=== PATIENT | male | born 1945 | race Caucasian/White ===

== ENCOUNTER 2023-07-14 10:31 | Outpatient (AMB) | payer MEDICARE, SELFPAY ==
--- NOTE | 2023-07-14 10:30 | A.OFFPC_ITS ---
Vital Signs 07/14/23 10:54 Height 5 ft 4.76 in Weight 183 lb 5 oz BMI 30.7 BP 100/58 L Blood Pressure Location Lt radial Position Sitting Respiration 16 Pulse 74 Pulse Source Pulse Oximeter Temp 97.8 F Temp Source Oral Pulse Oximetry (%) 96 Oxygen Delivery Method Room Air Intake Visit Reasons: Establish Care Allergies clindamycin Allergy (Unknown, Verified 07/14/23 10:38) Rash levofloxacin [From Levaquin] Allergy (Unknown, Verified 07/14/23 10:38) Unknown Medication List - Last Reconciled 07/14/23 by Radha Bansal MD albuterol sulfate 90 mcg/actuation inhalation alprazolam mg PO DAILY budesonide 180 mcg/actuation (Pulmicort Flexhaler) inhalation BID cholecalciferol (vitamin D3) 50 mcg PO DAILY cyanocobalamin (vitamin B-12) 1,000 mcg PO DAILY docusate sodium (Colace) 100 mg PO DAILY escitalopram oxalate 20 mg PO DAILY esomeprazole magnesium (Nexium) 20 mg PO BID finasteride 5 mg PO DAILY 90 days fluticasone propionate 50 mcg/actuation 1 spray intranasal BID folic acid 0.4 mg PO DAILY gabapentin 200 mg PO BID hydroxyzine HCl 25 mg PO TID ibuprofen 800 mg PO Q8H latanoprost 0.005% 1 drp ophthalmic (eye) QPM levothyroxine 100 mcg PO DAILY lidocaine 5% patches topical melatonin 3 mg PO BEDTIME PRN tamsulosin 0.8 mg (2 x 0.4 mg) PO DAILY 90 days tizanidine 4 mg PO Q8H PRN Tobacco use date assessed: 07/14/23 Fall risk assessment: No Falls in past year Last assessed Fall Risk: 07/14/23 Dental Screening Dental Screen Date: 07/14/23 Did you have a dental visit in the last 12 months?: Yes Did you have a dental problem in the last 6 months where you did not have access to dental care?: No Was dental information given to patient?: Patient has dentist HPI HPI Comments History of Present Illness Details The patient is a 77 year old male with a past medical history of asthma, hypothyroid, depression, chronic back pain, colon adenocarcinoma, hypogonadism, anxiety, asthma and DAVIN presenting for follow up Asthma: Frequent bronchitis. Follows with Dr Truong. COVID Feb 2023 requiring hospitalization. Required oxygen for ~1 month. Chronic pain-thoracic and flank. Doing ok. He is following with physiatry, Dr Lema and has received injections Had MRI 2020. No new pathology. Kidney imaging (-). Continues to c/o chronic right flank, back and at times rib pain. History of wedge compression fracture T9/T10 07/2011, lumbar laminectomy L4-L5 2013, history of lumbar laminectomy for spinal cord decompression ? 08/06/2017, SI joint dysfunction, vertebral compression fracture 01/22/2018, neurogenic claudications 12/2017. In 2021 was removing snow from the roof-imaging with mildly displaced right posterior 11th rib fracutre and nondisplaced fractures in the right transverse processes of T12 and L1 Endocrine: Is following with Dr Nassar for hypogonadism, hypothyroid, vitamin D deficiency and osteopenia. Anxiety/depression-Follows with Dr Gracia. Stable on lexparo and xanax [facility] Medical History (Updated 07/14/23 @ 11:59 by Radha Bansal MD) Cataracts, bilateral TMJ syndrome Sore throat Rib fracture Occipital headache Neuropathy Internal hernia Hypothyroidism Hemothorax GERD (gastroesophageal reflux disease) Depression COVID-19 Cough Chronic back pain Carcinoma of sigmoid colon Basal cell carcinoma Asthma Androgen deficiency Allergic rhinitis Abdominal pain Surgical History (Updated 07/14/23 @ 10:37 by Jaycee Aguero CMA) Hx of colonoscopy Family History (Updated 07/14/23 @ 11:02 by Jaycee Aguero CMA) Mother Anxiety Dementia Father Chronic obstructive pulmonary disease Brother Chronic obstructive pulmonary disease Brother HTN (hypertension) Maternal Grandmother Heart attack Other FH: mental illness Social History Housing: House Patient Tobacco Use Status: Never used Tobacco e-Cigarette/Vaping Use: Never Used Second Hand Smoke Exposure: Yes service: Yes Current occupational status: retired Cognitive needs: No Hearing needs: No Vision needs: No Questionnaire PHQ-9 Over the last 2 weeks, how often have you been bothered by any of the following problems? 1. Little interest or pleasure in doing things: not at all 2. Feeling down, depressed, or hopeless: not at all 3. Trouble falling or staying asleep, or sleeping too much: several days 4. Feeling tired or having little energy: not at all 5. Poor appetite or overeating: not at all 6. Feeling bad about yourself - or that you are a failure or have let yourself or your family down: not at all 7. Trouble concentrating on things, such as reading the newspaper or watching television: not at all 8. Moving or speaking so slowly that other people could have noticed. Or the opposite - being so fidgety or restless that you have been moving around a lot more than usual: not at all 9. Thoughts that you would be better off or of hurting yourself in some way: not at all Total score: 1 Depression Screening Interpretation: Negative (neg) Depression Screening Done: Yes 81076 - PHQ-9 Billing: Yes Source: Developed by Drs. Dhruv Spencer, Olivia Rodríguez, Rusty Francisco and colleagues, with an educational from [employer]. Thrive Questionnaire Date Thrive assessed: 07/14/23 I am a: Patient What is your living situation today?: I have a steady place to live Within the past 12 months, did the food you bought not last and you didn't have the money to get more?: Never true Within the past 12 months, did you worry whether your food would run out before you got money to buy more?: Never true Do you have trouble paying for medicines?: No Do you have trouble getting transportation to medical appointments?: No Do you have trouble paying your heating and electricity bill?: No Do you have trouble taking care of your child, family member or friend?: No Do you have trouble with day-to-day activities such as bathing, preparing meals, shopping, managing finances, etc.?: No Are you currently unemployed and looking for a job?: No Are you interested in more education?: No Please select the resources that you would like help with: None Currently or been in a relationship where the following occur: no concerns reported THRIVE Score: 0 AUDIT C Alcohol Use Questionnaire (AUDIT-C) 1. How often do you have a drink containing alcohol?: 2-3 times a week 2. How many drinks containing alcohol do you have on a typical day when you are drinking?: 1 or 2 3. How often do you have six or more drinks on one occasion?: Never Total Score: 3 KIERSTEN-7 AMB Questionnaire KIERSTEN-7 Date KIERSTEN - 7 assessed: 07/14/23 Feeling nervous, anxious, or on edge: 1 = Several days Not being able to stop or control worryin = Not at all Worrying too much about different things: 0 = Not at all Trouble relaxin = Several days Being so restless that it is hard to sit still: 0 = Not at all Becoming easily annoyed or irritable: 1 = Several days Feeling afraid as if something awful might happen: 0 = Not at all Total KIERSTEN-7 score (0-4 normal; 5-9 mild; 10-14 moderate; 15-21 severe): 3 Source: Developed by Drs. Dhruv Spencer, Olivia Rodríguez, Rusty Francisco and colleagues, with an educational from [employer]. KIERSTEN-7 Assessment Billing KIERSTEN-7 Assessment Tool: KIERSTEN-7 Assessment 60316 ACT Questionnaire In the past 4 weeks, how much of the time did your asthma keep you from getting as much done at work, school or at home?: None of the time During the past 4 weeks, how often have you had shortness of breath?: Not at all During the past 4 weeks, how often did your asthma symptoms wake you up at night or earlier than usual in the morning?: Not at all During the past 4 weeks, how often have you had to use your rescue inhaler or nebulizer medication?: 2-3 times a week How would you rate your asthma control during the past 4 weeks?: Well controlled ACT Interpretation: Positive Score: 22 Review of Systems Const Details: ROS CONSTITUTIONAL: Denies weight loss, fever and chills. HEENT: Denies changes in vision and hearing. RESPIRATORY: Denies SOB and cough. CV: Denies palpitations and CP GI: Denies abdominal pain, nausea, vomiting and diarrhea. : Denies dysuria and urinary frequency. MSK: Denies new myalgia and joint pain. SKIN: Denies rash and pruritus. NEUROLOGICAL: Denies headache PSYCHIATRIC: Denies recent changes in mood. Physical exam (Primary Care) Vital Signs: PHYSICAL EXAM: GENERAL: Alert and oriented x 3. NAD EYES: EOMI. Anicteric. HENT: Moist mucous membranes. LUNGS: Clear to auscultation bilaterally. CARDIOVASCULAR: Regular rate and rhythm. ABDOMEN: Soft, non-tender +bs EXTREMITIES: No edema. Non-tender. SKIN: No rashes or lesions. Warm. NEUROLOGIC: No focal neurological deficits. CN II-XII grossly intact PSYCHIATRIC: Cooperative. Appropriate mood and affect Depression Screening Interpretation: Negative (neg) Currently or been in a relationship where the following occur: no concerns reported Assessment and Plan Assessment & Plan (1) History of colon cancer: Code(s): Z85.038 - Personal history of other malignant neoplasm of large intestine (2) Asthma: Code(s): J45.909 - Unspecified asthma, uncomplicated Qualifiers: Asthma severity: moderate Asthma persistence: persistent Asthma complication type: uncomplicated Qualified Code(s): J45.40 - Moderate persistent asthma, uncomplicated (3) Androgen deficiency: Comment: continue endocrine f/up Code(s): E29.1 - Testicular hypofunction (4) Chronic back pain: Code(s): M54.9 - Dorsalgia, unspecified; G89.29 - Other chronic pain Qualifiers: Back pain location: back pain in unspecified location Back pain laterality: bilateral Qualified Code(s): M54.9 - Dorsalgia, unspecified; G89.29 - Other chronic pain (5) Hypothyroidism: Code(s): E03.9 - Hypothyroidism, unspecified Qualifiers: Hypothyroidism type: due to Rajesh's thyroiditis Qualified Code(s): E03.8 - Other specified hypothyroidism; E06.3 - Autoimmune thyroiditis (6) GERD (gastroesophageal reflux disease): Code(s): K21.9 - Gastro-esophageal reflux disease without esophagitis Qualifiers: Esophagitis presence: without esophagitis Qualified Code(s): K21.9 - Gastro-esophageal reflux disease without esophagitis Plan: Discussed vaccination schedule Due for covid booster, pneumonia booster Medications: New tamsulosin 0.8 mg (2 x 0.4 mg) PO DAILY 90 days 180 caps 3RF finasteride 5 mg PO DAILY 90 days 90 tabs 3RF Coding Level of Care Code Est Pt Level 4 (52925) Complex EM visit Add On G2211 Diagnoses History of colon cancer Z85.038 Moderate persistent asthma without complication J45.40 Asthma severity: moderate Asthma persistence: persistent Asthma complication type: uncomplicated Androgen deficiency E29.1 Chronic bilateral back pain, unspecified back location M54.9; G89.29 Back pain location: back pain in unspecified location Back pain laterality: bilateral 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
[2023-07-14 10:54] VITALS: BP 100/58; PULSE 74; RESP 16; TEMP 36.6; O2SAT 96; BMI 30.7
== END 2023-07-14 11:34 | disposition home or self-care (01) ==
PROVIDERS: Visit Provider Internal Medicine
DX: Z85.038 Personal history of other malignant neoplasm of large intestine (principal); J45.40 Moderate persistent asthma, uncomplicated; E29.1 Testicular hypofunction; M54.9 Dorsalgia, unspecified; G89.29 Other chronic pain; E03.8 Other specified hypothyroidism; E06.3 Autoimmune thyroiditis; K21.9 Gastro-esophageal reflux disease without esophagitis
CPT/HCPCS: 99214; G2211

== ENCOUNTER 2023-10-13 13:41 | Outpatient (AMB) | payer MEDICARE, SELFPAY ==
--- NOTE | 2023-10-13 13:53 | MHC.PC.OV ---
Vital Signs 10/13/23 13:56 Height 5 ft 8 in Weight 186 lb 2 oz BMI 28.3 BP 110/78 Blood Pressure Location Lt brachial Position Sitting Respiration 12 Pulse 56 Pulse Source Pulse Oximeter Temp 98 F Temp Source Tympanic Pulse Oximetry (%) 95 Oxygen Delivery Method Room Air Intake Visit Reasons: Possible Bronchitis Intake Note: pt was seen at [facility] in [place] x-ray done at [place] negative for pneumonia. patient also states hes be spitting up green sputum Allergies clindamycin Allergy (Unknown, Verified 10/13/23 14:03) Rash levofloxacin [From Levaquin] Allergy (Unknown, Verified 10/13/23 14:03) Unknown Medication List - Last Reconciled 10/13/23 by Melany Owens CNP albuterol sulfate 90 mcg/actuation inhalation albuterol sulfate 90 mcg/actuation 2 puffs inhalation Q4H PRN alprazolam mg PO DAILY budesonide 180 mcg/actuation (Pulmicort Flexhaler) inhalation BID cholecalciferol (vitamin D3) 50 mcg PO DAILY cyanocobalamin (vitamin B-12) 1,000 mcg PO DAILY docusate sodium (Colace) 100 mg PO DAILY escitalopram oxalate 20 mg PO DAILY esomeprazole magnesium (Nexium) 20 mg PO BID finasteride 5 mg PO DAILY 90 days fluticasone furoate 200 mcg/actuation (Arnuity Ellipta) 1 inh inhalation Q24H fluticasone propionate 50 mcg/actuation 1 spray intranasal BID folic acid 0.4 mg PO DAILY gabapentin 200 mg PO BID hydroxyzine HCl 25 mg PO TID ibuprofen 800 mg PO Q8H latanoprost 0.005% 1 drp ophthalmic (eye) QPM levothyroxine 100 mcg PO DAILY lidocaine 5% patches topical melatonin 3 mg PO BEDTIME PRN tamsulosin 0.8 mg (2 x 0.4 mg) PO DAILY 90 days tizanidine 4 mg PO Q8H PRN Tobacco use date assessed: 07/14/23 Dental Screening Dental Screen Date: 07/14/23 HPI HPI Comments History of Present Illness Details 78-year-old male presents with complaints of productive cough with occasional green sputum, especially at night while lying. He also reports associated head congestion and tiredness. His symptoms start two and half weeks days ago without improvement. His symptoms has not worsend. He has been taking mucinex with some relief. He has also been using his asthma inhalers. No difficulty breathing or chest pain. No fever, chills, body aches. He has had a few covid home tests that resulted negative. He notes that his initially had a cough. He notes that 3 days ago, he was evaluated and treated at [facility] urgent care clinic and was prescribed predisone 20mg daily which he has been taking as prescribed. X-ray was negative. Rapid strep was also negative. Review [facility] health record on 10/11/2023 revealed normal chest x-ray and negative rapid strep. [facility] Medical History (Updated 10/13/23 @ 14:31 by Melany Owens CNP) Cataracts, bilateral TMJ syndrome Sore throat Rib fracture Occipital headache Neuropathy Internal hernia Hypothyroidism Hemothorax GERD (gastroesophageal reflux disease) Depression COVID-19 Cough Chronic back pain Carcinoma of sigmoid colon Basal cell carcinoma Asthma Androgen deficiency Allergic rhinitis Abdominal pain Surgical History (Updated 07/14/23 @ 10:37 by Jaycee Aguero CMA) Hx of colonoscopy Family History (Updated 07/14/23 @ 11:02 by Jaycee Aguero CMA) Mother Anxiety Dementia Father Chronic obstructive pulmonary disease Brother Chronic obstructive pulmonary disease Brother HTN (hypertension) Maternal Grandmother Heart attack Other FH: mental illness Social History Housing: House Patient Tobacco Use Status: Never used Tobacco e-Cigarette/Vaping Use: Never Used Second Hand Smoke Exposure: Yes service: Yes Current occupational status: retired Cognitive needs: No Hearing needs: No Vision needs: No Questionnaire Thrive Questionnaire Date Thrive assessed: 07/14/23 KIERSTEN-7 AMB Questionnaire KIERSTEN-7 Date KIERSTEN - 7 assessed: 07/14/23 Source: Developed by Drs. Dhruv Spencer, Olivia Rodríguez, Rusty Francisco and colleagues, with an educational from [email or web address]. Review of Systems Const Details: Const Denies chills, Reports fatigue, Denies fever(s), Denies headache(s) and Denies weakness ENT Reports as per HPI Card Denies chest pain, Denies lightheadedness, Denies dyspnea and Denies other (Palpitations) Resp Reports cough, Denies dyspnea, Denies wheezing and Denies other ( shortness of breath) GI Denies abdominal pain, Denies melena, Denies hematochezia, Denies change in bowel habits, Denies dyspepsia and Denies nausea Denies hematuria and Denies dysuria Musc Denies abnormal gait, Denies myalgias, Denies arthralgias, Denies numbness and Denies tingling Skin/Breast Denies rash, Denies unusual bruising and Denies wounds Neuro Denies abnormal gait, Denies dizziness, Denies headache(s), Denies memory loss, Denies numbness, Denies Sensory deficit (Neuro), Denies tingling and Denies weakness Endo Denies cold intolerance, Reports fatigue, Denies heat intolerance, Denies polydipsia and Denies polyuria Aller/Immun Denies wheezing Physical exam (Primary Care) Vital Signs: Last Vital Signs Temp 98 F 10/13/23 13:56 Pulse 56 10/13/23 13:56 Resp 12 10/13/23 13:56 Pulse Ox 95 10/13/23 13:56 Oxygen Delivery Method Room Air 10/13/23 13:56 Tobacco/Smoking Status: Tobacco use Status Tobacco use date assessed 07/14/23 10/13/23 13:59 Patient Tobacco Use Status Never used Tobacco 10/13/23 13:59 e-Cigarette/Vaping Use Never Used 10/13/23 13:59 Thrive Assessment: Date of Thrive Assessment Date Thrive assessed 07/14/23 10/13/23 13:59 Const Other: General: no acute distress and well developed Nutritional Appearance: well nourished Orientation/consciousness: patient oriented x3 HENMT Head is normocephalic Bilateral ear canal and TM are normal Nasal turbinates and oropharynx are pink and moist Sinuses are nontender with palpation No auricular or cervical lymphadenopathy Eyes General: appearance normal, both eyes and all related structures Pupils: Equal, round and reactive pupils present EOM: EOMs intact bilaterally Resp Effort & Inspection: normal respiratory effort Auscultation: clear to auscultation bilaterally Cardio Rate: regular rate Rhythm: regular rhythm Heart sounds: S1 normal heart sound present, S2 normal heart sound present, no gallops, no murmurs and no rubs GI Palpation (GI): No Abdominal aortic bruit present, Soft to palpation, nontender, No hepatosplenomegaly present and No Rebound tenderness present Auscultation: normal bowel sounds General: Yes no CVA tenderness Back/Spine/Pelvis Back: no CVA tenderness Cervical Spine: cervical ROM normal and No Cervical spine tenderness Thoracic/Lumbar Spine: thoraco-lumbar ROM normal, No pain with thoraco-lumbar ROM, No thoracic spinal tenderness and No lumbar spinal tenderness Extrem General: Yes normal to inspection, No edema and No calf tenderness Skin General: warm and dry. Normal skin color. Normal skin turgor Neuro General: patient oriented x3, gait normal and no focal neuro deficit Cranial nerves: Yes Equal, round and reactive pupils present Cognition (Neuro): normal cognition Gait exam (Neuro): Normal gait present Sensory Exam: No Sensory deficit (Neuro) Psych Appearance: grossly normal Affect: normal affect Attitude: cooperative Thought process: Normal thought process present Assessment and Plan Assessment & Plan (1) Cough: Code(s): R05.9 - Cough, unspecified Plan: Productive cough x two and a half weeks that is worse while lying down at night Was evaluated and treated at [facility] urgent care 3 days ago. Chest x-ray and rapid strep were negative. He has been taking prednisone 20 mg daily as prescribed. He also takes Mucinex some relief. Lung sounds clear and equal bilaterally Likely upper respiratory virus Continue current treatment regimen Benzonatate ordered. Take as prescribed for cough Follow-up with worsening or new symptoms Verbalized understanding and agreed with the treatment plan Medications: New benzonatate 200 mg PO BID PRN 10 caps 1RF cough Coding Level of Care Code Est Pt Level 4 (67508) Diagnoses Cough R05.9
[2023-10-13 13:56] VITALS: BP 110/78; PULSE 56; RESP 12; TEMP 36.6; O2SAT 95; BMI 28.3
== END 2023-10-13 14:49 | disposition home or self-care (01) ==
PROVIDERS: Visit Provider Nurse Practitioner Family
DX: R05.9 Cough, unspecified (principal)
CPT/HCPCS: 99214

== ENCOUNTER 2023-11-16 11:26 | Outpatient (AMB) | payer MEDICARE, SELFPAY ==
--- NOTE | 2023-11-16 11:27 | A.OFFPC_ITS ---
Vital Signs 11/16/23 11:32 Height 5 ft 8 in BMI Reason not done Patient refused/unable BP 120/62 Blood Pressure Location Lt brachial Position Sitting Respiration 14 Pulse 67 Pulse Source Pulse Oximeter Pulse Oximetry (%) 98 Oxygen Delivery Method Room Air Intake Visit Reasons: Hdfu broken toes/ flank pain Intake Note: follow up on right leg and broken toes Allergies clindamycin Allergy (Unknown, Verified 11/16/23 11:35) Rash levofloxacin [From Levaquin] Allergy (Unknown, Verified 11/16/23 11:35) Unknown Medication List - Last Reconciled 11/16/23 by Nicole Monge, DIGESTER CAPPER- albuterol sulfate 90 mcg/actuation 2 puffs inhalation Q4H PRN alprazolam mg PO DAILY benzonatate 200 mg PO BID PRN budesonide 180 mcg/actuation (Pulmicort Flexhaler) inhalation BID cholecalciferol (vitamin D3) 50 mcg PO DAILY cyanocobalamin (vitamin B-12) 1,000 mcg PO DAILY docusate sodium (Colace) 100 mg PO DAILY escitalopram oxalate 20 mg PO DAILY esomeprazole magnesium (Nexium) 20 mg PO BID finasteride 5 mg PO DAILY 90 days fluticasone furoate 200 mcg/actuation (Arnuity Ellipta) 1 inh inhalation Q24H fluticasone propionate 50 mcg/actuation 1 spray intranasal BID folic acid 0.4 mg PO DAILY gabapentin 200 mg PO BID hydroxyzine HCl 25 mg PO TID ibuprofen 800 mg PO Q8H latanoprost 0.005% 1 drp ophthalmic (eye) QPM levothyroxine 100 mcg PO DAILY lidocaine 5% patches topical melatonin 3 mg PO BEDTIME PRN tamsulosin 0.8 mg (2 x 0.4 mg) PO DAILY 90 days tizanidine 4 mg PO Q8H PRN Tobacco use date assessed: 07/14/23 Dental Screening Dental Screen Date: 07/14/23 HPI HPI Comments History of Present Illness Details 78 y/o M here today for HDF. Paperwork christine orozco. Medications reconciled. No changes. 11/04/2023 [facility] ED visit for me chanical fall down 4 stairs Xray Right foot fracture of the 5th and possibly 3rd and 4th proximal phalanges Lumbar spine no acute findings CT of abd shows constipation ? SBO/ileus abrasion lower thoracic/lumbar spine DC Plan: Shailesh tape the 5th adn 5th toe 2nd/3rd toe & ortho consult Self referred to [facility] 11/09/23, consult note n/a. Repeat Xray done at that time. Next appt 11/25/2023 with Foot PA. Using a walking boot; this is causing ankle pain. Feels more unsteady and fears another fall w/ this use of the boot. Does take it off and walk w/ his Sketchers. Reports this feels better than the walking boot. Takes miralax daily and dulcolax. Chronic issues of which he manages. Denies any acute or new GI issues. In other regards, having some drainage from bilat eyes; left than right; itchy; worse since onset; started a few days ago. known allergies, was outside. otc drops helped a little. denies any pain, photophobia. Exam: Awake alert oriented, no acute distress, accompanied by Conjunctival injection bilat, worse on the left, purulent drainage bilat, PERRLA, EOMI, no photophobia, no edema Right foot neurovascularly intact, pain over the 4th and 5th phalanges with pal pation Healing skin tear to posterior back without signs of secondary infection Plan: He was giving an offloading shoe. He was able to walk. Reports that his foot felt fine and he felt more comfortable in regards to his steadiness. Recommend using this instead of the walking boot to reduce risk for falls. Recommend follow up with Orthopedics as scheduled Start polymyxin for the conjunctivitis Continue bowel regimen for the chronic constipation and finding on the CT scan Use a good moisturizer to the well healing area on your back, no need to use any antibiotic creams or to cover This note is constructed using voice recognition software. While every effort has been made to ensure accuracy in computer science intern, still errors may have been included Sometimes, these errors may affect the content or meaning of the given sentence . Total time spent caring for the patient today was 30 minutes. This includes time spent before the visit reviewing the chart, time spent during the visit, and time spent after the visit on documentation [facility] Medical History (Updated 11/16/23 @ 12:00 by Nicole Monge, DEVONTE-) Cataracts, bilateral TMJ syndrome Sore throat Rib fracture Occipital headache Neuropathy Internal hernia Hypothyroidism Hemothorax GERD (gastroesophageal reflux disease) Depression COVID-19 Cough Chronic back pain Carcinoma of sigmoid colon Basal cell carcinoma Asthma Androgen deficiency Allergic rhinitis Abdominal pain Surgical History (Updated 07/14/23 @ 10:37 by Jaycee Aguero CMA) Hx of colonoscopy Family History (Updated 07/14/23 @ 11:02 by Jaycee Aguero CMA) Mother Anxiety Dementia Father Chronic obstructive pulmonary disease Brother Chronic obstructive pulmonary disease Brother HTN (hypertension) Maternal Grandmother Heart attack Other FH: mental illness Social History Housing: House Patient Tobacco Use Status: Never used Tobacco e-Cigarette/Vaping Use: Never Used Second Hand Smoke Exposure: Yes service: Yes Current occupational status: retired Cognitive needs: No Hearing needs: No Vision needs: No Questionnaire Thrive Questionnaire Date Thrive assessed: 07/14/23 KIERSTEN-7 AMB Questionnaire KIERSTEN-7 Date KIERSTEN - 7 assessed: 07/14/23 Source: Developed by Drs. Dhruv Spencer, Olivia Rodríguez, Rusty Francisco and colleagues, with an educational from [employer]. Physical exam (Primary Care) Vital Signs: Last Vital Signs Pulse 67 11/16/23 11:32 Resp 14 11/16/23 11:32 BP 120/62 11/16/23 11:32 Pulse Ox 98 11/16/23 11:32 Oxygen Delivery Method Room Air 11/16/23 11:32 Tobacco/Smoking Status: Tobacco use Status Tobacco use date assessed 07/14/23 11/16/23 11:30 Patient Tobacco Use Status Never used Tobacco 11/16/23 11:30 e-Cigarette/Vaping Use Never Used 11/16/23 11:30 Thrive Assessment: Date of Thrive Assessment Date Thrive assessed 07/14/23 11/16/23 11:30 Assessment and Plan Assessment & Plan (1) Hospital discharge follow-up: Code(s): Z09 - Encounter for follow-up examination after completed treatment for conditions other than malignant neoplasm (2) Fall down stairs: Code(s): W10.8XXA - Fall (on) (from) other stairs and steps, initial encounter Qualifiers: Encounter type: sequela Qualified Code(s): W10.8XXS - Fall (on) (from) other stairs and steps, sequela (3) Closed fracture of phalanx of right fifth toe: Code(s): S92.501A - Displaced unspecified fracture of right lesser toe(s), initial encounter for closed fracture Qualifiers: Encounter type: sequela Qualified Code(s): S92.501S - Displaced unspecified fracture of right lesser toe(s), sequela (4) Constipation: Code(s): K59.00 - Constipation, unspecified Qualifiers: Constipation type: chronic idiopathic constipation Qualified Code(s): K59.04 - Chronic idiopathic constipation Medications: New polymyxin B sulf-trimethoprim 10,000 unit- 1 mg/mL APPLY TO BOTH EYES while awake; do not exceed 6 doses in 24 hours 1 drp ophthalmic (eye) QID 10 mL 0RF 5 days Patient Instructions: Put cold or warm wet cloths on your eye a few times a day if the eye hurts. Do not wear contact lenses or eye makeup until the pink eye is gone. Throw away any eye makeup you were using when you got pink eye. Clean your contacts and storage case. Wash bed linen after 24 hours of antibiotic eye drop use. Do not share eye drops. Use a clean towel to wash your face each day until symptoms are gone. This will help prevent recurrence. What is pink eye? Hanska eye is a term people use to describe an infection or irritation of the eye. The medical term for pink eye is conjunctivitis. If you have pink eye, your eye (or eyes) might: ?Turn pink or red ?Weep or ooze a gooey liquid ?Become itchy or burn ?Get stuck shut, especially when you first wake up Hanska eye can be caused by an infection, allergies, or an unknown irritation. Can you catch pink eye from someone else? Yes. When pink eye is caused by an infection, it can spread easily. Usually, people catch it from touching something that has been in contact with an inf ected person's eye. It can also be spread when an infected person touches someone else, and then that person touches their eye. If someone you know has pink eye, avoid touching their pillowcases, towels, or other personal items. When should I see a doctor or nurse? See your doctor or nurse if your eye hurts, or if you still have trouble seeing clearly after blinking. If you do not have these problems, but think you might have pink eye, your doctor or nurse might be able to give you advice over the phone. Can pink eye be treated? Most cases of pink eye go away on their own without treatment. But some types of pink eye can be treated. When pink eye is caused by infection, it is usually caused by a virus, so antibiotics will not help. Still, pink eye caused by a virus can last several days. ?Hanska eye caused by an infection with bacteria can be treated with antibiotic eye drops, gel, or ointment. ?Hanska eye caused by other problems can be treated with eye drops normally used to treat allergies. These drops will not cure the pink eye, but they can help with itchiness and irritation. When using eye drops for infection, do not touch your healthy eye after touching your infected eye. Also, do not touch the bottle or dropper directly onto 1 eye and then use it in the other. These things can cause the infection to spread from 1 eye to the other. If your eyelids feel swollen, it might also help to hold a cool wet cloth on the area. What if I wear contact lenses? If you wear contact lenses and you have symptoms of pink eye, it is really important to have a doctor look at your eyes. In people who wear contacts, the symptoms of pink eye can be caused by corneal abrasion. Corneal abrasion is a scratch on the eye and can be a serious problem. During treatment for eye infections, you might need to stop wearing your contacts for a short time. If your contacts are disposable, throw them away and use new ones. If your contacts are not disposable, you need to carefully clean t hem. You should also throw away your contact lens case and get a new one. When can I go back to work or school? If you have pink eye caused by an infection, remember that it can spread very easily. The best way to avoid spreading it is to stay away from other people until you no longer have symptoms. If this is not possible, wash your hands often (figure 1). It's also important to avoid touching your eyes and sharing items that could spread the infection. Schools and day cares usually have rules about when a child with pink eye can return. If a child has a bacterial infection, they will probably need to stay home until they have gotten antibiotic eye drops or ointment for 24 hours. Can pink eye be prevented? To keep from getting or spreading pink eye caused by an infection: ?Wash your hands often with soap and water. ?Try not to touch your eyes. ?Avoid sharing towels, bedding, or other personal items with a person who has pink eye. If your pink eye is caused by allergies, it might help to stay inside with the windows shut as much as possible during peak allergy seasons. What problems should I watch for? Call your doctor or nurse if: ?You have trouble seeing clearly after blinking. ?Your eye is still red or has drainage after 3 days. ?You have eye pain that is getting worse. Coding Level of Care Code Est Pt Level 4 (53088) Complex EM visit Add On G2211 Diagnoses Hospital discharge follow-up Z09 Fall down stairs, sequela W10.8XXS Encounter type: sequela Closed fracture of phalanx of right fifth toe, sequela S92.501S Encounter type: sequela Chronic idiopathic constipation K59.04 Constipation type: chronic idiopathic constipation
[2023-11-16 11:32] VITALS: BP 120/62; PULSE 67; RESP 14; O2SAT 98
== END 2023-11-16 13:49 | disposition home or self-care (01) ==
PROVIDERS: Visit Provider Nurse Practitioner Family
DX: Z09 Encounter for follow-up examination after completed treatment for conditions other than malignant neoplasm (principal); W10.8XXS Fall (on) (from) other stairs and steps, sequela; S92.50 Unspecified fracture of lesser toe(s); K59.04 Chronic idiopathic constipation

== ENCOUNTER → 2023-11-16 11:26 | Outpatient (BNVA) | payer MEDICARE, SELFPAY | PROVIDERS: Visit Provider Nurse Practitioner Family | DX: S92.50 Unspecified fracture of lesser toe(s) (principal); W10.8XXS Fall (on) (from) other stairs and steps, sequela; K59.04 Chronic idiopathic constipation | CPT/HCPCS: 99212 ==

== ENCOUNTER 2024-01-18 14:02 | Outpatient (AMB) | payer MEDICARE, SELFPAY ==
--- NOTE | 2024-01-18 14:16 | MHC.PC.OV ---
Vital Signs 01/18/24 14:23 Height 5 ft 8 in Weight 186 lb BMI 28.3 BP 112/52 L Blood Pressure Location Rt brachial Position Sitting Pulse 68 Pulse Source Pulse Oximeter Pulse Oximetry (%) 98 Oxygen Delivery Method Room Air Intake Visit Reasons: Pain on feet and side of the body Intake Note: bilateral hip and foot pain. Needs refill on Tizanadine. Allergies clindamycin Allergy (Unknown, Verified 11/16/23 11:35) Rash levofloxacin [From Levaquin] Allergy (Unknown, Verified 11/16/23 11:35) Unknown Tobacco use date assessed: 07/14/23 Dental Screening Dental Screen Date: 07/14/23 HPI HPI Comments History of Present Illness Details The patient is a 77 year old male with a past medical history of asthma, hypothyroid, depression, chronic back pain, colon adenocarcinoma, hypogonadism, anxiety, asthma and DAVIN presenting for follow up 11/04/2023 [facility] ED visit for mechanical fall down 4 stairs Xray Right foot fracture of the 5th and possibly 3rd and 4th proximal phalanges Lumbar spine no acute findings CT of abd shows constipation ? SBO/ileus Abrasion lower thoracic/lumbar spine Continues follow up with [facility]. Request refills muscle relaxant Has had recent increased right flank pain, right mid to lower back. He does have a history of kidney stone in the past Asthma: Frequent bronchitis. Follows with Dr Truong. FUAD Feb 2023 requiring hospitalization. Required oxygen for ~1 month. Chronic pain-thoracic and flank. Doing ok. He is following with physiatry, Dr Lema and has received injections Had MRI 2020. No new pathology. Kidney imaging (-). Continues to c/o chronic right flank, back and at times rib pain. History of wedge compression fracture T9/T10 07/2011, lumbar laminectomy L4-L5 2013, history of lumbar laminectomy for spinal cord decompression ? 08/06/2017, SI joint dysfunction, vertebral compression fracture 01/22/2018, neurogenic claudications 12/2017. In 2021 was removing snow from the roof-imaging with mildly displaced right posterior 11th rib fracutre and nondisplaced fractures in the right transverse processes of T12 and L1 Endocrine: Is following with Dr Nassar for hypogonadism, hypothyroid, vitamin D deficiency and osteopenia. Says last two labs there with high K Anxiety/depression-Follows with Dr Gracia. Stable on lexparo and xanax ROS see HPI PHYSICAL EXAM: GENERAL: Alert and oriented x 3. NAD EYES: EOMI. Anicteric. HENT: Moist mucous membranes. No scleral icterus. No cervical lymphadenopathy. LUNGS: Clear to auscultation bilaterally. CARDIOVASCULAR: Regular rate and rhythm. No murmur. No JVD. ABDOMEN: Soft, non-tender +bs EXTREMITIES: No edema. Non-tender. SKIN: No rashes or lesions. Warm. NEUROLOGIC: No focal neurological deficits. CN II-XII grossly intact PSYCHIATRIC: Cooperative. Appropriate mood and affect [facility] Medical History Cataracts, bilateral TMJ syndrome Sore throat Rib fracture Occipital headache Neuropathy Internal hernia Hypothyroidism Hemothorax GERD (gastroesophageal reflux disease) Depression COVID-19 Cough Chronic back pain Carcinoma of sigmoid colon Basal cell carcinoma Asthma Androgen deficiency Allergic rhinitis Abdominal pain Surgical History Hx of colonoscopy Family History Mother Anxiety Dementia Father Chronic obstructive pulmonary disease Brother Chronic obstructive pulmonary disease Brother HTN (hypertension) Maternal Grandmother Heart attack Other FH: mental illness Social History Housing: House Alcohol intake: former Patient Tobacco Use Status: Never used Tobacco e-Cigarette/Vaping Use: Never Used Second Hand Smoke Exposure: Yes service: Yes Current occupational status: retired Cognitive needs: No Hearing needs: No Vision needs: No Questionnaire PHQ-9 Over the last 2 weeks, how often have you been bothered by any of the following problems? 1. Little interest or pleasure in doing things: not at all 2. Feeling down, depressed, or hopeless: not at all 3. Trouble falling or staying asleep, or sleeping too much: several days 4. Feeling tired or having little energy: not at all 5. Poor appetite or overeating: not at all 6. Feeling bad about yourself - or that you are a failure or have let yourself or your family down: not at all 7. Trouble concentrating on things, such as reading the newspaper or watching television: not at all 8. Moving or speaking so slowly that other people could have noticed. Or the opposite - being so fidgety or restless that you have been moving around a lot more than usual: not at all 9. Thoughts that you would be better off or of hurting yourself in some way: not at all Total score: 1 Depression Screening Interpretation: Negative Depression Screening Done: Yes 99898 - PHQ-9 Billing: Yes Source: Developed by Drs. Dhruv Spencer, Olivia Rodríguez, Rusty Francisco and colleagues, with an educational from [employer]. Thrive Questionnaire Date Thrive assessed: 01/17/24 I am a: Patient What is your living situation today?: I have a steady place to live Within the past 12 months, did the food you bought not last and you didn't have the money to get more?: Never true Within the past 12 months, did you worry whether your food would run out before you got money to buy more?: Never true Do you have trouble paying for medicines?: No Do you have trouble getting transportation to medical appointments?: No Do you have trouble paying your heating and electricity bill?: No Do you have trouble taking care of your child, family member or friend?: No Do you have trouble with day-to-day activities such as bathing, preparing meals, shopping, managing finances, etc.?: No Are you currently unemployed and looking for a job?: No Are you interested in more education?: Yes Please select the resources that you would like help with: None Currently or been in a relationship where the following occur: No concerns reported THRIVE Score: 0 AUDIT C Alcohol Use Questionnaire (AUDIT-C) 2. How many drinks containing alcohol do you have on a typical day when you are drinking?: 1 or 2 Total Score: 0 KIERSTEN-7 AMB Questionnaire KIERSTEN-7 Date KIERSTEN - 7 assessed: 07/14/23 Feeling nervous, anxious, or on edge: 0 = Not at all Not being able to stop or control worryin = Several days Worrying too much about different things: 1 = Several days Trouble relaxin = Several days Being so restless that it is hard to sit still: 0 = Not at all Becoming easily annoyed or irritable: 1 = Several days Feeling afraid as if something awful might happen: 0 = Not at all Total KIERSTEN-7 score (0-4 normal; 5-9 mild; 10-14 moderate; 15-21 severe): 4 Source: Developed by Drs. Dhruv Spencer, Olivia Rodríguez, Rusty Francisco and colleagues, with an educational from [employer]. Physical exam (Primary Care) Vital Signs: Last Vital Signs Pulse 68 01/18/24 14:23 BP 112/52 L 01/18/24 14:23 Pulse Ox 98 01/18/24 14:23 Oxygen Delivery Method Room Air 01/18/24 14:23 BMI result Body Mass Index 28.3 Tobacco/Smoking Status: Tobacco use Status Tobacco use date assessed 07/14/23 01/18/24 14:22 Patient Tobacco Use Status Never used Tobacco 01/18/24 14:25 e-Cigarette/Vaping Use Never Used 01/18/24 14:25 PHQ-9: PHQ-9 Score PHQ-9: Total score 1 02/01/24 01:47 Depression Screening Interpretation: Negative Thrive Assessment: Date of Thrive Assessment Date Thrive assessed 01/17/24 01/18/24 14:22 Currently or been in a relationship where the following occur: No concerns reported Coding Level of Care Code Est Pt Level 4 (82691) Diagnoses Right flank pain R10.9 Additional Codes PHQ-9 - 04175 - PHQ-9 Billing: Yes ([id number]) Assessment & Plan Assessment & Plan (1) Right flank pain: Code(s): R10.9 - Unspecified abdominal pain Category: Medical Plan: Check urine, US Will send prn kayexelate Orders: Orders US retroperitoneal comp 01/18/24 R10.9 - Unspecified abdominal pain UA CC w/rflx Micro + Cult 01/18/24 R10.9 - Unspecified abdominal pain Basic Metabolic Panel 01/18/24 E87.5 - Hyperkalemia Medications: New tizanidine 4 mg PO Q8H PRN 90 caps 3RF muscle spasticity sodium polystyrene sulfonate 15 grams PO BID PRN 150 grams 1RF elevated potassium
[2024-01-18 14:23] VITALS: BP 112/52; PULSE 68; O2SAT 98; BMI 28.3
== END 2024-01-18 14:47 | disposition home or self-care (01) ==
PROVIDERS: Visit Provider Internal Medicine
DX: R10.9 Unspecified abdominal pain (principal)

== ENCOUNTER → 2024-01-18 14:02 | Outpatient (BNVA) | payer MEDICARE, SELFPAY | PROVIDERS: Visit Provider Internal Medicine | DX: R10.9 Unspecified abdominal pain (principal); E78.5 Hyperlipidemia, unspecified; J45.909 Unspecified asthma, uncomplicated; F41.9 Anxiety disorder, unspecified; F32.A Depression, unspecified; G89.29 Other chronic pain; M54.6 Pain in thoracic spine; Z87.442 Personal history of urinary calculi; Z79.899 Other long term (current) drug therapy | CPT/HCPCS: 36415; 80048; 81003; 96127; 99212 ==

== ENCOUNTER 2024-01-18 14:49 | Outpatient (REF) | payer MEDICARE, SELFPAY ==
[2024-01-18 18:42] LABS: Appearance Urine Clear; Color Urine Yellow; Glucose Urine UA Negative (Negative); Leukocyte Esterase Urine Negative (Negative); Nitrite Urine Negative (Negative); PH 5.5 (5.0-9.0); Urine Blood Negative (Negative); Urine Ketones Negative (Negative); Urine Protein Negative (Neg-Trace)
[2024-01-18 18:47] LABS: Anion Gap 11 (12-20); Blood Urea Nitrogen 23 mg/dL (9-16); Calcium 9.2 mg/dL (8.4-10.2); Carbon Dioxide 26 mmol/L (22-29); Chloride 106 mmol/L (96-108); Estimated Glomerular Filt Rate > 60; Glucose Random 106 mg/dL (60-115); Potassium 4.4 mmol/L (3.3-5.1); Sodium 139 mmol/L (135-145)
== END 2024-01-18 14:50 | disposition home or self-care (01) ==
LOC: HO.WFDLDS 14:49
PROVIDERS: Visit Provider Internal Medicine
DX: Z13.89 Encounter for screening for other disorder (principal)
CPT/HCPCS: 36415; 80048; 81003

== ENCOUNTER 2024-02-22 14:51 | Outpatient (AMB) | payer MEDICARE, SELFPAY ==
--- NOTE | 2024-02-22 15:11 | A.OFFPC_ITS ---
Vital Signs 02/22/24 15:17 Height 5 ft 8 in Weight 187 lb 6 oz BMI 28.5 BP 120/60 Blood Pressure Location Lt brachial Position Sitting Pulse 69 Pulse Source Pulse Oximeter Pulse Oximetry (%) 99 Oxygen Delivery Method Room Air Intake Visit Reasons: annual wellness visit Intake Note: Medical annual wellness Associate Financial Planner Required: No Allergies clindamycin Allergy (Unknown, Verified 02/22/24 15:11) Rash levofloxacin [From Levaquin] Allergy (Unknown, Verified 02/22/24 15:11) Unknown Tobacco use date assessed: 02/22/24 Dental Screening Dental Screen Date: 07/14/23 HPI HPI Comments History of Present Illness Details The patient is a 77 year old male with a past medical history of asthma, hypothyroid, depression, chronic back pain, colon adenocarcinoma, hypogonadism, anxiety, asthma and DAVIN presenting for AWV Asthma: Frequent bronchitis. Follows with Dr Truong at [facility]. He has been reschedule for his barium swallow multiple times due to machine malfunction. Had COVID Feb 2023 requiring hospitalization. Required oxygen for ~1 month. Chronic pain-thoracic and flank. Doing ok. He is following with physiatry, Dr Lema and has received injections Had MRI 2020. No new pathology. Kidney imaging (-). Continues to c/o chronic right flank, back and at times rib pain. History of wedge compression fracture T9/T10 07/2011, lumbar laminectomy L4-L5 2013, history of lumbar laminectomy for spinal cord decompression ? 08/06/2017, SI joint dysfunction, vertebral compression fracture 01/22/2018, neurogenic claudications 12/2017. In 2021 was removing snow from the roof-imaging with mildly displaced right posterior 11th rib fracutre and nondisplaced fractures in the right transverse processes of T12 and L1 Endocrine: Is following with Dr Nassar for hypogonadism, hypothyroid, vitamin D deficiency and osteopenia. Has had higher K on some of her recent labs Anxiety/depression-Follows with Dr Gracia. Stable on lexparo and xanax GI: Increased, almost nightly reflux despite daily PPI therapy. This is worsened over past year. He has chronic constipation, is on miralax, senna and prn dulcolax but also too feels like this has worsened in the past year. Vaccinations UTD per patient at pharmacy ROS see HPI PHYSICAL EXAM: GENERAL: Alert and oriented x 3. NAD EYES: EOMI. Anicteric. HENT: Moist mucous membranes. No scleral icterus. No cervical lymphadenopathy. LUNGS: Clear to auscultation bilaterally. CARDIOVASCULAR: Regular rate and rhythm. No murmur. No JVD. ABDOMEN: Soft, non-tender +bs EXTREMITIES: No edema. Non-tender. SKIN: No rashes or lesions. Warm. NEUROLOGIC: No focal neurological deficits. CN II-XII grossly intact PSYCHIATRIC: Cooperative. Appropriate mood and affect REPLACED BY [facility] Medical History Cataracts, bilateral TMJ syndrome Sore throat Rib fracture Occipital headache Neuropathy Internal hernia Hypothyroidism Hemothorax GERD (gastroesophageal reflux disease) Depression COVID-19 Cough Chronic back pain Carcinoma of sigmoid colon Basal cell carcinoma Asthma Androgen deficiency Allergic rhinitis Abdominal pain Surgical History Hx of colonoscopy Family History Mother Anxiety Dementia Father Chronic obstructive pulmonary disease Brother Chronic obstructive pulmonary disease Brother HTN (hypertension) Maternal Grandmother Heart attack Other FH: mental illness Social History Housing: House Alcohol intake: former Patient Tobacco Use Status: Never used Tobacco e-Cigarette/Vaping Use: Never Used Second Hand Smoke Exposure: Yes service: Yes Current occupational status: retired Cognitive needs: No Hearing needs: No Vision needs: No Questionnaire Thrive Questionnaire Date Thrive assessed: 01/17/24 I am a: Patient What is your living situation today?: I have a steady place to live Within the past 12 months, did the food you bought not last and you didn't have the money to get more?: Never true Within the past 12 months, did you worry whether your food would run out before you got money to buy more?: Never true Do you have trouble paying for medicines?: No Do you have trouble getting transportation to medical appointments?: No Do you have trouble paying your heating and electricity bill?: No Do you have trouble taking care of your child, family member or friend?: No Do you have trouble with day-to-day activities such as bathing, preparing meals, shopping, managing finances, etc.?: No Are you currently unemployed and looking for a job?: No Are you interested in more education?: Yes Please select the resources that you would like help with: None Currently or been in a relationship where the following occur: No concerns reported THRIVE Score: 0 KIERSTEN-7 AMB Questionnaire KIERSTEN-7 Date KIERSTEN - 7 assessed: 07/14/23 Source: Developed by Drs. Dhruv Spencer, Olivia Rodríguez, Rusty Francisco and colleagues, with an educational from [employer]. Physical exam (Primary Care) Vital Signs: Last Vital Signs Pulse 69 02/22/24 15:17 BP 120/60 02/22/24 15:17 Pulse Ox 99 02/22/24 15:17 Oxygen Delivery Method Room Air 02/22/24 15:17 BMI result Body Mass Index 28.5 Tobacco/Smoking Status: Tobacco use Status Tobacco use date assessed 02/22/24 02/22/24 15:17 Patient Tobacco Use Status Never used Tobacco 02/22/24 15:17 e-Cigarette/Vaping Use Never Used 02/22/24 15:17 Thrive Assessment: Date of Thrive Assessment Date Thrive assessed 01/17/24 02/22/24 15:17 Currently or been in a relationship where the following occur: No concerns reported Coding Level of Care Code Est Pt Prev Care >65y(65670) Diagnoses Encounter for subsequent annual wellness visit (AWV) in Medicare patient Z00.00 Chronic idiopathic constipation K59.04 Constipation type: chronic idiopathic constipation Androgen deficiency E29.1 Assessment & Plan Assessment & Plan (1) Encounter for subsequent annual wellness visit (AWV) in Medicare patient: Code(s): Z00.00 - Encounter for general adult medical examination without abnormal findings Category: Medical Plan: HRA reviewed. Care team reviewed with patient. 04/25 memory recall. Mechanical fall 10/2023. Negative fall risk Continues BH Worsened constipation, reflux-referral to GI. Barium being done through pul at [facility] (2) Constipation: Code(s): K59.00 - Constipation, unspecified Category: Medical Qualifiers: Constipation type: chronic idiopathic constipation Qualified Code(s): K59.04 - Chronic idiopathic constipation Plan: see above (3) Androgen deficiency: Comment: continue endocrine f/up Code(s): E29.1 - Testicular hypofunction Category: Medical Plan: see above Orders: Orders Testosterone, Free/Total 02/22/24 E03.8 - Other specified hypothyroidism, E06.3 - Autoimmune thyroiditis, E29.1 - Testicular hypofunction, E87.5 - Hyperkalemia, K21.9 - Gastro-esophageal reflux disease without esophagitis, K59.04 - Chronic idiopathic constipation Complete Blood Count Auto Diff 02/22/24 E03.8 - Other specified hypothyroidism, E06.3 - Autoimmune thyroiditis, E29.1 - Testicular hypofunction, E87.5 - Hyperkalemia, K21.9 - Gastro-esophageal reflux disease without esophagitis, K59.04 - Chronic idiopathic constipation Lipid Panel 02/22/24 E03.8 - Other specified hypothyroidism, E06.3 - Autoimmune thyroiditis, E29.1 - Testicular hypofunction, E87.5 - Hyperkalemia, K21.9 - Gastro-esophageal reflux disease without esophagitis, K59.04 - Chronic idiopathic constipation TSH reflex Free T4 02/22/24 E03.8 - Other specified hypothyroidism, E06.3 - Autoimmune thyroiditis, E29.1 - Testicular hypofunction, E87.5 - Hyperkalemia, K21.9 - Gastro-esophageal reflux disease without esophagitis, K59.04 - Chronic idiopathic constipation Comprehensive Met. Panel 02/22/24 E03.8 - Other specified hypothyroidism, E06.3 - Autoimmune thyroiditis, E29.1 - Testicular hypofunction, E87.5 - Hyperkalemia, K21.9 - Gastro-esophageal reflux disease without esophagitis, K59.04 - Chronic idiopathic constipation Referrals Gastroenterology Referral K21.9 - Gastro-esophageal reflux disease without esophagitis, K59.04 - Chronic idiopathic constipation, Z85.038 - Personal history of other malignant neoplasm of large intestine Medications: New Linzess (linaclotide) 145 mcg PO DAILY 90 caps 3RF NS K59.04 - Chronic idiopathic constipation esomeprazole magnesium (Nexium) 20 mg PO BID 180 caps 3RF Refilled finasteride 5 mg PO DAILY 90 tabs 3RF 90 days tamsulosin 0.8 mg (2 x 0.4 mg) PO DAILY 180 caps 3RF 90 days
[2024-02-22 15:17] VITALS: BP 120/60; PULSE 69; O2SAT 99; BMI 28.5
== END 2024-02-22 15:52 | disposition home or self-care (01) ==
PROVIDERS: Visit Provider Internal Medicine
DX: K59.04 Chronic idiopathic constipation (principal); E29.1 Testicular hypofunction

== ENCOUNTER → 2024-02-22 14:51 | Outpatient (BNVA) | payer MEDICARE, SELFPAY | PROVIDERS: Visit Provider Internal Medicine | DX: Z00.00 Encounter for general adult medical examination without abnormal findings (principal); K59.04 Chronic idiopathic constipation; J45.909 Unspecified asthma, uncomplicated; G89.29 Other chronic pain; E29.1 Testicular hypofunction; E03.9 Hypothyroidism, unspecified; M85.80 Other specified disorders of bone density and structure, unspecified site; E55.9 Vitamin D deficiency, unspecified; K21.9 Gastro-esophageal reflux disease without esophagitis; F41.9 Anxiety disorder, unspecified; F32.A Depression, unspecified; Z79.899 Other long term (current) drug therapy; Z85.038 Personal history of other malignant neoplasm of large intestine | CPT/HCPCS: 99212 ==

== ENCOUNTER 2024-02-29 13:51 | Outpatient (REF) | payer MEDICARE, SELFPAY ==
[2024-02-29 17:42] LABS: MANUAL DIFF FLAG NO
[2024-02-29 18:00] LABS: Basophils Absolute Auto 0.1 X10*3/uL (0.0-0.2); Basophils Percent Auto 0.9 % (0-2); Eosinophils Absolute Auto 0.2 X10*3/uL (0.0-0.4); Eosinophils Percent Auto 3.9 % (0-4); Hematocrit 41.9 % (42.0-52.0); Imm Gran Abs Auto 0.01 X10*3/uL (0.00-0.03); Imm Gran Pct Auto 0.2 % (0.0-0.4); Lymphocytes Absolute Auto 1.3 X10*3/uL (1.2-4.9); Lymphocytes Percent Auto 21.4 % (20-40); Mean Corpuscular HGB Conc 33.4 g/dl (31.0-36.0); Mean Corpuscular Hemoglobin 33.1 pg (27.0-33.0); Mean Corpuscular Volume 99.1 fL (80.0-98.0); Mean Platelet Volume 9.3 fL (9.4-12.4); Monocytes Absolute Auto 0.4 X10*3/uL (0.1-1.2); Neutrophils Absolute Auto 3.9 x10*3/uL (2.0-8.3); Neutrophils Percent Auto 66.6 % (45-73); Platelet Count 224 X10*3/uL (160-400); Red Blood Count 4.23 X10*6/uL (4.60-5.80); Red Cell Distribution Width 12.9 % (11.0-16.0); White Blood Count 5.9 X10*3/uL (4.8-10.8)
[2024-02-29 18:18] LABS: Alanine Aminotransferase 20 U/L (0-40); Albumin Level 3.9 g/dL (3.5-5.0); Alkaline Phosphatase 39 U/L (39-117); Anion Gap 9 (12-20); Aspartate Amino Transferase 28 U/L (5-37); Bilirubin Total 0.5 mg/dL (0.0-1.0); Blood Urea Nitrogen 17 mg/dL (9-16); Calcium 8.8 mg/dL (8.4-10.2); Carbon Dioxide 26 mmol/L (22-29); Chloride 110 mmol/L (96-108); Cholesterol 170 mg/dL (<200); Estimated Glomerular Filt Rate > 60; Glucose Random 96 mg/dL (60-115); HDL Cholesterol 46 mg/dL (>40); LDL Cholesterol Calculated 111 mg/dL (<100); Potassium 4.4 mmol/L (3.3-5.1); Sodium 141 mmol/L (135-145); Total Protein 6.4 g/dL (6.5-8.0); Triglycerides 68 mg/dL (<150)
[2024-02-29 18:36] LABS: TSH reflex Free T4 1.56 uIU/mL (0.32-4.0)
[2024-03-04 17:28] LABS: Testosterone, Free 88.3 pg/mL (30.0-135.0); Testosterone, Total 535 ng/dL (250-1100)
== END 2024-02-29 13:52 | disposition home or self-care (01) ==
LOC: HO.WFDLDS 13:51
PROVIDERS: Visit Provider Internal Medicine
DX: K59.04 Chronic idiopathic constipation (principal); K21.9 Gastro-esophageal reflux disease without esophagitis; E06.3 Autoimmune thyroiditis; E29.1 Testicular hypofunction
CPT/HCPCS: 36415; 80053; 80061; 84402; 84403; 84443; 85025

== ENCOUNTER 2024-07-19 14:59 | Outpatient (AMB) | payer MEDICARE, SELFPAY ==
--- NOTE | 2024-07-19 15:07 | MHC.PC.OV ---
Vital Signs 07/19/24 15:15 Height 5 ft 8 in Weight 189 lb 8 oz BMI 28.8 BP 120/76 Blood Pressure Location Lt brachial Position Sitting Respiration 12 Pulse 60 Pulse Source Pulse Oximeter Pulse Oximetry (%) 96 Oxygen Delivery Method Room Air Intake Visit Reasons: Leg Pain Intake Note: Bilateral leg pain and weakness for the past month. Back pain ongoing. Is having MRI of lower back on Thursday. Type Proof Reproducer Required: No Allergies clindamycin Allergy (Unknown, Verified 07/19/24 15:09) Rash levofloxacin [From Levaquin] Allergy (Unknown, Verified 07/19/24 15:09) Unknown Tobacco use date assessed: 07/19/24 Fall risk assessment: 1 Fall in past year (Fall in 10/2023. broke toe) Last assessed Fall Risk: 07/19/24 Dental Screening Dental Screen Date: 07/19/24 Did you have a dental visit in the last 12 months?: Yes Did you have a dental problem in the last 6 months where you did not have access to dental care?: No Was dental information given to patient?: Patient has dentist HPI HPI Comments History of Present Illness Details The patient is a 77 year old male with a past medical history of asthma, hypothyroid, depression, chronic back pain, colon adenocarcinoma, hypogonadism, anxiety, asthma and DAVIN presenting for follow up Significant increase in bilateral leg pain, heaviness and some increase in lumbar back pain over the past month. He is having difficulty sleeping. Dr Lema has ordered him an MRI which is scheduled for Thursday and he has an appt with Dr Garcia scheduled in July Chronic pain-thoracic and flank. Low back as above. He is following with physiatry, Dr Lema and has received injections Had MRI 2020. No new pathology. Kidney imaging (-). Continues to c/o chronic right flank, back and at times rib pain. History of wedge compression fracture T9/T10 07/2011, lumbar laminectomy L4-L5 2013, history of lumbar laminectomy for spinal cord decompression ? 08/06/2017, SI joint dysfunction, vertebral compression fracture 01/22/2018, neurogenic claudications 12/2017. In 2021 was removing snow from the roof-imaging with mildly displaced right posterior 11th rib fracutre and nondisplaced fractures in the right transverse processes of T12 and L1 Asthma: Frequent bronchitis. Follows with Dr Alexi at [facility]. He has been reschedule for his barium swallow multiple times due to machine malfunction. Had COVID Feb 2023 requiring hospitalization. Required oxygen for ~1 month. Endocrine: Is following with Dr Nassar for hypogonadism, hypothyroid, vitamin D deficiency and osteopenia. Has had higher K on some of her recent labs Anxiety/depression-Follows with Dr Gracia. Stable on lexparo and xanax GI: Increased, almost nightly reflux despite daily PPI therapy. This is worsened over past year. He has chronic constipation, is on miralax, senna and prn dulcolax but also too feels like this has worsened in the past year. Vaccinations UTD per patient at pharmacy ROS see HPI PHYSICAL EXAM: GENERAL: Alert and oriented x 3. NAD EYES: EOMI. Anicteric. HENT: Moist mucous membranes. No scleral icterus. No cervical lymphadenopathy. LUNGS: Clear to auscultation bilaterally. CARDIOVASCULAR: Regular rate and rhythm. No murmur. No JVD. ABDOMEN: Soft, non-tender +bs EXTREMITIES: No edema. Non-tender. SKIN: No rashes or lesions. Warm. NEUROLOGIC: No focal neurological deficits. CN II-XII grossly intact PSYCHIATRIC: Cooperative. Appropriate mood and affect [facility] Medical History Cataracts, bilateral TMJ syndrome Sore throat Rib fracture Occipital headache Neuropathy Internal hernia Hypothyroidism Hemothorax GERD (gastroesophageal reflux disease) Depression COVID-19 Cough Chronic back pain Carcinoma of sigmoid colon Basal cell carcinoma Asthma Androgen deficiency Allergic rhinitis Abdominal pain Surgical History Hx of colonoscopy Family History Mother Anxiety Dementia Father Chronic obstructive pulmonary disease Brother Chronic obstructive pulmonary disease Brother HTN (hypertension) Maternal Grandmother Heart attack Other FH: mental illness Social History Housing: House Alcohol intake: former Patient Tobacco Use Status: Never used Tobacco e-Cigarette/Vaping Use: Never Used Second Hand Smoke Exposure: Yes service: Yes Current occupational status: retired Cognitive needs: No Hearing needs: No Vision needs: No Questionnaire PHQ-9 Over the last 2 weeks, how often have you been bothered by any of the following problems? 1. Little interest or pleasure in doing things: not at all 2. Feeling down, depressed, or hopeless: not at all 3. Trouble falling or staying asleep, or sleeping too much: not at all 4. Feeling tired or having little energy: not at all 5. Poor appetite or overeating: not at all 6. Feeling bad about yourself - or that you are a failure or have let yourself or your family down: not at all 7. Trouble concentrating on things, such as reading the newspaper or watching television: not at all 8. Moving or speaking so slowly that other people could have noticed. Or the opposite - being so fidgety or restless that you have been moving around a lot more than usual: not at all 9. Thoughts that you would be better off or of hurting yourself in some way: not at all Total score: 0 Depression Screening Interpretation: Negative Depression Screening Done: Yes 80417 - PHQ-9 Billing: Yes Source: Developed by Drs. Dhruv Spencer, Olivia Rodríguez, Rusty Francisco and colleagues, with an educational from [employer]. Thrive Questionnaire Date Thrive assessed: 01/17/24 I am a: Patient What is your living situation today?: I have a steady place to live Within the past 12 months, did the food you bought not last and you didn't have the money to get more?: Never true Within the past 12 months, did you worry whether your food would run out before you got money to buy more?: Never true Do you have trouble paying for medicines?: No Do you have trouble getting transportation to medical appointments?: No Do you have trouble paying your heating and electricity bill?: No Do you have trouble taking care of your child, family member or friend?: No Do you have trouble with day-to-day activities such as bathing, preparing meals, shopping, managing finances, etc.?: No Are you currently unemployed and looking for a job?: No Are you interested in more education?: No Please select the resources that you would like help with: None Currently or been in a relationship where the following occur: I choose not to answer THRIVE Score: 0 AUDIT C Alcohol Use Questionnaire (AUDIT-C) 1. How often do you have a drink containing alcohol?: Monthly or less 2. How many drinks containing alcohol do you have on a typical day when you are drinking?: 1 or 2 3. How often do you have six or more drinks on one occasion?: Never Total Score: 1 KIERSTEN-7 AMB Questionnaire KIERSTEN-7 Date KIERTSEN - 7 assessed: 07/14/23 Feeling nervous, anxious, or on edge: 0 = Not at all Not being able to stop or control worryin = Not at all Worrying too much about different things: 0 = Not at all Trouble relaxin = Not at all Being so restless that it is hard to sit still: 0 = Not at all Becoming easily annoyed or irritable: 0 = Not at all Feeling afraid as if something awful might happen: 0 = Not at all Total KIERSTEN-7 score (0-4 normal; 5-9 mild; 10-14 moderate; 15-21 severe): 0 Source: Developed by Drs. Dhruv Spencer, Olivia Rodríguez, Rusty Francisco and colleagues, with an educational from [employer]. Physical exam (Primary Care) Vital Signs: Last Vital Signs Pulse 60 07/19/24 15:15 Resp 12 07/19/24 15:15 BP 120/76 07/19/24 15:15 Pulse Ox 96 07/19/24 15:15 Oxygen Delivery Method Room Air 07/19/24 15:15 BMI result Body Mass Index 28.8 Tobacco/Smoking Status: Tobacco use Status Tobacco use date assessed 07/19/24 07/19/24 15:17 Patient Tobacco Use Status Never used Tobacco 07/19/24 15:17 e-Cigarette/Vaping Use Never Used 07/19/24 15:17 PHQ-9: PHQ-9 Score PHQ-9: Total score 0 07/20/24 15:57 Depression Screening Interpretation: Negative Thrive Assessment: Date of Thrive Assessment Date Thrive assessed 01/17/24 07/19/24 15:17 Currently or been in a relationship where the following occur: I choose not to answer Coding Level of Care Code Tele Est Pt Level 4 (83069) Diagnoses Lumbosacral radiculopathy M54.17 Additional Codes PHQ-9 - 96919 - PHQ-9 Billing: Yes ([id number]) Assessment & Plan Assessment & Plan (1) Lumbosacral radiculopathy: Code(s): M54.17 - Radiculopathy, lumbosacral region Category: Medical Plan MRI pending Follow up physiatry, NS Oxycodone prn daytime, increase gabapentin at night continue ibuprofen, tylenol Orders: Orders Lyme IgG/IgM w/reflex to WB 07/19/24 M25.50 - Pain in unspecified joint Medications: New gabapentin 600 mg PO BEDTIME 90 tabs 3RF oxycodone Partial Fill upon patient request. 5 mg PO Q6H 7 days PRN 28 tabs 0RF pain oxycodone Partial Fill upon patient request. May pay out of pocket if insurance does not cover 5 mg PO Q6H PRN 28 tabs 0RF pain 7 days
[2024-07-19 15:15] VITALS: BP 120/76; PULSE 60; RESP 12; O2SAT 96; BMI 28.8
== END 2024-07-19 15:31 | disposition home or self-care (01) ==
LOC: HO.HMCFM 15:00
PROVIDERS: PCP Internal Medicine; Visit Provider Internal Medicine
DX: M54.17 Radiculopathy, lumbosacral region (principal)

== ENCOUNTER → 2024-07-19 14:59 | Outpatient (BNVA) | payer MEDICARE, SELFPAY | PROVIDERS: PCP Internal Medicine; Visit Provider Internal Medicine | DX: Z13.89 Encounter for screening for other disorder (principal) | CPT/HCPCS: 96127; 99212 ==

== ENCOUNTER 2024-07-19 15:37 | Outpatient (REF) | payer MEDICARE, SELFPAY ==
[2024-07-20 04:56] LABS: Lyme Abs Screen <0.90 index
== END 2024-07-19 15:38 | disposition home or self-care (01) ==
LOC: HO.WFDLDS 15:37
PROVIDERS: Visit Provider Internal Medicine
DX: M25.50 Pain in unspecified joint (principal); J45.909 Unspecified asthma, uncomplicated; E03.9 Hypothyroidism, unspecified; G47.33 Obstructive sleep apnea (adult) (pediatric); M54.17 Radiculopathy, lumbosacral region
CPT/HCPCS: 36415; 86617; 86618; 96127; 99212

== ENCOUNTER 2024-10-25 10:23 | Outpatient (REF) | payer MEDICARE, SELFPAY ==
--- OUTSIDE RECORDS SUMMARY | 2024-10-25 12:40 | XMS_ITS ---
Author Name Yazmin Duvall Address Unknown Organization [facility] Care Team Providers Care Forensic Structural Engineer Name Role Phone Unavailable Primary Care Physician Unavailab le History Of Present Illness This is a 79 year old male who is an established patient who is being seen for an evaluation of skin lesions, located on the body throughout. The lesions are asymptomatic and mild in severity. The lesions have been present for years. He also presents for education and counseling about sun exposure,evaluation for suspicious growths, and surveillance against skin cancer recurrences. His history issignificant for actinic keratoses and basal cell skin cancer . He has no family history of melanomaand no family history of non-melanoma skin cancer. Patient reports areas of concerns on neck and forehead. Allergies, Adverse Reactions, Alerts Substance RxNorm Reaction(s) Severity Status Start Da te Levaquin 728318 Rash unspecified active clindamycin Rash, Hives unspecified active 02/23 Medications Medication Generic Name RxNorm Strength Strength Unit Route Dose Dose Form Frequency Date Started Date Ended Status Indication Sig latanoprost 0.005 % Ophtha lmic (eye) Insta ll 1 drops to left eye daily active betamethaso ne, augmented betameth asone, augmente d 018915 0.05 % Topica l apply thin layer to skin cream twice a day as needed 03/15/19 21 active Appl y to rash on back and juarez y bid not to exce ed 2 week s at a time lidocaine lidocain e 5 % Topica l apply to skin adhes kip patch , medic ated at night daily active albuterol sulfate [id number] 90 mcg/actua tion Inhala tion Inhal e 1 puff HFA Aeros ol Inhal er every 4 hrs as needed active Breo Ellipta fluticas one furoate- vilanter ol 100-25 mcg/dose Inhala tion Inhal e 1 Blist er, With Inhal ation Devic e daily active Nasacort triamcin olone acetonid e 55 mcg Intran grover Insta ll 1 Aeros ol, [place] into each nostril daily active alprazolam 0.5 mg Oral Take 1 table t daily as needed active escitalopra m oxalate 20 mg Oral Take 1 table t twice a day active finasteride 269858 5 mg Oral Take 1 table t daily active gabapentin 419042 100 mg Oral Take 4 capsu le daily active hydroxyzine HCl 25 mg Oral Take 1 table t at bedtime as needed active levothyroxi ne 100 mcg Oral Take 1 table t daily active melatonin melatoni n 3 mg Oral Take 1 table t at bedtime as needed active Motrin IB ibuprofe n 800 mg Oral Take 1-2 table t daily as needed active Nexium esomepra zole magnesiu m 20 mg Oral Take 1 capsu le,de layed relea se (rojelio matamoros) twice a day active senna senna 8.6 mg Oral Take 1 table t twice a day active tamsulosin 0.4 mg Oral Take 1 capsu le daily active turmeric turmeric 400 mg Oral Take 1 capsu le daily active Vitamin D3 cholecal ciferol (vitamin D3) 50 mcg (2,000 unit) Oral Take 1 table t daily active testosteron e 20.25 mg/1.25 gram (1.62 %) Transd ermal apply to skin Gel In Meter ed-Do se Pump daily active Amoxicillin NULL 02/05/20 18 active Amoxicillin -Pot Clavulanate NULL 10/25 06/12 15 active Amoxicillin -Pot Clavulanate NULL 11/12 14 active Axiron NULL 09/01/19 14 active Azithromyci n NULL 09/01/19 14 active Cephalexin NULL 02/05/20 18 active ChlordiazeP OXIDE HCl NULL 15 active ChlordiazeP OXIDE HCl NULL 14 active ChlordiazeP OXIDE HCl NULL 14 active Clobetasol Propionate NULL 10/23 10 active Cyclobenzap rine HCl NULL 0 14 active DiazePAM NULL 02/05/20 18 active Doxycycline Hyclate NULL 03/23/19 15 active Escitalopra m Oxalate NULL 15 active Flonase NULL 09/01/19 14 active Flovent HFA NULL 09/01/19 14 active Flovent HFA NULL 09/01/19 14 active Fluticasone Propionate NULL 08/31 14 active HydrOXYzine Pamoate NULL 03/23/19 15 active Ketoconazol e NULL 01/30/20 16 active Levofloxaci n NULL 03/23/19 15 active Levoxyl NULL 09/01/19 14 active LORazepam NULL 09/01/19 14 active Metaxalone NULL 11/17/19 15 active Pantoprazol e Sodium NULL 0 15 active Piroxicam NULL 09/01/19 14 active PredniSONE NULL 11/17/19 15 active PredniSONE NULL 09/01/19 14 active ProAir HFA NULL 09/01/19 14 active Singulair NULL 09/01/19 14 active Synthroid NULL 09/01/19 14 active Testim NULL 09/01/19 14 active TiZANidine HCl NULL 02/05/20 18 active TraZODone HCl NULL 09/01/19 14 active Venlafaxine HCl ER NULL 03/23/19 15 active Venlafaxine HCl ER NULL 09/01/19 14 active Venlafaxine HCl ER NULL 09/01/19 14 active Xalatan NULL 03/23/19 15 active Problems Problem Code Type Status Date of Diagnosis Date of Resolution Epidermoid cyst of skin (disorder) 793728778(S NOMED) Diagnosis active 10/20/2024 Seborrheic keratosis (disorder) 894031701(S NOMED) Diagnosis active 10/20/2024 Skin changes due to chronic exposure to non-ionizing radiation (disorder) 890855021(S NOMED) Diagnosis active 10/20/2024 History of malignant neoplasm of skin (situation) 913470462(S NOMED) Diagnosis active 10/20/2024 Actinic keratosis (disorder) 951579365(S NOMED) Diagnosis active 10/15/2023 Epidermoid cyst of skin (disorder) 231889305(S NOMED) Diagnosis active 10/15/2023 Seborrheic keratosis (disorder) 971632651(S NOMED) Diagnosis active 10/15/2023 History of malignant neoplasm of skin (situation) 250703920(S NOMED) Diagnosis active 10/15/2023 Epidermoid cyst of skin (disorder) 922006476(S NOMED) Diagnosis active 10/02/2022 Seborrheic keratosis (disorder) 094712659(S NOMED) Diagnosis active 10/02/2022 Skin changes due to chronic exposure to non-ionizing radiation (disorder) 994436719(S NOMED) Diagnosis active 10/02/2022 History of malignant neoplasm of skin (situation) 146614570(S NOMED) Diagnosis active 10/02/2022 History of malignant neoplasm of skin (situation) 552908557(S NOMED) Diagnosis active 09/05/2021 Skin changes due to chronic exposure to non-ionizing radiation (disorder) 480409316(S NOMED) Diagnosis active 09/05/2021 Seborrheic keratosis (disorder) 805766069(S NOMED) Diagnosis active 09/05/2021 Epidermoid cyst of skin (disorder) 335410266(S NOMED) Diagnosis active 09/05/2021 Actinic keratosis (disorder) 017032204(S NOMED) Diagnosis active 08/30/2020 Seborrheic keratosis (disorder) 653548318(S NOMED) Diagnosis active 08/30/2020 Skin changes due to chronic exposure to non-ionizing radiation (disorder) 321151629(S NOMED) Diagnosis active 08/30/2020 History of malignant neoplasm of skin (situation) 926917147(S NOMED) Diagnosis active 08/30/2020 Irritant contact dermatitis, unspecified cause L24.9(ICD-1 0) Diagnosis active 03/15/2020 Personal history of other malignant neoplasm of skin Z85.828(ICD -10) Diagnosis active 03/10/2019 Epidermal cyst L72.0(ICD-1 0) Diagnosis active 03/10/2019 Other seborrheic keratosis L82.1(ICD-1 0) Diagnosis active 03/10/2019 Other melanin hyperpigmentation L81.4(ICD-1 0) Diagnosis active 03/10/2019 Person with feared health complaint in whom no diagnosis is made Z71.1(ICD-1 0) Diagnosis active 03/10/2019 Encounter for immunization Z23(ICD-10) Diagnosis active 07/22/2018 Solar lentigo (disorder) 48157381(SN OMED) Diagnosis active 07/22/2018 Senile hyperkeratosis (disorder) 763760757(S NOMED) Diagnosis active 02/04/2018 Other specified health status Z78.9(ICD-1 0) Diagnosis active 04/02/2017 Encounter for immunization Z23(ICD-10) Diagnosis active 04/02/2017 Clinical finding (finding) 903528602(S NOMED) Diagnosis active 02/04/2017 History of pneumonia (situation) 220353505(S NOMED) Diagnosis active 02/04/2017 Verruca vulgaris (disorder) 96220533(SN OMED) Diagnosis active 02/04/2017 Clinical finding (finding) 080668046(S NOMED) Diagnosis active 01/07/2017 History of pneumonia (situation) 506119584(S NOMED) Diagnosis active 01/07/2017 Verruca vulgaris (disorder) 20510127(SN OMED) Diagnosis active 01/07/2017 Senile hyperkeratosis (disorder) 212559156(S NOMED) Diagnosis active 01/30/2016 Senile hyperkeratosis (disorder) 559782567(S NOMED) Diagnosis active 11/16/2014 Senile hyperkeratosis (disorder) 812936305(S NOMED) Diagnosis active 03/23/2014 Senile hyperkeratosis (disorder) 804215320(S NOMED) Diagnosis active 08/31/2013 Malignant neoplasm of colon (disorder) 632417801(S NOMED) Problem active Arthritis (disorder) 2547616(SNO MED) Problem active Asthma (disorder) 284842259(S NOMED) Problem active Malignant neoplasm of colon (disorder) 969860719(S NOMED) Problem active Actinic keratosis (disorder) 607195562(S NOMED) Problem active Asteatosis cutis (disorder) 48340614(SN OMED) Problem active Basal cell carcinoma of skin (disorder) 006947854(S NOMED) Problem active History of hay fever (situation) 431476041(S NOMED) Problem active Sunburn of second degree (disorder) 418994094(S NOMED) Problem active Anxiety disorder (disorder) 746372107(S NOMED) Problem active Allergic rhinitis (disorder) 14712238(SN OMED) Problem active Benign prostatic hyperplasia (disorder) 891419072(S NOMED) Problem active Constipation (finding) 34068388(SN OMED) Problem active Depressive disorder (disorder) 93143326(SN OMED) Problem active Gastroesophageal reflux disease (disorder) 260983372(S NOMED) Problem active Glaucoma (disorder) 68323116(SN OMED) Problem active Hypothyroidism (disorder) 38543940(SN OMED) Problem active Insomnia (disorder) 822016132(S NOMED) Problem active Results No data Encounters Service provided at [facility], [address] [place] [address], [address], [place], [place] [id number]. Office phone number is [phone]. Office fax number is [phone]. Encounter Diagnosis Location Date / Time Type Epidermal Inclusion Cyst (L7 2.0)Seborrheic Keratoses (L82.1)Dermatoheliosis (L57.8)History of Basal Cell Carcinoma (Z85.828) [facility] 10/20/2024 12:50:00 [facility] [id number] Reason For Referral I saw Calvin Tejada in the office on October 20, 2024.Below is a summary of our visit:Epidermal Inclusion Cyst: Patient once again points to a 4 mm whitish-ludwig papule with central punctum on the right lateral neck.Plan: Reassurance.Seborrheic Keratoses: Sparsely scattered stuck on ramos keratoses are noted on the face and torso.Plan: Reassurance.Dermatoheliosis: reticulated light ramos macules in sun distribution.Plan: Counseling.History of Basal Cell Carcinoma: Scars on the right cheek, the left forehead and the right sideburn area show no evidence of recurrence.Plan: Reassurance.My impression and plan was the followin.Epidermal Inclusion CystReassurance2.Seborrheic KeratosesReassurance3.DermatoheliosisCounseling4.History of Basal Cell CarcinomaReassurance Procedures Procedure Date Documentation of current medications (pr ocedure) 10/20/2024 12:00 am [place] Destruction of premalignant skin lesion (procedure) 10/15/2023 12:00 am [place] Cryotherapy of skin lesion with liquid n itrogen (procedure) 08/30/2020 12:00 am [facility] Surgical biopsy of skin (procedure) Excision of basal cell carcinoma (proced ure) Excision of basal cell carcinoma (proced ure) Surgical biopsy of skin (procedure) Surgical biopsy of skin (procedure) Excision of basal cell carcinoma (proced ure) Excision of basal cell carcinoma (proced ure) Surgical biopsy of skin (procedure) Surgical biopsy of skin (procedure) Excision of basal cell carcinoma (proced ure) Excision of basal cell carcinoma (proced ure) Surgical biopsy of skin (procedure) Surgical biopsy of skin (procedure) History of spinal surgery (situation) Excision of basal cell carcinoma (proced ure) History of spinal surgery (situation) Excision of basal cell carcinoma (proced ure) Surgical biopsy of skin (procedure) Review Of Systems Provider reviewed on Oct 20, 2024.A focused review of systems was performed including Allergic / Immunologic, Endocrine, Integumentary, Psychiatric, and Respiratory and was notable for hay fever, thyroid problems, cough, shortness of breath, wheezing, anxiety, and depression.No Problems With Healing And No Problems With Scarring (hypertrophic Or Keloid). Assessment 1.Epidermal Inclusion CystReassurance2.Seborrheic KeratosesReassurance3.DermatoheliosisCounseling4.History of Basal Cell CarcinomaReassurance Plan of Care Future visit for 10/20/2025 - Follow up in 1 year. Other Instructions: Cse. Other Instructions: Cse. Code Detail Instructions 378507 betamethasone, augme nted 0.05 % topical cream Apply to rash on back and belly bid not to exceed 2 weeks at a time Instructions * I counseled the patient regarding the following:This is best managed by using broad-spectrum sunscreen and protective clothingI recommended the following: Broad Spectrum Sunscreen SPF 30+ Social History Code Activity Start Date End Date [id number] (SNOMED) Never smoker Sex male Sexual orientation Unspecified Gender identity Unspecified Vital Signs No data
[2024-10-25 14:41] LABS: D Dimer High Sensitivity 151 NG/ML
[2024-10-25 14:47] LABS: Anion Gap 13 (12-20); Blood Urea Nitrogen 22 mg/dL (9-16); Calcium 9.2 mg/dL (8.4-10.2); Carbon Dioxide 27 mmol/L (22-29); Chloride 108 mmol/L (96-108); Estimated Glomerular Filt Rate 51; Potassium 5.0 mmol/L (3.3-5.1); Sodium 143 mmol/L (135-145)
== END 2024-10-25 10:24 | disposition home or self-care (01) ==
LOC: HO.WFDLDS 10:23
PROVIDERS: PCP Internal Medicine; Visit Provider Internal Medicine
DX: M54.17 Radiculopathy, lumbosacral region (principal); M79.661 Pain in right lower leg; M79.662 Pain in left lower leg; R29.898 Other symptoms and signs involving the musculoskeletal system
CPT/HCPCS: 36415; 80048; 85379; 99212

== ENCOUNTER 2024-10-25 10:23 | Outpatient (AMB) | payer MEDICARE, SELFPAY ==
--- NOTE | 2024-10-25 10:39 | A.OFFPC_ITS ---
Vital Signs 10/25/24 10:44 Height 5 ft 8 in Weight 187 lb 8 oz BMI 28.5 BP 114/66 Blood Pressure Location Lt brachial Position Sitting Respiration 14 Pulse 81 Pulse Source Pulse Oximeter Pulse Oximetry (%) 96 Oxygen Delivery Method Room Air Intake Visit Reasons: follow up Intake Note: Follow up. Needs refill on cyclobenzaprine. Etl Software Engineer Required: No Allergies clindamycin Allergy (Unknown, Verified 10/25/24 10:41) Rash levofloxacin (From Levaquin) Allergy (Unknown, Verified 10/25/24 10:41) Unknown Tobacco use date assessed: 07/19/24 Dental Screening Dental Screen Date: 07/19/24 HPI HPI Comments History of Present Illness Details The patient is a 77 year old male with a past medical history of asthma, hypothyroid, depression, chronic back pain, colon adenocarcinoma, hypogonadism, anxiety, asthma and DAVIN presenting for follow up Severe increase in bilateral leg pain, heaviness, difficulty sleeping, walking, sitting. lumbar back pain improved following L3 surgery Dr Garcia in July. Continues follow up with Dr Lema. Chronic pain-thoracic and flank. He is following with physiatry, Dr Lema and has received injections Had MRI 2020. No new pathology. Kidney imaging (-). Continues to c/o chronic right flank, back and at times rib pain. History of wedge compression fracture T9/T10 07/2011, lumbar laminectomy L4-L5 2013, history of lumbar laminectomy for spinal cord decompression ? 08/06/2017, SI joint dysfunction, vertebral compression fracture 01/22/2018, neurogenic claudications 12/2017. In 2021 was removing snow from the roof-imaging with mildly displaced right posterior 11th rib fracutre and nondisplaced fractures in the right transverse processes of T12 and L1 Asthma: Frequent bronchitis. Follows with Dr Truong at [facility]. He has been reschedule for his barium swallow multiple times due to machine malfunction. Had FUAD Feb 2023 requiring hospitalization. Required oxygen for ~1 month. Endocrine: Is following with Dr Nassar for hypogonadism, hypothyroid, vitamin D deficiency and osteopenia. Has had higher K on some of her recent labs Anxiety/depression-Follows with Dr Gracia. Stable on lexparo and xanax GI: Increased, almost nightly reflux despite daily PPI therapy. This is worsened over past year. He has chronic constipation, is on miralax, senna and prn dulcolax but also too feels like this has worsened in the past year. Vaccinations UTD per patient at pharmacy ROS see HPI PHYSICAL EXAM: GENERAL: Alert and oriented x 3. NAD EYES: EOMI. Anicteric. HENT: Moist mucous membranes. No scleral icterus. No cervical lymphadenopathy. LUNGS: Clear to auscultation bilaterally. CARDIOVASCULAR: Regular rate and rhythm. No murmur. No JVD. ABDOMEN: Soft, non-tender +bs EXTREMITIES: No edema. Non-tender. SKIN: No rashes or lesions. Warm. NEUROLOGIC: Weak left dorsiflexion, plantar flexion PSYCHIATRIC: Cooperative. Appropriate mood and affect [facility] Medical History Cataracts, bilateral TMJ syndrome Sore throat Rib fracture Occipital headache Neuropathy Internal hernia Hypothyroidism Hemothorax GERD (gastroesophageal reflux disease) Depression COVID-19 Cough Chronic back pain Carcinoma of sigmoid colon Basal cell carcinoma Asthma Androgen deficiency Allergic rhinitis Abdominal pain Surgical History Hx of colonoscopy Family History Mother Anxiety Dementia Father Chronic obstructive pulmonary disease Brother Chronic obstructive pulmonary disease Brother HTN (hypertension) Maternal Grandmother Heart attack Other FH: mental illness Social History Housing: House Alcohol intake: former Patient Tobacco Use Status: Never used Tobacco e-Cigarette/Vaping Use: Never Used Second Hand Smoke Exposure: Yes service: Yes Current occupational status: retired Cognitive needs: No Hearing needs: No Vision needs: No Questionnaire Thrive Questionnaire Date Thrive assessed: 07/19/24 I am a: Patient What is your living situation today?: I have a steady place to live Within the past 12 months, did the food you bought not last and you didn't have the money to get more?: Never true Within the past 12 months, did you worry whether your food would run out before you got money to buy more?: Never true Do you have trouble paying for medicines?: No Do you have trouble getting transportation to medical appointments?: No Do you have trouble paying your heating and electricity bill?: No Do you have trouble taking care of your child, family member or friend?: No Do you have trouble with day-to-day activities such as bathing, preparing meals, shopping, managing finances, etc.?: No Are you currently unemployed and looking for a job?: No Are you interested in more education?: No Please select the resources that you would like help with: None Currently or been in a relationship where the following occur: I choose not to answer THRIVE Score: 0 KIERSTEN-7 AMB Questionnaire KIERSTEN-7 Date KIERSTEN - 7 assessed: 07/14/23 Source: Developed by Drs. Dhruv Spencer, Olivia Rodríguez, Rusty Francisco and colleagues, with an educational from [employer]. Physical exam (Primary Care) Vital Signs: Last Vital Signs Pulse 81 10/25/24 10:44 Resp 14 10/25/24 10:44 BP 114/66 10/25/24 10:44 Pulse Ox 96 10/25/24 10:44 Oxygen Delivery Method Room Air 10/25/24 10:44 BMI result Body Mass Index 28.5 Tobacco/Smoking Status: Tobacco use Status Tobacco use date assessed 07/19/24 10/25/24 10:40 Patient Tobacco Use Status Never used Tobacco 10/25/24 10:40 e-Cigarette/Vaping Use Never Used 10/25/24 10:40 Thrive Assessment: Date of Thrive Assessment Date Thrive assessed 07/19/24 10/25/24 10:40 Currently or been in a relationship where the following occur: I choose not to answer Coding Level of Care Code Est Pt Level 4 (99363) Diagnoses Lumbosacral radiculopathy at L4 M54.17 Lumbosacral radiculopathy at L5 M54.17 Leg weakness, bilateral R29.898 Assessment & Plan Assessment & Plan (1) Lumbosacral radiculopathy at L4: Code(s): M54.17 - Radiculopathy, lumbosacral region Category: Medical (2) Lumbosacral radiculopathy at L5: Code(s): M54.17 - Radiculopathy, lumbosacral region Category: Medical (3) Leg weakness, bilateral: Code(s): R29.898 - Other symptoms and signs involving the musculoskeletal system Category: Medical Plan 79 year old for follow up Severe increase in bilateral leg pain, weakness. Recent lumbar surgery -MRI ordered Low back pain remains improved following surgery Oxycodone, cyclobenzaprine ordered Orders: Orders Basic Metabolic Panel 10/25/24 M54.17 - Radiculopathy, lumbosacral region D Dimer High Sensitivity 10/25/24 M79.669 - Pain in unspecified lower leg MR lumbar spine wo/w con 10/25/24 M54.17 - Radiculopathy, lumbosacral region, Z98.890 - Other specified postprocedural states Medications: New oxycodone Partial Fill upon patient request. 5 mg PO Q8H PRN 30 tabs 0RF pain M54.17 - Radiculopathy, lumbosacral region Refilled cyclobenzaprine Take 1-2 tab oral every 8 hours as needed for muscle spasm 30 days Qty 60 60 tabs 0RF muscle spasm
[2024-10-25 10:44] VITALS: BP 114/66; PULSE 81; RESP 14; O2SAT 96; BMI 28.5
--- OUTSIDE RECORDS SUMMARY | 2024-10-25 11:55 | XMS_ITS | Encounter Summary ---
Author Organization [facility] Address [address] [place] [address] Care Team Providers Care Wares Sorter Name Role Phone Pietro Vázquez MD Primary Care Provider Unavail able Radha Gonzalez MD Primary Care Provider Carrie baires Encounter Details Date Type Department Care Team Description 07/21/2009 Metal Refiner Report Medical Records [address] [place] [address] Jennifer Ag MD Social History Tobacco Use Types Packs/Day Years Used Date Smoking Tobacco: Never Alcohol Use Standard Drinks/Week Comments No 0 (1 standard drink = 0.6 oz pur e alcohol) 7/week Sex Assigned at Date Recorded Not on file documented as of this encounter Plan of Treatment Not on file documented as of this encounter Visit Diagnoses Not on filedocumented in this encounter Care Teams Wares Sorter Relationship Specialty Start Date End Date Pietro Vázquez MD PCP - General 06/15/08 12/23/14 Radha Gonzalez MD PCP - General Internal Medicine 12/24/14 documented as of this encounter
--- OUTSIDE RECORDS SUMMARY | 2024-10-25 11:55 | XMS_ITS | Encounter Summary ---
Author Organization [facility] Address [address] [place] [address] Care Team Providers Care Prosthodontist/Educator Name Role Phone Pietro Vázquez MD Primary Care Provider Unavail able Radha Gonzalez MD Primary Care Provider Carrie baires Encounter Details Date Type Department Care Team Description 10/26/2009 Document Control Associate Report Medical Records [address] [place] [address] Jennifer Ag MD Social History Tobacco Use [...] on filedocumented in this encounter Care Teams Prosthodontist/Educator Relationship Specialty Start Date End Date Pietro Vázquez MD PCP - General 06/15/08 12/23/14 Radha Gonzalez MD PCP - General Internal Medicine 12/24/14 documented as of this encounter
--- OUTSIDE RECORDS SUMMARY | 2024-10-25 11:55 | XMS_ITS | Encounter Summary ---
Author Organization [facility] Address [address] [place] [address] Care Team Providers Care Mechanic Recovery Name Role Phone Radha Gonzalez MD Primary Care Provider Unavaila ble Reason for Visit * Reason Onset Date Comments TEST RESULTS 12/21/2018 Encounter Details Date Type Department Care Team Description 12/21/2018 Telephone Pediatrics - [address] [address] Chrystal Nichols FNP [address] [place] [address] TEST RESULTS Social History Tobacco Use Types Packs/Day Years Used Date Smoking Tobacco: Never Smokeless Tobacco: Never Alcohol Use Standard Drinks/Week Comments Yes 0 (1 standard drink = 0.6 oz pur e alcohol) 5/week Sex Assigned at Date Recorded Not on file documented as of this encounter Miscellaneous Notes * Telephone Encounter - Carlie Gurrola M.A. - 12/24/2018 2:22 PM EDT Spoke with spouse and she informed me that they are going to [place] until the end of December. I advised her to call us back when they return and let us know what he would like to do. * Telephone Encounter - DEVONTE Contreras - 12/21/2018 4:38 PM EDT I called Calvin with his overnight oximetry results. Based on the overnight oximetry, it appears that his oxygen level was below 88% for 10.3 minutes of the study and below 89% for 11.9 minutes of the study- it appears that he will qualify for overnight oximetry per his Medicare guidelines. Calvin requests time to talk to his about whether or not he wants to try the oxygen. He is known to have failed CPAP in the past and does not want to try that again. He will call me back in the office and let me know if he wants to try the oxygen and if so, I told him that he will need a follow-up with me within the next week or so. If he does call back and want to be scheduled to see me to start oxygen, please let the clinical staff book him an appointment so they can review the schedule and determine when would be best to fit him in. documented in this encounter Plan of Treatment Not on file documented as of this encounter Visit Diagnoses Not on filedocumented in this encounter Care Teams Mechanic Recovery Relationship Specialty Start Date End Date Radha Gonzalez MD PCP - General Internal Medicine 12/24/14 documented as of this encounter
--- OUTSIDE RECORDS SUMMARY | 2024-10-25 11:55 | XMS_ITS | Encounter Summary ---
Author Organization [facility] Address [address] [place] [address] Care Team Providers Care Manager Sterile Processing Name Role Phone Pietro Vázquez MD Primary Care Provider Unavail able Radha Gonzalez MD Primary Care Provider Carrie baires Encounter Details Date Type Department Care Team Description 09/13/2012 Tool Dispatcher Report Medical Records [address] [place] [address] Jennifer Ag MD Social History Tobacco Use [...] on filedocumented in this encounter Care Teams Manager Sterile Processing Relationship Specialty Start Date End Date Pietro Vázquez MD PCP - General 06/15/08 12/23/14 Radha Gonzalez MD PCP - General Internal Medicine 12/24/14 documented as of this encounter
--- OUTSIDE RECORDS SUMMARY | 2024-10-25 11:55 | XMS_ITS | Encounter Summary ---
Author Organization [facility] Address [address] [place] [address] Care Team Providers Care Associate Professor Of Literature Name Role Phone Radha Gonzalez MD Primary Care Provider Carrie baires Encounter Details Date Type Department Care Team Description 11/06/2018 Associate Professor Of Musicology Report Medical Records [address] [place] [address] Cathie Jennings PA-C Social History Tobacco Use Types Packs/Day Years [...] on filedocumented in this encounter Care Teams Associate Professor Of Literature Relationship Specialty Start Date End Date Radha Gonzalez MD PCP - General Internal Medicine 12/24/14 documented as of this encounter
--- OUTSIDE RECORDS SUMMARY | 2024-10-25 11:55 | XMS_ITS | Encounter Summary ---
Author Organization [facility] Address [address] [place] [address] Care Team Providers Care Overhead Door Technician Name Role Phone Peitro Vázquez MD Primary Care Provider Unavail able Radha Gonzalez MD Primary Care Provider Carrie baires Encounter Details Date Type Department Care Team Description 12/30/2009 Air Launch Weapons Technician Report Medical Records [address] [place] [address] Jennifer Ag MD Social History Tobacco Use [...] on filedocumented in this encounter Care Teams Overhead Door Technician Relationship Specialty Start Date End Date Pietro Vázquez MD PCP - General 06/15/08 12/23/14 Radha Gonzalez MD PCP - General Internal Medicine 12/24/14 documented as of this encounter
--- OUTSIDE RECORDS SUMMARY | 2024-10-25 11:55 | XMS_ITS | Encounter Summary ---
Author Organization [facility] Address [address] [place] [address] Care Team Providers Care Institute Director Name Role Phone Pietro Vázquez MD Primary Care Provider Unavail able Radha Gonzalez MD Primary Care Provider Carrie baires Encounter Details Date Type Department Care Team Description 07/09/2009 Supervisor Knitting Report Medical Records [address] [place] [address] Jennifer Ag MD Social History Tobacco Use [...] on filedocumented in this encounter Care Teams Institute Director Relationship Specialty Start Date End Date Pietro Vázquez MD PCP - General 06/15/08 12/23/14 Radha Gonzalez MD PCP - General Internal Medicine 12/24/14 documented as of this encounter
--- OUTSIDE RECORDS SUMMARY | 2024-10-25 11:55 | XMS_ITS | Encounter Summary ---
Author Organization [facility] Address [address] [place] [address] Care Team Providers Care Special Effects Specialist Name Role Phone Pietro Vázquez MD Primary Care Provider Unavail able Radha Gonzalez MD Primary Care Provider Carrie baires Encounter Details Date Type Department Care Team Description 12/18/2014 [facility] Medical Records [address] [place] [address] Kanu Nguyen MD Social History Tobacco Use Types Packs/Day [...] on filedocumented in this encounter Care Teams Special Effects Specialist Relationship Specialty Start Date End Date Pietro Vázquez MD PCP - General 06/15/08 12/23/14 Radha Gonzalez MD PCP - General Internal Medicine 12/24/14 documented as of this encounter
--- OUTSIDE RECORDS SUMMARY | 2024-10-25 11:55 | XMS_ITS | Encounter Summary ---
Author Organization [facility] Address [address] [place] [address] Care Team Providers Care Rn New Grad Name Role Phone Radha Gonzalez MD Primary Care Provider Carrie baires Encounter Details Date Type Department Care Team Description 11/09/2018 Sat Math Tutor Report Medical Records [address] [place] [address] Citlaly Rivers MD Social History Tobacco Use Types Packs/Day [...] on filedocumented in this encounter Care Teams Rn New Grad Relationship Specialty Start Date End Date Radha Gonzalez MD PCP - General Internal Medicine 12/24/14 documented as of this encounter
--- OUTSIDE RECORDS SUMMARY | 2024-10-25 11:55 | XMS_ITS | Encounter Summary ---
Author Organization [facility] Address [address] [place] [address] Care Team Providers Care Pot Fireman Name Role Phone Pietro Vázquez MD Primary Care Provider Unavail able Radha Gonzalez MD Primary Care Provider Carrie baires Encounter Details Date Type Department Care Team Description 03/16/2012 Outside Maintenance Worker Report Medical Records [address] [place] [address] Jennifer Ag MD Social History Tobacco Use [...] on filedocumented in this encounter Care Teams Pot Fireman Relationship Specialty Start Date End Date Pietro Vázquez MD PCP - General 06/15/08 12/23/14 Radha Gonzalez MD PCP - General Internal Medicine 12/24/14 documented as of this encounter
--- OUTSIDE RECORDS SUMMARY | 2024-10-25 11:56 | XMS_ITS | Encounter Summary ---
Author Organization [facility] Address [address] [place] [address] Care Team Providers Care Fly Rail Operator Name Role Phone Pietro Vázquez MD Primary Care Provider Unavail able Radha Gonzalez MD Primary Care Provider Carrie baires Encounter Details Date Type Department Care Team Description 04/11/2011 [facility] Medical Records [address] [place] [address] Alicia Ritchie MD Social History Tobacco Use Types Packs/Day [...] on filedocumented in this encounter Care Teams Fly Rail Operator Relationship Specialty Start Date End Date Pietro Vázquez MD PCP - General 06/15/08 12/23/14 Radha Gonzalez MD PCP - General Internal Medicine 12/24/14 documented as of this encounter
--- OUTSIDE RECORDS SUMMARY | 2024-10-25 11:56 | XMS_ITS | Encounter Summary ---
Author Organization [facility] Address [address] [place] [address] Care Team Providers Care Pump Station Operator Name Role Phone Radha Gonzalez MD Primary Care Provider Carrie baires Encounter Details Date Type Department Care Team Description 06/24/2019 Hospital Medical Records [address] [place] [address] Social History Tobacco Use Types Packs/Day Years [...] on filedocumented in this encounter Care Teams Pump Station Operator Relationship Specialty Start Date End Date Radha Gonzalez MD PCP - General Internal Medicine 12/24/14 documented as of this encounter
--- OUTSIDE RECORDS SUMMARY | 2024-10-25 11:56 | XMS_ITS | Encounter Summary ---
Author Organization [facility] Address [address] [place] [address] Care Team Providers Care Senior Insight Manager Name Role Phone Pietro Vázquez MD Primary Care Provider Unavail able Radha Gonzalez MD Primary Care Provider Carrie baires Encounter Details Date Type Department Care Team Description 03/04/2010 Latent Fingerprint Examiner Report Medical Records [address] [place] [address] Jennifer Ag MD Social History Tobacco Use [...] on filedocumented in this encounter Care Teams Senior Insight Manager Relationship Specialty Start Date End Date Pietro Vázquez MD PCP - General 06/15/08 12/23/14 Radha Gonzalez MD PCP - General Internal Medicine 12/24/14 documented as of this encounter
--- OUTSIDE RECORDS SUMMARY | 2024-10-25 11:56 | XMS_ITS | Encounter Summary ---
Author Organization [facility] Address [address] [place] [address] Phone Care Team Providers Care Motorcycle Police Officer Name Role Phone Radha Gonzalez MD Primary Care Provider + [phone] Encounter Details Date Type Department Care Team (Late Contact Info) Description 10/09/2022 Procedure Pass [facility] Intelligence Group Supervisor Center [address] [facility] [address] [address] [facility] [address] [place] [address] Social History Tobacco Use Types Packs/Day Years Used Date Smoking Tobacco: Never Smokeless Tobacco: Never Alcohol Use Standard Drinks/Week Comments Yes 3 (1 standard drink = 0.6 oz pur e alcohol) Education Answer Date Recorded Are you interested in more education? Not on khushboo e 06/25/2022 Are you concerned about learning? Not on file 06/25/2022 No 06/25/2022 No 06/25/2022 Digital Access Answer Date Recorded No 07/21/2022 No 07/21/2022 Reliable internet access at home? Not on file 07/21/2022 Device with a working camera? Not on file Sex and Gender Information Value Date Recorded Sex Assigned at Male 08/15/2022 4:44 PM EDT Legal Sex Male 10:37 PM EDT Gender Identity Male 08/15/2022 4:44 PM EDT Sexual Orientation Straight 08/15/2022 4: 44 PM EDT documented as of this encounter Plan of Treatment Upcoming Encounters Date Type Department Care Team (Late Contact Info) Description 04/26/2025 11:20 AM EST Office Visit [facility] [address] [place] [address] Jennifer Ag MD [address] [place] [phone] [email or web address] documented as of this encounter Visit Diagnoses Not on filedocumented in this encounter Care Teams Motorcycle Police Officer Relationship Specialty Start Date End Date Radha Gonzalez MD PCP - General Internal Medicine 08/15/22 documented as of this encounter Additional Source Comments The information contained in this document represents components of the legal health record. It is not the complete legal health record.[facility]
--- OUTSIDE RECORDS SUMMARY | 2024-10-25 11:56 | XMS_ITS | Encounter Summary ---
Author Organization [facility] Address [address] [place] [address] Care Team Providers Care Weatherization Crew Leader Name Role Phone Pietro Vázquez MD Primary Care Provider Unavail able Radha Gonzalez MD Primary Care Provider Carrie baires Encounter Details Date Type Department Care Team Description 12/01/2012 Telephone Physiatry - [address] [address] Julia Figueroa PA-C Social History Tobacco Use Types Packs/Day Years Used Date Smoking Tobacco: Never Smokeless Tobacco: Never Alcohol Use Standard Drinks/Week Comments Yes 0 (1 standard drink = 0.6 oz pur e alcohol) 7/week Sex Assigned at Date Recorded Not on file documented as of this encounter Miscellaneous Notes * Telephone Encounter - Julia Figueroa PA-C - 12/01/2012 10:22 AM EDT I left voicemail for patient to return my call documented in this encounter Plan of Treatment Not on file documented as of this encounter Visit Diagnoses Not on filedocumented in this encounter Care Teams Weatherization Crew Leader Relationship Specialty Start Date End Date Pietro Vázquez MD PCP - General 06/15/08 12/23/14 Radha Gonzalez MD PCP - General Internal Medicine 12/24/14 documented as of this encounter
--- OUTSIDE RECORDS SUMMARY | 2024-10-25 11:56 | XMS_ITS | Encounter Summary ---
Author Organization [facility] Address [address] [place] [address] Care Team Providers Care Finishing Machine Operator Name Role Phone Radha Gonzalez MD Primary Care Provider Carrie baires Encounter Details Date Type Department Care Team Description 10/17/2016 Stage Set Designer Report Medical Records [address] [place] [address] Cathie Jennings PA-C Social History Tobacco Use [...] on filedocumented in this encounter Care Teams Finishing Machine Operator Relationship Specialty Start Date End Date Radha Gonzalez MD PCP - General Internal Medicine 12/24/14 documented as of this encounter
--- OUTSIDE RECORDS SUMMARY | 2024-10-25 11:56 | XMS_ITS | Encounter Summary ---
Author Organization [facility] Address [address] [place] [address] Care Team Providers Care Supervisor Malted Milk Name Role Phone Radha Gonzalez MD Primary Care Provider Unavaila ble Reason for Visit * Reason Onset Date Comments TEST RESULTS 11/30/2015 Encounter Details Date Type Department Care Team Description 11/30/2015 Telephone Medicine/Pediatrics - [address] [phone] Radha Gonzalez MD TEST RESULTS Social History Tobacco Use Types Packs/Day Years Used Date Smoking Tobacco: Never Smokeless Tobacco: Never Alcohol Use Standard Drinks/Week Comments Yes 0 (1 standard drink = 0.6 oz pur e alcohol) 5/week Sex Assigned at Date Recorded Not on file documented as of this encounter Miscellaneous Notes * Telephone Encounter - Sushila Ritter Rn - 11/30/2015 10:31 AM EDT Please review and advise * Telephone Encounter - Bertha Bond - 11/30/2015 10:15 AM EDT Inform patient: ANY URGENT OR ABNORMAL RESULTS WIILL RESULT IN A CALL BACK TO THE PATIENT MATIAS. Type of test: :sleep study Date test was performed: 11/22/15 [place] [facility] [place] [facility] [place] Who ordered this test?: Radha Bansal Is the doctor here today?: YES Can the message wait until the doctor returns?: NO IF PATIENT'S PCP IS NOT IN INSTRUCT PATIENT THAT THEY WILL RECEIVE A CALL BACK WHEN THE PCP IS IN THE OFFICE NEXT. documented in this encounter Plan of Treatment Not on file documented as of this encounter Visit Diagnoses Not on filedocumented in this encounter Care Teams Supervisor Malted Milk Relationship Specialty Start Date End Date Radha Gonzalez MD PCP - General Internal Medicine 12/24/14 documented as of this encounter
--- OUTSIDE RECORDS SUMMARY | 2024-10-25 11:56 | XMS_ITS | Encounter Summary ---
Author Organization [facility] Address [address] [place] [address] Care Team Providers Care Sand Control Worker Name Role Phone Pietro Vázquez MD Primary Care Provider Unavail able Radha Gonzalez MD Primary Care Provider Carrie baires Encounter Details Date Type Department Care Team Description 09/09/2010 Raised Printer Report Medical Records [address] [place] [address] Jennifer Ag MD Social History Tobacco Use [...] on filedocumented in this encounter Care Teams Sand Control Worker Relationship Specialty Start Date End Date Pietro Vázquez MD PCP - General 06/15/08 12/23/14 Radha Gonzalez MD PCP - General Internal Medicine 12/24/14 documented as of this encounter
--- OUTSIDE RECORDS SUMMARY | 2024-10-25 11:56 | XMS_ITS | Encounter Summary ---
Author Organization [facility] Address [address] [place] [address] Care Team Providers Care Coat Operator Insulator Name Role Phone Radha Gonzalez MD Primary Care Provider Carrie baires Encounter Details Date Type Department Care Team Description 03/15/2018 Track Worker Report Medical Records [address] [place] [id number] Jennifer Ag MD Social History Tobacco Use [...] on filedocumented in this encounter Care Teams Coat Operator Insulator Relationship Specialty Start Date End Date Radha Gonzalez MD PCP - General Internal Medicine 12/24/14 documented as of this encounter
--- OUTSIDE RECORDS SUMMARY | 2024-10-25 11:56 | XMS_ITS | Encounter Summary ---
Author Organization [facility] Address [address] [place] [address] Care Team Providers Care Practice Coordinator Name Role Phone Pietro Vázquez MD Primary Care Provider Unavail able Radha Gonzalez MD Primary Care Provider Carrie baires Encounter Details Date Type Department Care Team Description 04/05/2013 Business Doc Medical Records [address] [place] [phone] Abstract, Provider Social History Tobacco Use Types Packs/Day Years [...] on filedocumented in this encounter Care Teams Practice Coordinator Relationship Specialty Start Date End Date Pietro Vázquez MD PCP - General 06/15/08 12/23/14 Radha Gonzalez MD PCP - General Internal Medicine 12/24/14 documented as of this encounter
--- OUTSIDE RECORDS SUMMARY | 2024-10-25 11:56 | XMS_ITS | Encounter Summary ---
Author Organization [facility] Address [address] [place] [address] Care Team Providers Care Scorekeeper Name Role Phone Pietro Vázquez MD Primary Care Provider Unavail able Radha Gonzalez MD Primary Care Provider Carrie baires Encounter Details Date Type Department Care Team Description 09/04/2011 Curling Machine Operator Report Medical Records [address] [place] [address] Hortencia Barillas MD Social History Tobacco Use Types Packs/Day [...] on filedocumented in this encounter Care Teams Scorekeeper Relationship Specialty Start Date End Date Pietro Vázquez MD PCP - General 06/15/08 12/23/14 Radha Gonzalez MD PCP - General Internal Medicine 12/24/14 documented as of this encounter
--- OUTSIDE RECORDS SUMMARY | 2024-10-25 11:56 | XMS_ITS | Encounter Summary ---
Author Organization [facility] Address [address] [place] [address] Care Team Providers Care Laundry Worker Name Role Phone Radha Gonzalez MD Primary Care Provider Carrie baires Encounter Details Date Type Department Care Team Description 03/22/2018 Kitchen Food Server Report Medical Records [address] [place] [address] Social History Tobacco Use Types Packs/Day Years [...] on filedocumented in this encounter Care Teams Laundry Worker Relationship Specialty Start Date End Date Radha Gonzalez MD PCP - General Internal Medicine 12/24/14 documented as of this encounter
--- OUTSIDE RECORDS SUMMARY | 2024-10-25 11:56 | XMS_ITS ---
Author Name [facility] Organization Unknown History of Medication Use Medication Directions Dispensed Refills Start Date End Date Stat us Breo Ellipta 100-25 MCG/ACT inhaler 09/09/2024 active finasteride (PROSCAR) 5 MG tablet Take 5 mg by mouth. 08/22/2024 active levothyroxine (SYNTHROID, LEVOTHROID) 100 MCG tablet Take 100 mcg by mouth every morning. 12/09/2023 active lidocaine (LIDODERM) 5 % patch Apply up to three patches at the time, 12 hours on, 12 hours off 05/01/2021 active gabapentin (NEURONTIN) 100 MG capsule TAKE 1 TO 4 CAPSULES BY MOUTH EVERY NIGHT active Lexapro 20 MG tablet Take by mouth. active oxyCODONE (ROXICODONE) 5 MG immediate release tablet TAKE 1 TABLET BY MOUTH EVERY 6 HOURS FOR 7 DAYS NEEDED FOR SEVERE PAIN active tamsulosin (FLOMAX) 0.4 MG capsule Take 0.8 mg by mouth. active tiZANidine (ZANAFLEX) 2 MG tablet TAKE 1 TABLET BY MOUTH EVERY 8 HOURS FOR 14 DAYS NEEDED FOR MUSCLE SPASM active Allergies Allergen Reaction Severity Comment Documented Date Source Statu s LEVOFLOXACIN ITCHING 03/201302/24/2014 [facility] active CLINDAMYCIN RASH/DERMATITIS Scratchy throat 06/05/2010 [facility] active Problems Problem Status Onset Date Problem Type Date of Resolution Source Low testosterone active 2011-04-23 ProblemAct [facility] Lumbar foraminal stenosis active 2024-09-12 ProblemAct [facility] Acquired hypothyroidism active 2008-07-20 ProblemAct [facility] History of colon cancer active 2013-01-31 ProblemAct [facility] Carcinoma of sigmoid colon active 2024-09-12 ProblemAct [facility] Hearing loss of right ear due to cerumen impaction active EncounterDiagnosisAct [facility] Allergic rhinitis active 2008-07-20 ProblemAct [facility] BCC (basal cell carcinoma), face active 2009-11-19 ProblemAct [facility] Lung nodule active 2024-09-12 ProblemAct [facility] Osteopenia of neck of femur active 2022-08-24 ProblemAct [facility] Vitamin D deficiency, unspecified active 2022-08-24 ProblemAct [facility] Depression active 2024-09-12 ProblemAct [facility] Neuropathy of lower extremity active 2024-09-12 ProblemAct [facility] Plantar fasciitis, left active 2024-09-12 ProblemAct [facility] Lumbar radiculitis active 2024-09-12 ProblemAct [facility] Abdominal pain active 2024-09-[address] Internal hernia active 2024-09-12 ProblemAct [facility] Colon polyps active 2014-09-28 ProblemAct [facility] Sensorineural hearing loss, bilateral active EncounterDiagnosisAct [facility] CT Tinnitus of both ears active EncounterDiagnosis Act [facility] Hemothorax active 2024-09-12 ProblemAct [facility] Myofascial pain active 2024-09-12 ProblemAct [facility] Androgen deficiency active 2024-09-12 ProblemAct [facility] 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 ProblemAct [facility] Rib fracture active 2024-09-12 ProblemAct [facility] Temporomandibular joint disorder active 2008-07-20 ProblemAct [facility] Asthma active 2008-07-20 ProblemAct [facility] Anxiety active 2019-07-12 ProblemAct [facility] GERD (gastroesophageal reflux disease) active 2011-07-28 ProblemAct [facility] 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 ProblemAct [facility] Obstructive sleep apnea active 2016-04-01 ProblemAct [facility] Spinal stenosis of lumbosacral region active 2017-07-09 ProblemAct [facility] PHN (postherpetic neuralgia) active 2024-09-12 ProblemAct [facility] Osteoarthritis of spine with radiculopathy, lumbar region active 2024-09-12 ProblemAct [facility] Hyperlipemia active 2014-07-28 ProblemAct [facility] Hyperparathyroidism active 2023-02-20 ProblemAct [facility] History of small bowel obstruction active 2019-07-12 ProblemAct [facility] High potassium active 2023-12-[address] Wedge fracture of thoracic vertebra active 2011-07-28 ProblemAct [facility] Chronic back pain active 2021-04-07 ProblemAct [facility] History of lumbar laminectomy for spinal cord decompression active 2017-08-06 ProblemAct [facility] Occipital headache active 2024-09-12 ProblemAct [facility] SI (sacroiliac) joint dysfunction active 2017-08-06 ProblemAct [facility] Immunizations Vaccine Date Source Lot Number Status RSV, Recombinant, Protein Dickens bunit RSV Prefusion F (AREXVY), Adjuvant Recon 0.5 mL PF 01/12/2023 [facility] [id number] completed Influenza Virus Trivalent Sp lit Vaccine (MDV) IM 11/12/2022 [facility] [id number] completed Influenza Virus Trivalent Sp lit Vaccine (MDV) IM 12/10/2021 [facility] [id number] completed Influenza Virus Trivalent Sp lit Vaccine (MDV) IM 11/29/2020 [facility] [id number] completed Influenza Virus Trivalent Sp lit Vaccine (MDV) IM 01/09/2020 [facility] UNK completed Influenza, Trivalent (FLUARI X, AFLURIA, FLULAVAL, FLUZONE) Preservative Free IM 01/09/2020 [facility] completed Zoster Vaccine Recombinant (Shingrix) 10/22/2019 [facility] [id number] completed Influenza Virus Trivalent Sp lit Vaccine (MDV) IM 11/16/2017 [facility] [id number] completed Influenza, Trivalent (FLUAD) Adjuvanted Preservative Free IM 65 years and older 11/16/2017 [facility] [id number] completed Influenza Virus Trivalent Sp lit Vaccine (MDV) IM 11/13/2016 [facility] [id number] completed Influenza, Trivalent (FLUARI X, AFLURIA, FLULAVAL, FLUZONE) Preservative Free IM 11/13/2016 [facility] completed Influenza Virus Trivalent Sp lit Vaccine (MDV) IM 11/23/2015 [facility] [id number] completed Influenza, Trivalent (FLUAD) Adjuvanted Preservative Free IM 65 years and older 11/23/2015 [facility] completed Td, Unspecified 03/05/2015 [facility] [id number] completed Pneumococcal Conjugate 13-Valent 02/01/2015 [facility] [id number] completed Influenza Virus Trivalent Sp lit Vaccine (MDV) IM 11/26/2014 [facility] [id number] completed Influenza, Trivalent (FLUAD) Adjuvanted Preservative Free IM 65 years and older 11/26/2014 [facility] completed Influenza Virus Trivalent Sp lit Vaccine (MDV) IM 10/14/2013 [facility] UNK completed Influenza, Trivalent (FLUARI X, AFLURIA, FLULAVAL, FLUZONE) Preservative Free IM 10/14/2013 [facility] completed Influenza Virus Trivalent Sp lit Vaccine (MDV) IM 11/09/2012 [facility] [id number] completed Influenza, Trivalent (FLUARI X, AFLURIA, FLULAVAL, FLUZONE) Preservative Free IM 11/09/2012 [facility] [id number] completed Zoster Vaccine Live/Attenuated (Zostavax) 12/09/2011 [facility] UNK completed Influenza Virus Trivalent Sp lit Vaccine (MDV) IM 11/11/2011 [facility] [id number] completed Influenza, Trivalent (FLUARI X, AFLURIA, FLULAVAL, FLUZONE) Preservative Free IM 11/11/2011 [facility] [id number] completed Influenza Virus Trivalent Sp lit Vaccine (MDV) IM 11/11/2010 [facility] [id number] completed Influenza, Trivalent (FLUARI X, AFLURIA, FLULAVAL, FLUZONE) Preservative Free IM 11/11/2010 [facility] [id number] completed Pneumococcal Polysaccharide 23-Valent 11/11/2010 [facility] [id number] completed H1N1 Inj Preservative Free 03/28/2009 [facility] [id number] completed Influenza Virus Trivalent Sp lit Vaccine (MDV) IM 11/20/2008 [facility] [id number] completed Influenza, Trivalent (FLUARI X, AFLURIA, FLULAVAL, FLUZONE) Preservative Free IM 11/20/2008 [facility] [id number] completed Tdap 07/20/2008 [facility] [id number] completed Encounters Encounter Type Encounter Reason Primary Diagnosis Location Date Ambulatory Hearing Loss Hearing Loss [facility] 09/12/2024 Care Team Organization Name Specialty Phone Email Start Date End Da te [facility] Radha Bansal Primary Care 09/12/2024 10/12/19 [facility] Radha Bansal Primary Care 06/27/2024
--- OUTSIDE RECORDS SUMMARY | 2024-10-25 11:56 | XMS_ITS | Encounter Summary ---
Author Organization [facility] Address [address] [place] [address] Care Team Providers Care Airport Operations Specialist Name Role Phone Pietro Vázquez MD Primary Care Provider Unavail able Radha Gonzalez MD Primary Care Provider Unavailshree baires Encounter Details Date Type Department Care Team Description 05/19/2013 Pt. Non Urgent Medic al Question Medicine/Pediatrics - [address] [id number] Pietro Vázquez MD Social History Tobacco Use Types Packs/Day Years Used Date Smoking Tobacco: Never Smokeless Tobacco: Never Alcohol Use Standard Drinks/Week Comments Yes 0 (1 standard drink = 0.6 oz pur e alcohol) 5/week Sex Assigned at Date Recorded Not on file documented as of this encounter Progress Notes * Hetal Barroso L.P.N. - 05/19/2013 1:56 PM EDTFrom: CALVIN TEJADA To: Pietro Vázquez MD Sent: ThuMay 19, 2013 1:12 PM Subject: Amoxicillin 500 - 3 daily Diarrhea 1Wed 2 on taken probiotic yogurt should I continue treatment? documented in this encounter Plan of Treatment Not on file documented as of this encounter Visit Diagnoses Not on filedocumented in this encounter Care Teams Airport Operations Specialist Relationship Specialty Start Date End Date Pietro Vázquez MD PCP - General 06/15/08 12/23/14 Radha Gonzalez MD PCP - General Internal Medicine 12/24/14 documented as of this encounter
--- OUTSIDE RECORDS SUMMARY | 2024-10-25 11:56 | XMS_ITS | Clinical Summary ---
Author Organization [facility] Address [address] [place] [address] Care Team Providers Care Business Systems Architect Name Role Phone Radha Bansal MD Primary Care Provider [phone] Allergies Active Allergy Reactions Criticality Noted Date Comments Clindamycin Hives,Rash/Dermatitis High 06/05/2010 Scratchy throat Levofloxacin Itching Low 02/24/201403/2013 Medications tiZANidine (ZANAFLEX) 2 MG tablet TAKE 1 TABLET BY MOUTH EVERY 8 HOURS FOR 14 DAYS NEEDED FOR MUSCLE SPASM Active tamsulosin (FLOMAX) 0.4 MG capsule Take 0.8 mg by mouth. Active oxyCODONE (ROXICODONE) 5 MG immediate release tablet TAKE 1 TABLET BY MOUTH EVERY 6 HOURS FOR 7 DAYS NEEDED FOR SEVERE PAIN Active lidocaine (LIDODERM) 5 % patch Apply up to three patches at the time, 12 hours on, 12 hours off 05/01/2021 Active levothyroxine (SYNTHROID, LEVOTHROID) 100 MCG tablet Take 100 mcg by mouth every morning. 12/09/2023 Active gabapentin (NEURONTIN) 100 MG capsule TAKE 1 TO 4 CAPSULES BY MOUTH EVERY NIGHT Active Breo Ellipta 100-25 MCG/ACT inhaler 09/09/2024 Active finasteride (PROSCAR) 5 MG tablet Take 5 mg by mouth. 08/22/2024 Active Lexapro 20 MG tablet Take by mouth. Active Active Problems Problem Noted Date Diagnosed Date Abdominal pain 09/12/2024 Androgen deficiency 09/12/2024 Carcinoma of sigmoid colon 09/12/2024 Depression 09/12/2024 Hemothorax 09/12/2024 Internal hernia 09/12/2024 Lumbar radiculitis 09/12/2024 Lung nodule 09/12/2024 Myofascial pain 09/12/2024 Neuropathy of lower extremity 09/12/2024 Occipital headache 09/12/2024 Osteoarthritis of spine with radiculopathy, lumb ar region 09/12/2024 TMJ syndrome 09/12/2024 PHN (postherpetic neuralgia) 09/12/2024 Post-COVID syndrome 09/12/2024 Plantar fasciitis, left 09/12/2024 Rib fracture 09/12/2024 Lumbar foraminal stenosis 09/12/2024 Spinal stenosis of lumbar region with radiculopa thy 09/12/2024 High potassium 12/19/2023 Hyperparathyroidism 02/20/2023 Hypogonadism in male 08/24/2022 Osteopenia of neck of femur 08/24/2022 Vitamin D deficiency, unspecified 08/24/2022 Chronic back pain 04/07/2021 Anxiety 07/12/2019 History of small bowel obstruction 07/12/2019 History of lumbar laminectomy for spinal cord de compression 08/06/2017 SI (sacroiliac) joint dysfunction 08/06/2017 Spinal stenosis of lumbosacral region 07/09/2017 Obstructive sleep apnea 04/01/2016 Overview (09/12/2024): 11/19/2016 to 12/18/2016. CPAP@ 6. 83% compliant with using the machine for >4 hours/day. Average use is 6.6 hours a night with AHI 7 with large mask leak. Colon polyps 09/28/2014 Hyperlipemia 07/28/2014 History of colon cancer 01/31/2013 GERD (gastroesophageal reflux disease) 2 Wedge fracture of thoracic vertebra 07/28/2011 Low testosterone 04/23/2011 BCC (basal cell carcinoma), face 11/19/2009 Overview (09/12/2024): Removed 2009 Acquired hypothyroidism 07/20/2008 Allergic rhinitis 07/20/2008 Asthma 07/20/2008 Depressive disorder 07/20/2008 Temporomandibular joint disorder 07/20/2008 Overview (09/12/2024): IMO update Encounters Date Type Department Care Team Description 09/12/2024 11:00 AM EDT Clinical Support [facility] [address] [place] [address] Navi Horton MD Czaplicki, Allison, Au.D Sensorineural hearing loss, bilateral (Primary Dx); Tinnitus of both ears; Hearing loss of right ear due to cerumen impaction from Last 3 Months Immunizations Immunization Administration Dates Next Due H1N1 Inj Preservative Free 03/28/2009 Influenza Virus Trivalent Sp lit Vaccine (MDV) IM 11/12/2022,12/10/2021,11/29/2020,01/08,11/16/2017,11/13/2016,11/23/2015 ,11/26/2014,10/14/2013,11/09/2012,10/24,11/11/2010,11/20/2008 Influenza, Trivalent (FLUAD) Adjuvanted Preservative Free IM 65 years and older 11/16/2017,11/23/2015,11/26/2014 Influenza, Trivalent (FLUARI X, AFLURIA, FLULAVAL, FLUZONE) Preservative Free IM 01/09/2020,11/13/2016,10/14/2013,11/09,11/11/2011,11/11/2010,11/20/2008 Pneumococcal Conjugate 13-Valent 02/01/2015 Pneumococcal Polysaccharide 23-Valent 11/11/2010 RSV, Recombinant, Protein Dickens bunit RSV Prefusion F (AREXVY), Adjuvant Recon 0.5 mL PF 01/12/2023 Td, Unspecified 03/05/2015 Tdap 07/20/2008 Zoster Vaccine Live/Attenuat ed (Zostavax) 12/09/2011 Zoster Vaccine Recombinant (Shingrix) 10/22/2019 Social History Tobacco Use Types Packs/Day Years Used Date Smoking Tobacco: Never Assessed Sex and Gender Information Value Date Recorded Sex Assigned at Not on file Legal Sex Male 6:26 PM EST Gender Identity Not on file Sexual Orientation Not on file Last Filed Vital Signs Vital Sign Reading Time Taken Comments Blood Pressure - - Pulse - - Temperature - - Respiratory Rate - - Oxygen Saturation - - Inhaled Oxygen Concentration - - Weight 83.9 kg (185 lb) 09/12/2024 10:59 AM EDT Height 172.7 cm (5' 8 ) 09/12/2024 10:59 AM EDT Body Mass Index 28.13 09/12/2024 10:59 AM EDT Plan of Treatment Upcoming Encounters Date Type Department Care Team (Late st Contact Info) Description 03/06/2025 11:15 AM EST Office Visit [facility] [place] [address] [facility] [place] [address] Navi Horton MD [address] [facility] [address] [facility] [place] [address] Health Maintenance Due Date Last Done Comments Advance Care Planning 1945 Hepatitis C Virus Screening 1945 Zoster (Shingles) Vaccine (2 of 2) 12/17/2019 10/22/2019, 12/09/2011 COVID-19 Vaccine ( season) 2023 11/12/2022, 06/06/2021, 11/24/2020, Additional history exists Influenza Vaccine 09/23/2024 11/12/2022, , 11/29/2020, Additional history exists DTaP/Tdap/Td Vaccines (3 - Td or Tdap) 03/05/2025 03/05/2015, 07/20/2008 Pneumococcal Vaccines 50+ Completed 02/01/2015, RSV Vaccine 60 years and older and Patients Completed 01/12/2023 Hepatitis B Vaccines Aged Out No long er eligible based on patient's age to complete this topic Procedures Procedure Name Priority Date/Time Associated Diagnosis Comments AUDIOMETRY Routine 09/12/2024 11:00 AM EDT Sensorineural hearing loss, bilateral Tinnitus of both ears from Last 3 Months Results * Audiometry (09/12/2024 11:00 AM EDT) Narrative Brittany Salcedo Au.D - 09/12/2024 11:00 AM EDT Suzanne Mcmullen 09/12/2024 11:37 AM Procedure Note Megan Mcmullen.D - 09/12/2024 11:00 AM EDT Images from the original note were not included. Navi Horton MD AUDIOLOGY SERVICES ORDERABLES Final Result from Last 3 Months Insurance MEDICARE PART A & [facility] Care Teams Business Systems Architect Relationship Specialty Start Date End Date Radha Bansal MD [address] [place] [address] [place] [phone] PCP - General
--- OUTSIDE RECORDS SUMMARY | 2024-10-25 11:56 | XMS_ITS | Encounter Summary ---
Author Organization [facility] Address [address] [place] [phone] Phone Care Team Providers Care Mapping Analyst Name Role Phone Radha Gonzalez MD Primary Care Provider + [phone] Encounter Details Date Type Department Care Team (Late st Contact Info) Description 10/15/2022 Procedure Pass [facility] [facility] [address] [place] [id number] Social History Tobacco Use Types Packs/Day Years [...] with a working camera? Not on file Intimate Partner Violence Answer Date R ecorded Are you denied basic needs s uch as food, clothing, or medical care? No 10/15/2022 In the past 12 months have y ou been in a relationship with a person who hurts, threatens, or tries to control you? No 10/15/2022 Are you denied basic needs s uch as food, clothing, or medical care? No 10/15/2022 In the past 12 months have y ou been in a relationship with a person who hurts, threatens, or tries to control you? No 10/15/2022 Sex and Gender Information Value Date Recorded Sex Assigned at Male 08/15/2022 4:44 PM EDT Legal Sex Male 10:37 PM EDT Gender Identity Male 08/15/2022 4:44 PM EDT Sexual Orientation Straight 08/15/2022 4: 44 PM EDT documented as of this encounter Plan of Treatment Upcoming Encounters Date Type Department Care Team (Late st Contact Info) Description 04/26/2025 11:20 AM EST Office Visit [facility] [address] [place] [phone] Jennifer Ag MD [address] [place] [phone] [email or web address] documented as of this encounter Visit Diagnoses Not on filedocumented in this encounter Care Teams Mapping Analyst Relationship Specialty Start Date End Date Radha Gonzalez MD PCP - General Internal Medicine 08/15/22 documented as of this encounter Additional Source Comments The information contained in this document represents components of the legal health record. It is not the complete legal health record.[facility]
--- OUTSIDE RECORDS SUMMARY | 2024-10-25 11:56 | XMS_ITS | Encounter Summary ---
Author Organization [facility] Address [address] [place] [address] Care Team Providers Care Tool Chaser Name Role Phone Radha Gonzalez MD Primary Care Provider Carrie baires Encounter Details Date Type Department Care Team Description 12/10/2015 [facility] [address] [place] [phone] Md Lee Social History Tobacco Use Types Packs/Day Years [...] on filedocumented in this encounter Care Teams Tool Chaser Relationship Specialty Start Date End Date Radha Gonzalez MD PCP - General Internal Medicine 12/24/14 documented as of this encounter
--- OUTSIDE RECORDS SUMMARY | 2024-10-25 11:56 | XMS_ITS | Encounter Summary ---
Author Organization [facility] Address [address] [place] [address] Care Team Providers Care Pricing Lead Name Role Phone Pietro Vázquez MD Primary Care Provider Unavail able Radha Gonzalez MD Primary Care Provider Carrie baires Encounter Details Date Type Department Care Team Description 11/18/2012 Responder Report Medical Records [address] [place] [address] Social History Tobacco Use Types Packs/Day Years [...] on filedocumented in this encounter Care Teams Pricing Lead Relationship Specialty Start Date End Date Pietro Vázquez MD PCP - General 06/15/08 12/23/14 Radha Gonzalez MD PCP - General Internal Medicine 12/24/14 documented as of this encounter
--- OUTSIDE RECORDS SUMMARY | 2024-10-25 11:56 | XMS_ITS | Encounter Summary ---
Author Organization [facility] Address [address] [place] [address] Care Team Providers Care Supervisor Roving Department Name Role Phone Pietro Vázquez MD Primary Care Provider Unavail able Radha Gonzalez MD Primary Care Provider Carrie baires Encounter Details Date Type Department Care Team Description 07/08/2013 Business Doc Medical Records [address] [place] [phone] Abstract, Provider Social History Tobacco Use Types [...] filedocumented in this encounter Care Teams Supervisor Roving Department Relationship Specialty Start Date End Date Pietro Vázquez MD PCP - General 06/15/08 12/23/14 Radha Gonzalez MD PCP - General Internal Medicine 12/24/14 documented as of this encounter
--- OUTSIDE RECORDS SUMMARY | 2024-10-25 11:56 | XMS_ITS | Encounter Summary ---
Author Organization [facility] Address [address] [place] [address] Care Team Providers Care Broadcast Director Operations Name Role Phone Pietro Vázquez MD Primary Care Provider Unavail able Radha Gonzalez MD Primary Care Provider Carrie baires Encounter Details Date Type Department Care Team Description 04/21/2013 [facility] Medical Records [address] [place] [id number] Shivam Alvarez MD Social History Tobacco Use Types Packs/Day [...] on filedocumented in this encounter Care Teams Broadcast Director Operations Relationship Specialty Start Date End Date Pietro Vázquez MD PCP - General 06/15/08 12/23/14 Radha Gonzalez MD PCP - General Internal Medicine 12/24/14 documented as of this encounter
--- OUTSIDE RECORDS SUMMARY | 2024-10-25 11:56 | XMS_ITS | Encounter Summary ---
Author Organization [facility] Address [address] [place] [address] Care Team Providers Care Pattern Chain Builder Name Role Phone Radha Gonzalez MD Primary Care Provider Carrie baires Encounter Details Date Type Department Care Team Description 09/05/2021 Black Belt Report Medical Records [address] [place] [address] Yazmin Duvall MD [address] [place] [id number] Social History Tobacco Use Types Packs/Day Years [...] on filedocumented in this encounter Care Teams Pattern Chain Builder Relationship Specialty Start Date End Date Radha Gonzalez MD PCP - General Internal Medicine 12/24/14 documented as of this encounter
--- OUTSIDE RECORDS SUMMARY | 2024-10-25 11:56 | XMS_ITS | Encounter Summary ---
Author Organization [facility] Address [address] [place] [address] Care Team Providers Care Medical Delivery Technician Name Role Phone Radha Gonzalez MD Primary Care Provider Carrie baires Encounter Details Date Type Department Care Team Description 08/10/2017 Box Office Manager Report Medical Records [address] [place] [address] Jennifer Ag MD Social History Tobacco Use [...] on filedocumented in this encounter Care Teams Medical Delivery Technician Relationship Specialty Start Date End Date Radha Gonzalez MD PCP - General Internal Medicine 12/24/14 documented as of this encounter
--- OUTSIDE RECORDS SUMMARY | 2024-10-25 11:56 | XMS_ITS | Clinical Summary ---
Author Organization [facility] Address [address] [place] [address] Phone Care Team Providers Care Communications Superintendent Name Role Phone Radha Gonzalez MD Primary Care Provider Allergies Active Allergy Reactions Criticality Noted Date Comments Clindamycin Hives,Rash Low 06/05/2010 Scratchy throat Levofloxacin Itching 02/24/201403/2013 Medications escitalopram oxalate (LEXAPRO) 20 MG tablet 3 Active gabapentin (NEURONTIN) 100 MG capsule TAKE 1 TO 3 CAPSULES BY MOUTH 1 TO 2 HOURS BEFORE BEDTIME 3 Active tamsulosin (FLOMAX) 0.4 mg Cap Take 0.8 mg by mouth. 2 Active latanoprost (XALATAN) 0.005 % ophthalmic solution INSTILL 1 DROP INTO THE LEFT EYE EVERY EVENING DIRECTED 3 Active hydrOXYzine (ATARAX) 25 MG tablet 3 Active lidocaine (LIDODERM) 5 % APPLY TOPICALLY UP TO 3 PATCHES AT A TIME TO AFFECTED AREA 12 HOURS ON AND 12 HOURS OFF 3 Active fluticasone propionate (FLOVENT HFA) 110 mcg/actuation inhaler See Instructions, INHALE 1 PUFF BY MOUTH TWICE DAILY, # 12 Gm, 0 Refills, [id number], 168, cm, 05/02/21 11:36:00 EST, Height, 83.5, kg, 04/30/21 13:11:00 EST, Dry Weight 2 Active docusate sodium (COLACE) 100 MG capsule Take 100 mg by mouth. 2 Active cholecalciferol (VITAMIN D3) 2,000 unit capsule Take 2,000 Units by mouth daily. Active cyanocobalamin, vitamin B-12, 1,000 mcg Cap Take by mouth. A ctive folic acid 20 mg Cap Take 800 mcg by mouth. Active multivitamin-min erals-lutein (CENTRUM SILVER) Tab Take 1 tablet by mouth daily. Active ALPRAZolam (XANAX) 0.5 MG tablet Take 0.5 mg by mouth nightly at bedtime as needed for sleep. Active esomeprazole (NEXIUM) 20 MG capsule Take 20 mg by mouth 2 (two) times a day. Active TURMERIC ORAL Take 538 mg by mouth. Active melatonin 3 mg Tab Take 3 mg by mouth. Active albuterol 90 mcg/actuation inhaler Inhale 2 puffs into the lungs every 6 (six) hours as needed for wheezing. Active budesonide (PULMICORT FLEXHALER) 180 mcg/actuation inhaler Inhale into the lungs 2 (two) times a day. Active levothyroxine (SYNTHROID, LEVOTHROID) 100 MCG tablet Take 1 tablet (100 mcg total) by mouth every morning. 90 tablet 3 4 Active testosterone (ANDROGEL) 20.25 mg/1.25 gram (1.62 %) transdermal gel pump Apply to the skin 3 pumps on Mondays, Wednesdays and Fridays and 2 pumps on the other days 150 g 5 5 Active Active Problems Problem Noted Date Diagnosed Date High potassium 12/19/2023 Hyperparathyroidism 02/20/2023 Assessment & Plan (02/20/2023 4:37 PM EST): Slightly elevated PTH with low normal serum calcium level and normal 25 OHD on labs dated 12/23/2022. Slightly decreased renal function with estimated GFR of 54. We discussed basic parathyroid physiology, the difference between primary and secondary hyperparathyroidism. Suspect secondary hyperparathyroidism related to slightly decreased renal function and suboptimal calcium intake. Will monitor in 2 to 3 months with improved calcium intake. Screening for prostate cancer 02/20/2023 Vitamin D deficiency, unspecified 08/24/2022 Assessment & Plan (07/16/2024 7:46 PM EDT): 25 OHD level was low normal in 11/2023. Patient is taking 2000 IU D3 daily and a multivitamin. -Continue current replacement dose -Monitor Assessment & Plan (06/07/2023 8:42 PM EDT): Normalized 25 OHD level 35.8 at the end of November 2022. Patient has been taking 2000 IU D3 daily plus a multivitamin. He may have some vitamin D and in his calcium supplement as well. Will continue current dose. Monitor periodically. Assessment & Plan (02/20/2023 4:32 PM EST): Normalized with the last 25 OHD level 35.8 at the end of November. Patient has been taking 2000 IU D3 daily plus a multivitamin. He may have some vitamin D and in his calcium supplement as well. Will continue current dose. Monitor periodically. Assessment & Plan (12/14/2022 10:08 PM EDT): Remains on 2000 IU vitamin D3 daily. Unfortunately labs on 08/12/2022 did not include vitamin D level. Will stay on current dose. Would add to next labs Assessment & Plan (08/24/2022 10:56 PM EDT): Remains on 2000 IU vitamin D3 daily. Recent vitamin D level is not available, added to next labs Hypogonadism in male 08/24/2022 Assessment & Plan (07/16/2024 7:51 PM EDT): Total testosterone level was 582 while using 3 pumps of testosterone gel daily consistently. He feels more confrontational lately. Has BPH with decreased urine flow treated with Flomax. Recent prostate exam by urologist in 05/2024, they had no contraindication to continue testosterone replacement. Patient denies ED. H&H was normal 15.3/45.6 in 06/2024. We discussed benefit of testosterone replacement on bone health, muscle strength/mass, motivation, mood. Patient feels comfortable continuing on treatment. -Will decrease testosterone gel by using 2 pumps 4 days a week alternating with 3 pumps 3 days a week. If not feeling well, he may decrease his dose back to 2 pumps daily -Monitor T level, H&H and yearly PSA and prostate exam by urologist. Assessment & Plan (06/07/2023 8:44 PM EDT): Primary hypogonadism treated with Androderm patch for years. Switched to testosterone gel in early 2022 what he stopped because of worry about transferring the child to his grandchildren during the summer. He became more fatigued off of the testosterone. We resumed the testosterone gel 2 pumps daily at the end of 01/2023. He reports improved energy and improved depression on treatment. Recent testosterone level was at target with total testosterone 356. PSA normal at 1.8. H&H normal. He is followed by his urologist for BPH. Denies worsening of dysuria. Plan to continue to 2 pumps testosterone gel daily. Monitor labs in 6 months. Assessment & Plan (02/20/2023 4:34 PM EST): He was on Androderm for years and was switched to the testosterone gel in early 04/2022 because of difficulty obtaining the patch. He stopped the testosterone gel soon after starting it because of worry about transferring the gel to his grandchildren.. He reports some fatigue and some memory issues as well as some decrease in motivation off of treatment. Testosterone level is low with elevated FSH and LH suggesting primary hypogonadism. We again discussed pros and cons of resuming testosterone replacement. Patient agreed to restart, will send Rx of AndroGel pump and start with 2 depressions daily. Repeat testosterone with CBC and check PSA in 2 to 3 months. He will check with his urologist when he is due for a prostate exam. Assessment & Plan (12/14/2022 10:15 PM EDT): He was on Androderm for years and was switched to the testosterone gel in early 04/2022 because of difficulty obtaining the patch. He stopped the testosterone gel soon after starting it because of worry about transferring the gel to his grandchildren.. He reports some fatigue but otherwise feels okay off of treatment. Patient decided to continue to stay off of testosterone replacement. Assessment & Plan (08/24/2022 11:00 PM EDT): History of osteopenia of the left femoral neck with T score -1.6 in 06/2020. Patient reports possible vertebral fracture about 2 years ago while raking snow. He lost about 2 inches in height. Recent vitamin D level is not available. We discussed the importance of adequate calcium and vitamin D intake as well as regular weightbearing exercises and fall prevention. Patient will schedule repeat DEXA at [facility] and will discuss further management after DEXA reviewed. . Acquired hypothyroidism 08/24/2022 Assessment & Plan (07/16/2024 7:51 PM EDT): Clinically and biochemically euthyroid. TSH 2.18 in 06/2024 on 100 mcg levothyroxine daily. -Continue current treatment -Repeat TSH in 6 to 8-month or as clinically indicated -Reviewed symptoms of under and over replacement, patient to call if concerned Assessment & Plan (06/07/2023 8:45 PM EDT): Clinically and biochemically euthyroid on 100 mcg levothyroxine daily. Last TSH 3.45 on 12/23/2022. PLAN to keep current treatment. Reviewed symptoms of under and over replacement, patient to call if concerned. To repeat TSH in 6 months or as clinically indicated. Assessment & Plan (02/20/2023 4:35 PM EST): Clinically and biochemically euthyroid on 100 mcg levothyroxine daily. Last TSH 3.45 ON 12/23/2022. PLAN to keep current treatment. Reviewed symptoms of under and over replacement, patient to call if concerned. To repeat TSH in 6 to 12 months or as clinically indicated. Assessment & Plan (12/14/2022 10:16 PM EDT): Clinically and biochemically euthyroid on 100 mcg levothyroxine daily. Last TSH was 1.67 in 05/2022. PLAN to keep current treatment. Reviewed symptoms of under and over replacement, patient to call if concerned. To repeat TSH soon. Assessment & Plan (08/24/2022 11:06 PM EDT): Clinically and biochemically euthyroid on 100 mcg levothyroxine daily. Last TSH was 1.67 in 05/2022. We will keep current treatment. Reviewed symptoms of under and over replacement, patient to call if concerned otherwise repeat TSH in 10/2022. Patient told me that he had some hoarseness and PCP ordered an ultrasound of the thyroid in 05/2022 which did not show any nodules. The ultrasound report was not available to me. Osteopenia of neck of femur 08/24/2022 Assessment & Plan (07/16/2024 7:53 PM EDT): History of osteopenia of the left femoral neck with T score -1.6 in 06/2020. Patient reports possible vertebral fracture about 2-3 years ago while raking snow a few years ago. Report of MRI of the lumbar spine from 09/2022 and x-ray of the lumbosacral spine from 10/2022 did not report any fracture. He lost about 2 inches in height. Thoracic spine images are not available. We reviewed his last DEXA dated 01/19/2023 which was normal with lowest T-score of -1.0 at the femoral neck. He resumed testosterone replacement in 01/2023 which should help his bone health. -Discussed the importance of adequate calcium and vitamin D intake as well as regular weightbearing exercises and fall prevention. -Would repeat DEXA after 01/12/[address] [facility]. Assessment & Plan (06/07/2023 8:46 PM EDT): History of osteopenia of the left femoral neck with T score -1.6 in 06/2020. Patient reports possible vertebral fracture about 2-3 years ago while raking snow a few years ago. Report of MRI of the lumbar spine from 09/2022 and x-ray of the lumbosacral spine from 10/2022 did not report any fracture. He lost about 2 inches in height. Thoracic spine images are not available. We reviewed his last DEXA dated 01/19/2023 which was normal with lowest T-score of -1.0 at the femoral neck. He resumed testosterone replacement in 01/2023 which will help his bone health. Discussed the importance of adequate calcium and vitamin D intake as well as regular weightbearing exercises and fall prevention. Would repeat DEXA after 01/12/2025 at [facility]. Assessment & Plan (02/20/2023 4:39 PM EST): History of osteopenia of the left femoral neck with T score -1.6 in 06/2020. Patient reports possible vertebral fracture about 2 years ago while raking snow a few years ago. Report of MRI of the lumbar spine from 09/2022 and x-ray of the lumbosacral spine from 10/2022 did not report any fracture. He lost about 2 inches in height. Thoracic spine images are not available. We reviewed his last DEXA dated 01/19/2023 which was normal with lowest T-score of -1.0 at the femoral neck. He will resume testosterone replacement which will help his bone health. Discussed the importance of adequate calcium and vitamin D intake as well as regular weightbearing exercises and fall prevention. Would repeat DEXA in 2 years. Assessment & Plan (12/14/2022 10:10 PM EDT): History of osteopenia of the left femoral neck with T score -1.6 in 06/2020. Patient reports possible vertebral fracture about 2 years ago while raking snow. Report of MRI of the lumbar spine from 09/2022 and x-ray of the lumbosacral spine from 10/2022 did not report any fracture. He lost about 2 inches in height. Recent vitamin D level is not available. We discussed the importance of adequate calcium and vitamin D intake as well as regular weightbearing exercises and fall prevention. Patient chose to stay off of testosterone replacement. DEXA scheduled on 01/19/2023. Will review and discuss further management. Assessment & Plan (08/24/2022 11:05 PM EDT): History of osteopenia of the left femoral neck with T score -1.6 on DEXA in 06/2020. Patient recalls a vertebral fracture about 2 years ago while raking snow. He lost about 2 inches in height. Recent vitamin D level is not available while he is taking 2000 IU vitamin D3 daily consistently. We discussed the importance of adequate calcium and vitamin D intake as well as regular weightbearing exercises and fall prevention. Plan to repeat DEXA and vitamin D level and will discuss further management. Encounters Date Type Department Care Team Description 07/29/2024 Telephone [facility] [address] [place] [address] Darlene Connor MA from Last 3 Months Social History Tobacco Use Types Packs/Day Years Used Date Smoking Tobacco: Never Smokeless Tobacco: Never Tobacco Cessation:Counseling Given: Not Answered Alcohol Use Standard Drinks/Week Comments Yes 3 [...] Orientation Straight 08/15/2022 4: 44 PM EDT Last Filed Vital Signs Vital Sign Reading Time Taken Comments Blood Pressure 107/62 07/13/2024 10:48 AM EDT Pulse 57 07/13/2024 10:48 AM EDT Temperature 36.7 C (98.1 F) 10/15/2022 1:40 PM EDT Respiratory Rate 25 10/15/2022 3:30 PM EDT Oxygen Saturation 97% 12/09/2023 11:07 AM EDT Inhaled Oxygen Concentration - - Weight 84.4 kg (186 lb) 07/13/2024 10:48 AM EDT Height 165.1 cm (5' 5 ) 07/13/2024 10:48 AM EDT Body Mass Index 30.95 07/13/2024 10:48 AM EDT Plan of Treatment Upcoming Encounters Date Type Department Care Team ([facility] st Contact Info) Description 04/26/2025 11:20 AM EST Office Visit [facility] [address] [place] [phone] Jennifer Ag MD [address] [place] [phone] [email or web address] Health Maintenance Due Date Last Done Comments LIPID PANEL 1945 HEPATITIS C SCREENING 07/16/1963 ZOSTER VACCINES (3 of 3) 12/17/2019 10/22/2019, 11/23 DEPRESSION SCREENING 06/17/2024 06/18/2023 INFLUENZA VACCINE (#1) 2024 , 12/10/2021, 11/29/2020, Additional history exists COVID-19 VACCINE ( season) 2024 11/12/2022, 12/10/2021, 06/06/2021, Additional history exists Adult Td,Tdap Booster 03/05/2025 03/05/2015, 009 TSH LEVEL 07/13/2025 07/13/2024, 06/23, 03/05/2024, Additional history exists PNEUMOCOCCAL VACCINES (50+ years) Completed 02/01/2015, 11/11/2010 RSV VACCINE Completed 01/12/2023 SMOKING STATUS SCREENING (Once After 26 Yrs) Completed 07/13/2024 HEPATITIS A VACCINES Aged Out No long er eligible based on patient's age to complete this topic HIB VACCINES Aged Out No longer eligi ble based on patient's age to complete this topic MENINGOCOCCAL VACCINES (ACWY) Aged Out No longer eligible based on patient's age to complete this topic MENINGOCOCCAL VACCINES (B) Aged Out N o longer eligible based on patient's age to complete this topic Medical Devices Not on file Procedures Procedure Name Priority Date/Time Associated Diagnosis Comments TSH WITH REFLEX Routine 07/06/2024 9:30 AM EDT Acquired hypothyroidism from Last 3 Months or Most Recently Relevant to Health Maintenance Results * TSH with reflex (07/06/2024 9:30 AM EDT) Blood us Jennifer Ag MD LAB BLOOD ORDERABLES Final Res ult [address] [phone] from Last 3 Months or Most Recently Relevant to Health Maintenance Insurance [employer] SUPPLEMENT MEDICARE PART A & B BLUE CROSS MEDEX SUPPLEMENT MEDICARE PART A & B VOZ MEDEX SUPPLEMENT VOZ MEDEX SUPPLEMENT VOZ MEDEX SUPPLEMENT MEDICARE PART A & B VOZ MEDEX SUPPLEMENT VOZ MEDEX SUPPLEMENT MEDICARE PART A & B VOZ MEDEX SUPPLEMENT MEDICARE PART A & B [employer] CR[employer] MEDEX SUPPLEMENT MEDICARE PART A & B Care Teams Communications Superintendent Relationship Specialty Start Date End Date Radha Gonzalez MD PCP - General Internal Medicine 08/15/22 Additional Source Comments The information contained in this document represents components of the legal health record. It is not the complete legal health record.[facility]
--- OUTSIDE RECORDS SUMMARY | 2024-10-25 11:56 | XMS_ITS | Encounter Summary ---
Author Organization [facility] Address [address] [place] [address] Care Team Providers Care Marketing Regional Consultant Name Role Phone Pietro Vázquez MD Primary Care Provider Unavail able Radha Gonzalez MD Primary Care Provider Carrie baires Encounter Details Date Type Department Care Team Description 06/19/2014 Vibrator Operator Report Medical Records [address] [place] [address] Jennifer Ag MD Social History Tobacco Use [...] on filedocumented in this encounter Care Teams Marketing Regional Consultant Relationship Specialty Start Date End Date Pietro Vázquez MD PCP - General 06/15/08 12/23/14 Radha Gonzalez MD PCP - General Internal Medicine 12/24/14 documented as of this encounter
--- OUTSIDE RECORDS SUMMARY | 2024-10-25 11:56 | XMS_ITS | Encounter Summary ---
Author Organization [facility] Address [address] [place] [address] Care Team Providers Care Putty Tinter Maker Name Role Phone Radha Gonzalez MD Primary Care Provider Carrie baires Encounter Details Date Type Department Care Team Description 11/24/2017 Orders Only Medicine/Pediatrics - [address] [phone] Bonnie Ribera PA-C Rib pain on right side Social History Tobacco Use Types Packs/Day Years Used Date Smoking Tobacco: Never Smokeless Tobacco: Never Alcohol Use Standard Drinks/Week Comments Yes 0 (1 standard drink = 0.6 oz pur e alcohol) 5/week Sex Assigned at Date Recorded Not on file documented as of this encounter Plan of Treatment Not on file documented as of this encounter Procedures Procedure Name Priority Date/Time Associated Diagnosis Comments CHG RADEX RIBS UNILATERAL 2 VIEWS Routine 11/16/2017 Rib pain on right side documented in this encounter Results * X-RAY EXAM OF RIBS, ONE SIDE (11/16/2017) Bonnie Ribera PA-C RADIOLOGY documented in this encounter Visit Diagnoses Diagnosis Rib pain on right side Chest pain, unspecified documented in this encounter Care Teams Putty Tinter Maker Relationship Specialty Start Date End Date Radha Gonzalez MD PCP - General Internal Medicine 12/24/14 documented as of this encounter
--- OUTSIDE RECORDS SUMMARY | 2024-10-25 11:56 | XMS_ITS | Encounter Summary ---
Author Organization [facility] Address [address] [place] [address] Care Team Providers Care Astronomy Teacher Name Role Phone Pietro Vázquez MD Primary Care Provider Unavail able Radha Gonzalez MD Primary Care Provider Carrie baires Encounter Details Date Type Department Care Team Description 09/18/2011 Circus Laborer Report Medical Records [address] [place] [address] Jennifer Ag MD Social History Tobacco Use [...] on filedocumented in this encounter Care Teams Astronomy Teacher Relationship Specialty Start Date End Date Pietro Vázquez MD PCP - General 06/15/08 12/23/14 Radha Gonzalez MD PCP - General Internal Medicine 12/24/14 documented as of this encounter
--- OUTSIDE RECORDS SUMMARY | 2024-10-25 11:56 | XMS_ITS | Encounter Summary ---
Author Organization [facility] Address [address] [place] [address] Care Team Providers Care Chainer Name Role Phone Radha Gonzalez MD Primary Care Provider Carrie baires Encounter Details Date Type Department Care Team Description 06/27/2019 Hospital Medical Records [address] [place] [address] Social History Tobacco Use Types Packs/Day Years [...] on filedocumented in this encounter Care Teams Chainer Relationship Specialty Start Date End Date Radha Gonzalez MD PCP - General Internal Medicine 12/24/14 documented as of this encounter
--- OUTSIDE RECORDS SUMMARY | 2024-10-25 11:56 | XMS_ITS | Encounter Summary ---
Author Organization [facility] Address [address] [place] [address] Care Team Providers Care Maintenance Data Analyst Name Role Phone Pietro Vázquez MD Primary Care Provider Unavail able Radha Gonzalez MD Primary Care Provider Carrie baires Encounter Details Date Type Department Care Team Description 07/31/2013 [facility] Medical Records [address] [place] [address] Kole Perera, DO Social History Tobacco Use Types Packs/Day Years [...] on filedocumented in this encounter Care Teams Maintenance Data Analyst Relationship Specialty Start Date End Date Pietro Vázquez MD PCP - General 06/15/08 12/23/14 Radha Gonzalez MD PCP - General Internal Medicine 12/24/14 documented as of this encounter
--- OUTSIDE RECORDS SUMMARY | 2024-10-25 11:56 | XMS_ITS | Encounter Summary ---
Author Organization [facility] Address [address] [place] [address] Care Team Providers Care Tool And Fixture Repairer Name Role Phone Radha Gonzalez MD Primary Care Provider Unavaila ble Reason for Visit * Reason Onset Date Comments refill request 02/21/2019 Encounter Details Date Type Department Care Team Description 02/21/2019 Refill Physiatry - [address] [address] Pasquale Lema DO refill request Social History Tobacco Use Types Packs/Day Years Used Date Smoking Tobacco: Never Smokeless Tobacco: Never Alcohol Use Standard Drinks/Week Comments Yes 0 (1 standard drink = 0.6 oz pur e alcohol) 5/week Sex Assigned at Date Recorded Not on file documented as of this encounter Miscellaneous Notes * Telephone Encounter - Cheyenne Schroeder M.A. - 02/21/2019 8:55 AM EST Patient has refill * Telephone Encounter - Magda Jay - 02/21/2019 8:42 AM EST Patient would like script to be: E-PRESCRIBED/FAXED TO PHARMACY (THE MEDICATION REQUESTED IS ON THE MED LIST ABOVE) LIDOCAINE 5% PATCH PLACE 1 TO 3 PATCHES ONTO THE SKIN EVERY 24 HOURS (12 HOURS ON AND 12 HOURS OFF) Did you check the Pharmacy information above?: YES Patient wants: 90 -day supply Is this a mail order prescription request ? NO If the refill is from a FAXED refill request what is the RX # listed on the fax? N/A Patients current insurance carrier is: [place] / [place] / Product Type: MEDICARE [id number] Insurance ID #: NO CLAIM NUMBER documented in this encounter Plan of Treatment Not on file documented as of this encounter Visit Diagnoses Diagnosis PHN (postherpetic neuralgia) Herpes zoster with other nervous system complications documented in this encounter Care Teams Tool And Fixture Repairer Relationship Specialty Start Date End Date Radha Gonzalez MD PCP - General Internal Medicine 12/24/14 documented as of this encounter
--- OUTSIDE RECORDS SUMMARY | 2024-10-25 11:56 | XMS_ITS | Encounter Summary ---
Author Organization [facility] Address [address] [place] [address] Care Team Providers Care Chair Finisher Name Role Phone Radha Gonzalez MD Primary Care Provider Carrie baires Encounter Details Date Type Department Care Team Description 11/15/2019 [facility] Report Medical Records [address] [place] [address] Citlaly Rivers MD Social History Tobacco Use [...] on filedocumented in this encounter Care Teams Chair Finisher Relationship Specialty Start Date End Date Radha Gonzalez MD PCP - General Internal Medicine 12/24/14 documented as of this encounter
--- OUTSIDE RECORDS SUMMARY | 2024-10-25 11:56 | XMS_ITS | Encounter Summary ---
Author Organization [facility] Address [address] [place] [address] Care Team Providers Care Washing Machine Assembler Name Role Phone Pietro Vázquez MD Primary Care Provider Unavail able Radha Gonzalez MD Primary Care Provider Carrie baires Encounter Details Date Type Department Care Team Description 04/10/2011 [facility] Report Medical Records [address] [place] [address] Jennifer Ag MD Social History Tobacco Use [...] on filedocumented in this encounter Care Teams Washing Machine Assembler Relationship Specialty Start Date End Date Pietro Vázquez MD PCP - General 06/15/08 12/23/14 Radha Gonzalez MD PCP - General Internal Medicine 12/24/14 documented as of this encounter
--- OUTSIDE RECORDS SUMMARY | 2024-10-25 11:56 | XMS_ITS | Encounter Summary ---
Author Organization [facility] Address [address] [place] [address] Care Team Providers Care Preschool Teacher'S Assistant Name Role Phone Pietro Vázquez MD Primary Care Provider Unavail able Radha Gonzalez MD Primary Care Provider Carrie baires Encounter Details Date Type Department Care Team Description 08/01/2013 Hospital Medical Records [address] [place] [address] Hazel Gracia MD Social History Tobacco Use Types Packs/Day [...] on filedocumented in this encounter Care Teams Preschool Teacher'S Assistant Relationship Specialty Start Date End Date Pietro Vázquez MD PCP - General 06/15/08 12/23/14 Radha Gonzalez MD PCP - General Internal Medicine 12/24/14 documented as of this encounter
--- OUTSIDE RECORDS SUMMARY | 2024-10-25 11:56 | XMS_ITS | Encounter Summary ---
Author Organization [facility] Address [address] [place] [address] Care Team Providers Care Global Engineering Manager Name Role Phone Pietro Vázquez MD Primary Care Provider Unavail able Radha Gonzalez MD Primary Care Provider Unavaila ble Reason for Visit * Reason Onset Date Comments TEST RESULTS 06/06/2013 Encounter Details Date Type Department Care Team Description 06/06/2013 Telephone Medicine/Pediatrics - [address] [phone] Pietro Vázquez MD TEST RESULTS Social History Tobacco Use Types Packs/Day Years Used Date Smoking Tobacco: Never Smokeless Tobacco: Never Alcohol Use Standard Drinks/Week Comments Yes 0 (1 standard drink = 0.6 oz pur e alcohol) 5/week Sex Assigned at Date Recorded Not on file documented as of this encounter Miscellaneous Notes * Telephone Encounter - Yuliana HarmonPJagdishNJagdish - 06/06/2013 5:02 PM EDT I need a fax # * Telephone Encounter - Leslie Anglin - 06/06/2013 4:45 PM EDT Alivia calling regarding results for bun and creatnine. Cat scan scheduled Thursday and they are going to cancel it unless someone call and gives them the results. [phone] documented in this encounter Plan of Treatment Not on file documented as of this encounter Visit Diagnoses Not on filedocumented in this encounter Care Teams Global Engineering Manager Relationship Specialty Start Date End Date Pietro Vázquez MD PCP - General 06/15/08 12/23/14 Radha Gonzalez MD PCP - General Internal Medicine 12/24/14 documented as of this encounter
--- OUTSIDE RECORDS SUMMARY | 2024-10-25 11:56 | XMS_ITS | Encounter Summary ---
Author Organization [facility] Address [address] [place] [address] Care Team Providers Care Swing Driver Name Role Phone Radha Gonzalez MD Primary Care Provider Carrie baires Encounter Details Date Type Department Care Team Description 10/01/2017 Pt. Non Urgent Medical Question Medicine/Pediatrics - [address] [phone] Radha Gonzalez MD Social History Tobacco Use Types Packs/Day Years Used Date Smoking Tobacco: Never Smokeless Tobacco: Never Alcohol Use Standard Drinks/Week Comments Yes 0 (1 standard drink = 0.6 oz pur e alcohol) 5/week Sex Assigned at Date Recorded Not on file documented as of this encounter Progress Notes * Yuliana HarmonP.N. - 10/01/2017 4:42 PM EDTFrom: Calvin Tejada To: Radha Gonzalez MD Sent: 10/01/2017 4:27 PM EDT Subject: Blood test review A recent blood test I took at [facility] shows a high red blood cell factor please review and let know if this is something I need to have checked out? documented in this encounter Plan of Treatment Not on file documented as of this encounter Visit Diagnoses Not on filedocumented in this encounter Care Teams Swing Driver Relationship Specialty Start Date End Date Radha Gonzalez MD PCP - General Internal Medicine 12/24/14 documented as of this encounter
--- OUTSIDE RECORDS SUMMARY | 2024-10-25 11:56 | XMS_ITS | Encounter Summary ---
Author Organization [facility] Address [address] [place] [address] Care Team Providers Care Health Information Coder Name Role Phone Pietro Vázquez MD Primary Care Provider Unavail able Radha Gonzalez MD Primary Care Provider Carrie baires Encounter Details Date Type Department Care Team Description 08/02/2010 [address] And Building Decorator Report Medical Records [address] [place] [address] Heri Morin Social History Tobacco Use Types Packs/Day Years [...] on filedocumented in this encounter Care Teams Health Information Coder Relationship Specialty Start Date End Date Pietro Vázquez MD PCP - General 06/15/08 12/23/14 Radha Gonzalez MD PCP - General Internal Medicine 12/24/14 documented as of this encounter
--- OUTSIDE RECORDS SUMMARY | 2024-10-25 11:56 | XMS_ITS | Encounter Summary ---
Author Organization [facility] Address [address] [place] [address] Care Team Providers Care Director Energy Name Role Phone Pietro Vázquez MD Primary Care Provider Unavail able Radha Gonzalez MD Primary Care Provider Carrie baires Encounter Details Date Type Department Care Team Description 09/29/2011 Quality Control Supervisor Report Medical Records [address] [place] [address] Jennifer Ag MD Social History Tobacco Use [...] on filedocumented in this encounter Care Teams Director Energy Relationship Specialty Start Date End Date Pietro Vázquez MD PCP - General 06/15/08 12/23/14 Radha Gonzalez MD PCP - General Internal Medicine 12/24/14 documented as of this encounter
--- OUTSIDE RECORDS SUMMARY | 2024-10-25 11:56 | XMS_ITS | Encounter Summary ---
Author Organization [facility] Address [address] [place] [address] Care Team Providers Care Negative Turner Apprentice Name Role Phone Pietro Vázquez MD Primary Care Provider Unavail able Radha Gonzalez MD Primary Care Provider Unavaila ble Reason for Visit * Reason Onset Date Comments Call From Lab 03/25/2011 faxed results Encounter Details Date Type Department Care Team Description 03/25/2011 Telephone Medicine/Pediatrics - [address] [phone] Pietro Vázquez MD Call From Lab (faxed results) Social History Tobacco Use Types Packs/Day Years Used Date Smoking Tobacco: Never Smokeless Tobacco: Never Alcohol Use Standard Drinks/Week Comments Yes 0 (1 standard drink = 0.6 oz pur e alcohol) 7/week Sex Assigned at Date Recorded Not on file documented as of this encounter Miscellaneous Notes * Telephone Encounter - Lalita Rose M.A. - 03/25/2011 4:40 PM EST This patient's lab results have been faxed to Dr.Eva Ag's office at fax # [phone] documented in this encounter Plan of Treatment Not on file documented as of this encounter Visit Diagnoses Not on filedocumented in this encounter Care Teams Negative Turner Apprentice Relationship Specialty Start Date End Date Pietro Vázquez MD PCP - General 06/15/08 12/23/14 Radha Gonzalez MD PCP - General Internal Medicine 12/24/14 documented as of this encounter
--- OUTSIDE RECORDS SUMMARY | 2024-10-25 11:56 | XMS_ITS | Encounter Summary ---
Author Organization [facility] Address [address] [place] [address] Care Team Providers Care Covering And Lining Supervisor Name Role Phone Pietro Vázquez MD Primary Care Provider Unavail able Radha Gonzalez MD Primary Care Provider Carrie baires Encounter Details Date Type Department Care Team Description 09/17/2013 Pt. Non Urgent Medic al Question Adult Medicine [address] [address] Pietro Vázquez MD Social History Tobacco Use Types Packs/Day Years Used Date Smoking Tobacco: Never Smokeless Tobacco: Never Alcohol Use Standard Drinks/Week Comments Yes 0 (1 standard drink = 0.6 oz pur e alcohol) 5/week Sex Assigned at Date Recorded Not on file documented as of this encounter Progress Notes * Hetal Barroso L.P.N. - 09/19/2013 11:42 AM EDTFrom: Calvin Tejada To: Pietro Vázquez MD Sent: 09/17/2013 11:55 AM EDT Subject: Pantoprazole [facility] said insurance will not pay until they hear from Gurpreet that is ok. I ran out of med today. Please contact [facility] Thant you documented in this encounter Plan of Treatment Not on file documented as of this encounter Visit Diagnoses Not on filedocumented in this encounter Care Teams Covering And Lining Supervisor Relationship Specialty Start Date End Date Pietro Vázquez MD PCP - General 06/15/08 12/23/14 Radha Gonzalez MD PCP - General Internal Medicine 12/24/14 documented as of this encounter
--- OUTSIDE RECORDS SUMMARY | 2024-10-25 11:56 | XMS_ITS | Encounter Summary ---
Author Organization [facility] Address [address] [place] [address] Care Team Providers Care Automotive Upholsterer Name Role Phone Pietro Vázquez MD Primary Care Provider Unavail able Radha Gonzalez MD Primary Care Provider Carrie baires Encounter Details Date Type Department Care Team Description 03/12/2010 Executive Assistant To General Counsel Report Medical Records [address] [place] [address] Jennifer Ag MD Social History Tobacco Use [...] on filedocumented in this encounter Care Teams Automotive Upholsterer Relationship Specialty Start Date End Date Pietro Vázquez MD PCP - General 06/15/08 12/23/14 Radha Gonzalez MD PCP - General Internal Medicine 12/24/14 documented as of this encounter
--- OUTSIDE RECORDS SUMMARY | 2024-10-25 11:57 | XMS_ITS | Encounter Summary ---
Author Organization [facility] Address [address] [place] [address] Care Team Providers Care Lockstitch Zipper Setter Name Role Phone Pietro Vázquez MD Primary Care Provider Unavail able Radha Gonzalez MD Primary Care Provider Carrie baires Encounter Details Date Type Department Care Team Description 02/01/2013 Meter Repair Shop Supervisor Report Medical Records [address] [place] [address] Jennifer Ag MD Social History Tobacco Use [...] on filedocumented in this encounter Care Teams Lockstitch Zipper Setter Relationship Specialty Start Date End Date Pietro Vázquez MD PCP - General 06/15/08 12/23/14 Radha Gonzalez MD PCP - General Internal Medicine 12/24/14 documented as of this encounter
--- OUTSIDE RECORDS SUMMARY | 2024-10-25 11:57 | XMS_ITS | Encounter Summary ---
Author Organization [facility] Address [address] [place] [address] Care Team Providers Care Compounder Sterile Products Name Role Phone Radha Gonzalez MD Primary Care Provider Carrie baires Encounter Details Date Type Department Care Team Description 06/04/2015 Weft Straightener Report Medical Records [address] [place] [address] Jennifer Ag MD Social History Tobacco Use [...] on filedocumented in this encounter Care Teams Compounder Sterile Products Relationship Specialty Start Date End Date Radha Gonzalez MD PCP - General Internal Medicine 12/24/14 documented as of this encounter
== END 2024-10-25 11:13 | disposition home or self-care (01) ==
LOC: HO.HMCFM 10:24
PROVIDERS: PCP Internal Medicine; Visit Provider Internal Medicine
DX: M54.17 Radiculopathy, lumbosacral region (principal); R29.898 Other symptoms and signs involving the musculoskeletal system

== ENCOUNTER → 2024-11-12 15:51 | Outpatient (BNV) | payer MEDICARE, SELFPAY | PROVIDERS: PCP Internal Medicine; Visit Provider Specialist | DX: M47.26 Other spondylosis with radiculopathy, lumbar region (principal); M51.369 Other intervertebral disc degeneration, lumbar region without mention of lumbar back pain or lower extremity pain; M48.061 Spinal stenosis, lumbar region without neurogenic claudication | CPT/HCPCS: 72158 ==

== ENCOUNTER 2024-11-12 15:52 | Outpatient (REF) | payer MEDICARE, SELFPAY ==
--- NOTE | ~2024-11-12 | MR_ITS ---
CLINICAL HISTORY: M54.17 - Radiculopathy, lumbosacral region MR lumbar spine with and without gadolinium Comparison: None Findings: Lumbar alignment is maintained. Vertebral body height is maintained. No bone marrow edema or bone lesion. Degenerative disc disease throughout the lumbar spine. Distal conus terminates at T11-12. T12-L1 and L1-2 demonstrate mild spondylotic disc bulges and ligamentum flavum thickening at L1-2. No significant stenosis. At L2-3 spondylotic disc bulge and facet arthropathy and previous left hemilaminectomy. There is enhancement in the laminectomy defect also involving adjacent left paramidline soft tissues. There is mild canal and neural foraminal stenosis bilaterally. At L3-4 spondylotic disc bulge and facet arthropathy with mild canal and lateral recess stenosis bilaterally. No significant foraminal stenosis. At L4-5 previous bilateral laminectomies with mild spondylotic disc bulge and facet arthropathy with mild stenosis of the neural foramina. At L5-S1 mild spondylotic disc bulge with prominent facet arthropathy with mild stenosis of the lateral recesses bilaterally. Postcontrast administration there is enhancement in the laminectomy defects at L2-3 and in left posterior soft tissues. No loculated fluid collection. IMPRESSION: 1. Previous left hemilaminectomy at L2-3 and bilateral laminectomies at L4-5. 2. Multilevel degenerative changes and spondylotic disc bulges and facet arthropathy with stenosis as described. 3. No focal disc herniation. 4. Enhancement at the L2-3 left hemilaminectomy defect in in left sided soft tissues with no loculated fluid collection. Fluid collection This document has been electronically signed by: Roxi Joseph MD on 11/12/2024 18:02:43
--- OUTSIDE RECORDS SUMMARY | 2024-11-12 15:56 | XMS_ITS | Clinical Summary ---
Author Organization [facility] Address [address] [place] [address] Care Team Providers Care Coil Builder Name Role Phone Radha Bansal MD Primary Care Provider [phone] Allergies Active Allergy Reactions Criticality Noted Date [...] Description 09/12/2024 11:00 AM EDT Clinical Support [facility] [address] [place] [address] Navi Horton MD Czaplicki, Allison, [...] Description 03/06/2025 11:15 AM EST Office Visit [facility] [place] [address] [facility] [address], [place] [address] Navi Horton MD [address] [facility] [address] [facility] [address] Health Maintenance Due Date Last Done Comments Advance Care Planning 1945 Hepatitis C Virus Screening 1945 Zoster (Shingles) Vaccine (2 of 2) 12/17/2019 10/22/2019, 12/09/2011 Influenza Vaccine 09/23/2024 11/12/2022, , 11/29/2020, Additional history exists COVID-19 Vaccine ( season) 2024 11/12/2022, 06/06/2021, 11/24/2020, Additional history exists DTaP/Tdap/Td Vaccines (3 - [...] Months Insurance MEDICARE PART A & B [facility] Care Teams Coil Builder Relationship Specialty Start Date End Date Radha Bansal MD [address] [place] [address] [place] [id number] PCP - General
--- OUTSIDE RECORDS SUMMARY | 2024-11-12 15:56 | XMS_ITS | Encounter Summary ---
Author Organization [facility] Address [address] [facility] [address] [place] [address] Phone Care Team Providers Care Environmental Compliance Officer Name Role Phone Radha Gonzalez MD Primary Care Provider [phone] Encounter Details Date Type Department Care Team (Late st Contact Info) Description 10/15/2022 Procedure Pass [facility] [address] [place] [id number] Social History Tobacco Use Types Packs/Day Years [...] 11:20 AM EST Office Visit [facility] [address] [place] [phone] Jennifer Ag MD [address] [place] [address] [email or web address] documented as of this encounter Visit Diagnoses Not on filedocumented in this encounter Care Teams Environmental Compliance Officer Relationship Specialty Start Date End Date Radha Gonzalez MD PCP - General Internal Medicine 08/15/22 documented as of this encounter Additional Source Comments The information contained in this document represents components of the legal health record. It is not the complete legal health record.[facility]
--- OUTSIDE RECORDS SUMMARY | 2024-11-12 15:56 | XMS_ITS | Encounter Summary ---
Author Organization [facility] Address [address] [address] [place] [address] Phone Care Team Providers Care Executive Assistant To General Counsel Name Role Phone Radha Gonzalez MD Primary Care Provider [phone] Encounter Details Date Type Department Care Team (Late Contact Info) Description 10/09/2022 Procedure Pass [facility] [address] [place] [address] Social History Tobacco Use Types Packs/Day Years [...] AM EST Office Visit [facility] [address] [place] [address] Jennifer Ag MD [address] [place] [address] [email or web address] documented as of this encounter Visit Diagnoses Not on filedocumented in this encounter Care Teams Executive Assistant To General Counsel Relationship Specialty Start Date End Date Radha Gonzalez MD PCP - General Internal Medicine 08/15/22 documented as of this encounter Additional Source Comments The information contained in this document represents components of the legal health record. It is not the complete legal health record.[facility]
--- OUTSIDE RECORDS SUMMARY | 2024-11-12 15:56 | XMS_ITS | Clinical Summary ---
Author Organization [facility] Address [address] [place] [address] Phone Care Team Providers Care Assistant Principal Name Role Phone Radha Gonzalez MD Primary Care Provider [phone] Allergies Active Allergy Reactions Criticality Noted Date [...] TWICE DAILY, # 12 Gm, [id number], [facility], cm, 05/02/21 11:36:00 EST, Height, 83.5, [...] prevention. -[place] [facility] & Plan (06/07/2023 8:46 PM EDT): [...] prevention. Would repeat DEXA after 01/12[place]2025 [place] [facility] [place]. Assessment & Plan (02/20/2023 4:39 PM [...] D level and will discuss further management. Social History Tobacco Use Types Packs/Day Years [...] 11:20 AM EST Office Visit [facility] [address] [place] [address] [place] [address] Jennifer Ag MD [address] [place] [phone] [email or web address] Health Maintenance Due Date Last Done Comments [...] MD LAB BLOOD ORDERABLES Final Res ult [facility] [address] [place] [address] from Last 3 Months or Most Recently Relevant to Health Maintenance Insurance [employer] SUPPLEMENT MEDICARE PART A & B [employer] SUPPLEMENT MEDICARE PART A & B [employer] MEDEX SUPPLEMENT [employer] MEDEX SUPPLEMENT [employer] SUPPLEMENT MEDICARE PART A & B [employer] MEDEX SUPPLEMENT [employer] MEDEX SUPPLEMENT MEDICARE PART A & B [employer] MEDEX SUPPLEMENT MEDICARE PART A & B [employer] SUPPLEMENT MEDICARE PART A & B Care Teams Assistant Principal Relationship Specialty Start Date End Date Radha Gonzalez MD PCP - General Internal Medicine 08/15/22 Additional Source Comments The information contained in this document represents components of the legal health record. It is not the complete legal health record.[facility]
== END 2024-11-12 15:53 | disposition home or self-care (01) ==
LOC: HO.MRI 15:52
PROVIDERS: PCP Internal Medicine; Visit Provider Internal Medicine
DX: M54.17 Radiculopathy, lumbosacral region (principal); Z98.890 Other specified postprocedural states
CPT/HCPCS: 72158; A9585

== ENCOUNTER 2024-12-27 11:29 | Outpatient (AMB) | payer MEDICARE, SELFPAY ==
--- NOTE | 2024-12-27 11:34 | MHC.PC.OV ---
Vital Signs 12/27/24 11:45 Height 5 ft 8 in Weight 184 lb 4 oz BMI 28.0 BP 118/57 L Blood Pressure Location Rt brachial Position Sitting Respiration 16 Pulse 67 Pulse Source Pulse Oximeter Temp 98.1 F Temp Source Oral Pulse Oximetry (%) 96 Oxygen Delivery Method Room Air Intake Visit Reasons: Pain in both legs Intake Note: patient here c/o pain in both legs Rivet Hole Machine Operator Required: No Allergies clindamycin Allergy (Unknown, Verified 12/27/24 11:38) Rash levofloxacin (From Levaquin) Allergy (Unknown, Verified 12/27/24 11:38) Unknown Tobacco use date assessed: 12/27/24 Fall risk assessment: No Falls in past year Last assessed Fall Risk: 12/27/24 Dental Screening Dental Screen Date: 12/27/24 Did you have a dental visit in the last 12 months?: Yes Did you have a dental problem in the last 6 months where you did not have access to dental care?: No Was dental information given to patient?: Patient has dentist HPI HPI Comments History of Present Illness Details The patient is a 77 year old male with a past medical history of asthma, hypothyroid, depression, chronic back pain, colon adenocarcinoma, hypogonadism, anxiety, asthma and DAVIN presenting for follow up Severe increase in bilateral leg pain, heaviness, difficulty sleeping, walking, sitting since end of summer. Worse pain in mid to lower buttock radiates to anterior lateral thigh anterior leg and heels. lumbar back pain improved following L2L3 laminotomy surgery Dr Garcia in July. Continues follow up with Dr Lema. 12/10-caudal epidural. 12/16 saw PT. He has another appt with Dr Garcia next Thursday -01/12/25. He will see spine at [facility]. Using diclofenac cream MRI was performed after his visit last month 1. Previous left hemilaminectomy at L2-3 and bilateral laminectomies at L4-5. 2. Multilevel degenerative changes and spondylotic disc bulges and facet arthropathy with stenosis as described. 3. No focal disc herniation. 4. Enhancement at the L2-3 left hemilaminectomy defect in in left sided soft tissues with no loculated fluid collection. Fluid collection Chronic pain-thoracic and flank. see above. He is following with physiatry, Dr Lema and has received injections Had MRI 2020. No new pathology. Kidney imaging (-). Continues to c/o chronic right flank, back and at times rib pain. History of wedge compression fracture T9/T10 07/2011, lumbar laminectomy L4-L5 2013, history of lumbar laminectomy for spinal cord decompression ? 08/06/2017, SI joint dysfunction, vertebral compression fracture 01/22/2018, neurogenic claudications 12/2017. In 2021 was removing snow from the roof-imaging with mildly displaced right posterior 11th rib fracutre and nondisplaced fractures in the right transverse processes of T12 and L1 Asthma: Frequent bronchitis. Follows with Dr Truogn at [facility]. He has been reschedule for his barium swallow multiple times due to machine malfunction. Had COVID Feb 2023 requiring hospitalization. Required oxygen for ~1 month. Endocrine: Is following with Dr Nassar for hypogonadism, hypothyroid, vitamin D deficiency and osteopenia. Has had higher K on some of her recent labs Anxiety/depression-Follows with Dr Gracia. Stable on lexparo and xanax GI: Increased, almost nightly reflux despite daily PPI therapy. This is worsened over past year. He has chronic constipation, is on miralax, senna and prn dulcolax but also too feels like this has worsened in the past year. Vaccinations UTD per patient at pharmacy ROS see HPI PHYSICAL EXAM: GENERAL: Alert and oriented x 3. NAD EYES: EOMI. Anicteric. HENT: Moist mucous membranes. No scleral icterus. No cervical lymphadenopathy. LUNGS: Clear to auscultation bilaterally. CARDIOVASCULAR: Regular rate and rhythm. No murmur. No JVD. ABDOMEN: Soft, non-tender +bs MSK: Tender SI joints. Weakened dorsiflexion b/l EXTREMITIES: No edema. Non-tender. SKIN: No rashes or lesions. Warm. NEUROLOGIC: Weak left dorsiflexion, plantar flexion PSYCHIATRIC: Cooperative. Appropriate mood and affect [facility] Medical History Cataracts, bilateral TMJ syndrome Sore throat Rib fracture Occipital headache Neuropathy Internal hernia Hypothyroidism Hemothorax GERD (gastroesophageal reflux disease) Depression COVID-19 Cough Chronic back pain Carcinoma of sigmoid colon Basal cell carcinoma Asthma Androgen deficiency Allergic rhinitis Abdominal pain Surgical History Hx of colonoscopy Family History Mother Anxiety Dementia Father Chronic obstructive pulmonary disease Brother Chronic obstructive pulmonary disease Brother HTN (hypertension) Maternal Grandmother Heart attack Other FH: mental illness Social History Housing: House Alcohol intake: former Patient Tobacco Use Status: Never used Tobacco e-Cigarette/Vaping Use: Never Used Second Hand Smoke Exposure: Yes service: Yes Current occupational status: retired Current occupational exposures/hazards: No Cognitive needs: No Hearing needs: No Vision needs: No Questionnaire Thrive Questionnaire Date Thrive assessed: 07/19/24 I am a: Patient What is your living situation today?: I have a steady place to live Within the past 12 months, did the food you bought not last and you didn't have the money to get more?: Never true Within the past 12 months, did you worry whether your food would run out before you got money to buy more?: Never true Do you have trouble paying for medicines?: No Do you have trouble getting transportation to medical appointments?: No Do you have trouble paying your heating and electricity bill?: No Do you have trouble taking care of your child, family member or friend?: No Do you have trouble with day-to-day activities such as bathing, preparing meals, shopping, managing finances, etc.?: No Are you currently unemployed and looking for a job?: No Are you interested in more education?: No Please select the resources that you would like help with: None Currently or been in a relationship where the following occur: I choose not to answer THRIVE Score: 0 KIERSTEN-7 AMB Questionnaire KIERSTEN-7 Date KIERSTEN - 7 assessed: 07/14/23 Source: Developed by Drs. Dhruv Spencer, Olivia Rodríguez, Rusty Francisco and colleagues, with an educational from [employer]. Physical exam (Primary Care) Vital Signs: Last Vital Signs Temp 98.1 F 12/27/24 11:45 Pulse 67 12/27/24 11:45 Resp 16 12/27/24 11:45 BP 118/57 L 12/27/24 11:45 Pulse Ox 96 12/27/24 11:45 Oxygen Delivery Method Room Air 12/27/24 11:45 BMI result Body Mass Index 28.0 Tobacco/Smoking Status: Tobacco use Status Tobacco use date assessed 12/27/24 12/27/24 11:48 Patient Tobacco Use Status Never used Tobacco 12/27/24 11:34 e-Cigarette/Vaping Use Never Used 12/27/24 11:34 Thrive Assessment: Date of Thrive Assessment Date Thrive assessed 07/19/24 12/27/24 11:34 Currently or been in a relationship where the following occur: I choose not to answer Coding Level of Care Code Est Pt Level 4 (18613) Complex EM visit Add On G2211 Diagnoses Lumbosacral radiculopathy at L4 M54.17 Lumbosacral radiculopathy at L5 M54.17 Sacral pain M53.3 Assessment & Plan Assessment & Plan (1) Lumbosacral radiculopathy at L4: Code(s): M54.17 - Radiculopathy, lumbosacral region Category: Medical (2) Lumbosacral radiculopathy at L5: Code(s): M54.17 - Radiculopathy, lumbosacral region Category: Medical (3) Sacral pain: Code(s): M53.3 - Sacrococcygeal disorders, not elsewhere classified Category: Medical Plan 79 year old male for follow up with increased buttock and lower extremity pain Patient may use oxycodone a little more liberally given failure of other modalities to help pain Switch from gabapentin to lyrica. Continue tylneol. He has follow up schedule. May benefit from sacral/pelvis MRI Orders: Orders MR pelvis wo/w con Today M53.3 - Sacrococcygeal disorders, not elsewhere classified, M54.17 - Radiculopathy, lumbosacral region, R29.898 - Other symptoms and signs involving the musculoskeletal system Medications: New pregabalin (Lyrica) 150 mg PO BID 60 caps 3RF Changed From oxycodone Partial Fill upon patient request. 5 mg PO Q8H PRN 30 tabs 0RF pain M54.17 - Radiculopathy, lumbosacral region To oxycodone Partial Fill upon patient request. 5 mg PO Q6H PRN 60 tabs 0RF pain 30 days M54.17 - Radiculopathy, lumbosacral region
[2024-12-27 11:45] VITALS: BP 118/57; PULSE 67; RESP 16; TEMP 36.7; O2SAT 96; BMI 28.0
--- OUTSIDE RECORDS SUMMARY | 2024-12-27 14:09 | XMS_ITS | Clinical Summary ---
Author Organization [facility] Address [address] [place] [address] Phone Care Team Providers Care Transportation Design Engineer Name Role Phone Radha Gonzalez MD Primary [...] TWICE DAILY, # 12 Gm, [id number], 168, cm, 05/02/21 11:36:00 EST, Height, 83.5, [...] -Would repeat DEXA after 01/12/[address] [facility]. Assessment & Plan (06/07/2023 8:46 PM EDT): [...] prevention. Would repeat DEXA after 01/12/2025 at [facility]. Assessment & Plan (02/20/2023 4:39 PM [...] 11:20 AM EST Office Visit [facility] [address] [place] [address] [place] [address] Jennifer Ag MD [address] [place] [address] [email or web address] Health Maintenance Due Date Last Done Comments [...] Blood us Jennifer Ag MD LAB BLOOD BKR ORDERABLES Final Result [facility] [address] [place] [address] from Last 3 Months or Most Recently Relevant to Health Maintenance Insurance [employer] SUPPLEMENT MEDICARE PART A & B [employer] SUPPLEMENT MEDICARE PART A & B [employer] MEDEX SUPPLEMENT [employer] MEDEX SUPPLEMENT [employer] MEDEX SUPPLEMENT MEDICARE PART A & B [employer] MEDEX SUPPLEMENT [employer] MEDEX SUPPLEMENT MEDICARE PART A & B [employer] MEDEX SUPPLEMENT MEDICARE PART A & B [employer] CROSS MEDEX SUPPLEMENT MEDICARE PART A & B Care Teams Transportation Design Engineer Relationship Specialty Start Date End Date Radha Gonzalez MD PCP - General Internal Medicine 08/15/22 Additional Source Comments The information contained in this document represents components of the legal health record. It is not the complete legal health record.[facility]
--- OUTSIDE RECORDS SUMMARY | 2024-12-27 14:09 | XMS_ITS | Clinical Summary ---
Author Organization [facility] Address [address] [place] [address] Care Team Providers Care Graduate School Dean Name Role Phone Radha Banasl MD Primary Care Provider [phone] Allergies Active Allergy Reactions Criticality Noted Date [...] joint disorder 07/20/2008 Overview (09/12/2024): IMO update Immunizations Immunization Administration Dates Next Due H1N1 [...] 09/12/2024 10:59 AM EDT Plan of Treatment Health Maintenance Due Date Last Done Comments Advance Care Planning 1945 Hepatitis C Virus Screening 1945 Zoster (Shingles) Vaccine (2 of 2) 12/17/2019 10/22/2019, 12/09/2011 Influenza Vaccine 09/23/2024 11/12/2022, , 11/29/2020, Additional history exists COVID-19 Vaccine ( season) 2024 11/12/2022, 06/06/2021, 11/24/2020, Additional history exists DTaP/Tdap/Td Vaccines (3 - Td or Tdap) 03/05/2025 03/05/2015, 07/20/2008 Pneumococcal Vaccines 50+ Completed 02/01/2015, RSV Vaccine 50 years and older and Patients Completed 01/12/2023 Hepatitis B Vaccines Aged Out No long er eligible based on patient's age to complete this topic Insurance MEDICARE PART A & B [facility] Care Teams Graduate School Dean Relationship Specialty Start Date End Date Radha Bansal MD [address] [place] [address] [place] [phone] PCP - General
--- OUTSIDE RECORDS SUMMARY | 2024-12-27 14:09 | XMS_ITS | Encounter Summary ---
Author Organization [facility] Address [address] [place] [address] Phone Care Team Providers Care Switchboard Wire Worker Helper Name Role Phone Radha Gonzalez MD Primary Care Provider + [phone] Encounter Details Date Type Department Care Team (Late Contact Info) Description 10/09/2022 Procedure Pass [facility] [address] [place] [address] Social History Tobacco Use Types Packs/Day Years [...] AM EST Office Visit [facility] [address] [place] [address] Jennifer Ag MD [address] [place] [address] [email or web address] documented as of this encounter Visit Diagnoses Not on filedocumented in this encounter Care Teams Switchboard Wire Worker Helper Relationship Specialty Start Date End Date Radha Gonzalez MD PCP - General Internal Medicine 08/15/22 documented as of this encounter Additional Source Comments The information contained in this document represents components of the legal health record. It is not the complete legal health record.[facility]
--- OUTSIDE RECORDS SUMMARY | 2024-12-27 14:09 | XMS_ITS | Encounter Summary ---
Author Organization [facility] Address [address] [place] [address] Phone Care Team Providers Care Lens Assistant Name Role Phone Radha Gonzalez MD Primary Care Provider + [phone] Encounter Details Date Type Department Care Team (Late st Contact Info) Description 10/15/2022 Procedure Pass [facility] [address] [place] [phone] Social History Tobacco Use Types Packs/Day Years [...] AM EST Office Visit [facility] [address] [place] [address] Jennifer Ag MD [address] [place] [address] [email or web address] documented as of this encounter Visit Diagnoses Not on filedocumented in this encounter Care Teams Lens Assistant Relationship Specialty Start Date End Date Radha Gonzalez MD PCP - General Internal Medicine 08/15/22 documented as of this encounter Additional Source Comments The information contained in this document represents components of the legal health record. It is not the complete legal health record.[facility]
== END 2024-12-27 12:06 | disposition home or self-care (01) ==
LOC: HO.HMCFM 11:29
PROVIDERS: PCP Internal Medicine; Visit Provider Internal Medicine
DX: M54.17 Radiculopathy, lumbosacral region (principal); M53.3 Sacrococcygeal disorders, not elsewhere classified

== ENCOUNTER → 2024-12-27 11:29 | Outpatient (BNVA) | payer MEDICARE, SELFPAY | PROVIDERS: PCP Internal Medicine; Visit Provider Internal Medicine | DX: M54.17 Radiculopathy, lumbosacral region (principal); M53.3 Sacrococcygeal disorders, not elsewhere classified; G89.29 Other chronic pain; M54.6 Pain in thoracic spine; R10.A0 Flank pain, unspecified side; J45.909 Unspecified asthma, uncomplicated; E29.1 Testicular hypofunction; E03.9 Hypothyroidism, unspecified; E55.9 Vitamin D deficiency, unspecified; M85.80 Other specified disorders of bone density and structure, unspecified site; F41.8 Other specified anxiety disorders; G47.33 Obstructive sleep apnea (adult) (pediatric); Z79.891 Long term (current) use of opiate analgesic; Z85.038 Personal history of other malignant neoplasm of large intestine | CPT/HCPCS: 99212 ==

== ENCOUNTER 2024-12-30 10:16 | Outpatient (AMB) | payer MEDICARE, SELFPAY ==
[2024-12-30 10:51] VITALS: BMI 28.3
--- NOTE | 2024-12-30 10:51 | A.SPINEOV_ITS ---
Vital Signs 12/30/24 10:51 Height 5 ft 8 in Weight 186 lb BMI 28.3 Intake Visit Reasons: LBP Intake Note: Mr. Tjeada is here today c/o low back pain. Cruise Consultant Required: No Allergies clindamycin Allergy (Severe, Verified 12/30/24 10:52) Rash levofloxacin (From Levaquin) Allergy (Mild, Verified 12/30/24 10:52) Rash Physical Exam Vital Signs: BMI result Body Mass Index 28.3 Assessment & Plan Assessment & Plan (1) Lumbosacral radiculopathy: Code(s): M54.17 - Radiculopathy, lumbosacral region Category: Medical Plan Dear Dr Gonzalez, Thank you for referring Mr tejada to our office today. He is a very nice 79-year-old gentleman who underwent previous L3-[address] Alvarez in 2011, subsequently just underwent L2-[address] Garcia at [facility] for leg pain. Unfortunately postoperatively the leg pain did not go away. It radiates from his medial thighs down into his medial calf region into his feet. It is aggravated with standing and walking but he can have it at any time. He was told by his team at [facility] just to give it more time but he has been frustrated with his quality of life. He came to see us for a 2nd opinion. PMH: GERD hypothyroidism, BPH, depression anxiety low testosterone, asthma, spinal surgery, small bowel obstruction, sigmoid resection 2010 Social hx: He does not smoke, drink use any recreational drugs Medications: Please see the TiVo list Allergies: Clindamycin and levofloxacin Physical exam: Awake alert oriented no acute distress, strength and reflexes are normal Imaging review: Lumbar MRI done at [facility] in October reviewed by Dr. Callejas and myself reveals postsurgical changes at L2-3 with adequate decompression of the spinal canal. L3-5 also has large laminectomy defect with no evidence of residual central canal stenosis. We compared this to his preoperative study done in July, and there has been significant improvement in the preoperative stenosis. Impression: 79-year-old gentleman presents for evaluation of persistent bilateral lower extremity pain with walking after he recently had L2-[address] done with Dr. Garcia. The imaging done here at [facility] shows that the stenosis he had before surgery is completely gone in the spinal canal is widely patent. Dr. Callejas and I both reviewed the MRI or cells. There is no indication for any surgery. One of 2 things is going on. The 1st is possible that he is just in the small group of patients that do not improve after spinal surgery. In that situation, sometimes spinal cord stimulators can be helpful. Secondly, this could be a different diagnosis altogether, possibly something with a peripheral nerve or vascular situation. The patient is due to follow up with Dr. Garcia early next week. All these things can be reviewed with him. From our end of things however, the surgery was successful and we have no indication for surgery. Thank you for allowing us to care for your patient. The total time spent with this visit with this patient was 45 minutes reviewing history, physical exam, lumbar imaging review, and implementation of treatment plan or further diagnostic testing Dionte Callejas MD,PhD [facility] Coding Level of Care Code New Pt Level 4 (98403) Diagnoses Lumbosacral radiculopathy M54.17
--- OUTSIDE RECORDS SUMMARY | 2024-12-30 12:06 | XMS_ITS | Clinical Summary ---
Author Organization [facility] Address [address] [place] [address] Phone Care Team Providers Care Ink Maker Name Role Phone Radha Gonzalez MD [...] TWICE DAILY, # 12 Gm[id number], 168, cm, 05/02/21 11:36:00 EST, Height, 83.5, [...] prevention. -Would repeat DEXA after 01/12/2025 at [facility]. Assessment & Plan (06/07/2023 8:46 PM EDT): [...] prevention. Would repeat DEX[place] after [place]12[place]20[place] [facility]. Assessment & Plan (02/20/2023 4:39 PM [...] 11:20 AM EST Office Visit [facility] [address] [place] [address] [place] [address] Jennifer Ag MD [address] [place] [phone] [email or web address] Maintenance Due Date Last Done Comments [...] on patient's age to complete this topic IPV VACCINES Aged Out No longer eligi ble [...] with reflex (07/06/2024 9:30 AM EDT) Blood Jennifer Ag MD LAB BLOOD BKR ORDERABLES Final Result [address] [address] from Last 3 Months or Most Recently Relevant to Health Maintenance Insurance [employer] SUPPLEMENT MEDICARE PART A & B [employer] SUPPLEMENT MEDICARE PART A & B [employer] SUPPLEMENT [employer] SUPPLEMENT [employer] SUPPLEMENT MEDICARE PART A & B [employer] SUPPLEMENT [employer] SUPPLEMENT MEDICARE PART A & B [employer] SUPPLEMENT MEDICARE PART A & B [employer]EX SUPPLEMENT MEDICARE PART A & B Care Teams Ink Maker Relationship Specialty Start Date End Date Radha Gonzalez MD PCP - General Internal Medicine 08/15/22 Additional Source Comments The information contained in this document represents components of the legal health record. It is not the complete legal health record.[facility]
--- OUTSIDE RECORDS SUMMARY | 2024-12-30 12:06 | XMS_ITS | Clinical Summary ---
Author Organization [facility] Address [address] [place] [address] Care Team Providers Care Director Of Accreditation Name Role Phone Radha Bansal MD Primary Care Provider [phone] Allergies Active Allergy Reactions Criticality Noted Date [...] topic Insurance MEDICARE PART A & B [facility] Care Teams Director Of Accreditation Relationship Specialty Start Date End Date Radha Bansal MD [address] [place] [address] [place] [phone] PCP - General
--- OUTSIDE RECORDS SUMMARY | 2024-12-30 12:06 | XMS_ITS | Encounter Summary ---
Author Organization [facility] Address [address] [place] [address] Phone Care Team Providers Care Clinical Research Scientist Name Role Phone Radha Gonzalez MD Primary Care Provider + [phone] Encounter Details Date Type Department Care Team (Late Contact Info) Description 10/09/2022 Procedure Pass [facility] [address] [place] [address] Social History Tobacco Use Types Packs/Day Years [...] AM EST Office Visit [facility] [address] [place] [address] Jennifer Ag MD [address] [place] [phone] [email or web address] documented as of this encounter Visit Diagnoses Not on filedocumented in this encounter Care Teams Clinical Research Scientist Relationship Specialty Start Date End Date Radha Gonzalez MD PCP - General Internal Medicine 08/15/22 documented as of this encounter Additional Source Comments The information contained in this document represents components of the legal health record. It is not the complete legal health record.[facility]
--- OUTSIDE RECORDS SUMMARY | 2024-12-30 12:06 | XMS_ITS | Encounter Summary ---
Author Organization [facility] Address [address] [place] [phone] Phone Care Team Providers Care Electrical Unit Rebuilder Name Role Phone Radha Gonzalez MD Primary Care Provider + [phone] Encounter Details Date Type Department Care Team (Late st Contact Info) Description 10/15/2022 Procedure Pass [facility] Stitcher [facility] [address] [place] [phone] Social History Tobacco Use Types Packs/Day Years [...] AM EST Office Visit [facility] [address] [place] [address] Jennifer Ag MD [address] [place] [address] [email or web address] documented as of this encounter Visit Diagnoses Not on filedocumented in this encounter Care Teams Electrical Unit Rebuilder Relationship Specialty Start Date End Date Radha Gonzalez MD PCP - General Internal Medicine 08/15/22 documented as of this encounter Additional Source Comments The information contained in this document represents components of the legal health record. It is not the complete legal health record.[facility]
== END 2024-12-30 12:12 | disposition home or self-care (01) ==
LOC: HO.HNS 10:17
PROVIDERS: PCP Internal Medicine; Referring Provider Internal Medicine; Visit Provider Physician Assistant
DX: M54.17 Radiculopathy, lumbosacral region (principal)
CPT/HCPCS: 99204

== ENCOUNTER → 2024-12-30 10:16 | Outpatient (BNVA) | payer MEDICARE, SELFPAY | PROVIDERS: PCP Internal Medicine; Referring Provider Internal Medicine; Visit Provider Physician Assistant | DX: M54.17 Radiculopathy, lumbosacral region (principal) | CPT/HCPCS: 99202 ==

== ENCOUNTER 2025-01-24 09:37 | Outpatient (AMB) | payer MEDICARE, SELFPAY ==
--- NOTE | 2025-01-24 09:41 | A.OFFPC_ITS ---
Vital Signs 01/24/25 09:43 Height 5 ft 8 in Weight 188 lb 2 oz BMI 28.6 BP 122/72 Blood Pressure Location Lt brachial Position Sitting Respiration 12 Pulse 64 Pulse Source Pulse Oximeter Temp 97.9 F Temp Source Oral Pulse Oximetry (%) 97 Oxygen Delivery Method Room Air Intake Visit Reasons: f/up back Intake Note: Follow up [employer] Teacher Required: No Allergies clindamycin Allergy (Severe, Verified 01/24/25 09:44) Rash levofloxacin (From Levaquin) Allergy (Mild, Verified 01/24/25 09:44) Rash Tobacco use date assessed: 12/27/24 Dental Screening Dental Screen Date: 12/27/24 HPI HPI Comments History of Present Illness Details The patient is a 79 year old male with a past medical history of asthma, hypothyroid, depression, chronic back pain, colon adenocarcinoma, hypogonadism, anxiety, asthma and DAVIN presenting for follow up Severe increase in bilateral leg pain, heaviness, difficulty sleeping, walking, sitting since end of summer. Worse pain in mid to lower buttock radiates to anterior lateral thigh anterior leg and heels. lumbar back pain improved following L2L3 laminotomy surgery Dr Garcia in July. Continues follow up with Dr Lema. 12/10-caudal epidural. 12/[address] Garcia, [facility]. Surgery look ed successful no further surgery indicated. Using diclofenac cream. Stopped oxycodone -he feared his body was becoming accustomed to it. MRI pelvis/sacrum this Thursday. Intolerant to gabapentin. Intolerant to Lyrica. Would like to trial jounarvx MRI was performed after his visit last month 1. Previous left hemilaminectomy at L2-3 and bilateral laminectomies at L4-5. 2. Multilevel degenerative changes and s pondylotic disc bulges and facet arthropathy with stenosis as described. 3. No focal disc herniation. 4. Enhancement at the L2-3 left hemilami nectomy defect in in left sided soft tissues with no loculated fluid collection. Fluid collection Chronic pain-thoracic and flank. see above. He is following with physiatry, Dr Lema and has received injections Had MRI 2020. No new pathology. Kidney imaging (-). Continues to c/o chronic right flank, back and at times rib pain. History of wedge compression fracture T9/T10 07/2011, lumbar laminectomy L4-L5 2013, history of lumbar laminectomy for spinal cord decompression ? 08/06/2017, SI joint dysfunction, vertebral compression fracture 01/22/2018, neurogenic claudications 12/2017. In 2021 was removing snow from the roof-imaging with mildly displaced right posterior 11th rib fracutre and nondisplaced fractures in the right transverse processes of T12 and L1 Asthma: Frequent bronchitis. Follows with Dr Truong at [place]. He has been reschedule for his barium swallow multiple times due to machine malfunction. Had COVID Feb 2023 requiring hospitalization. Required oxygen for ~1 month. Endocrine: Is following with Dr Nassar for hypogonadism, hypothyroid, vitamin D deficiency and osteopenia. Has had higher K on some of her recent labs Anxiety/depression-Follows with Dr Gracia. Stable on lexparo and xanax GI: Increased, almost nightly reflux despite daily PPI therapy. This is worsened over past year. He has chronic constipation, is on miralax, senna and prn dulcolax but also too feels like this has worsened in the past year. Vaccinations UTD per patient at pharmacy ROS see HPI PHYSICAL EXAM: GENERAL: Alert and oriented x 3. NAD EYES: EOMI. Anicteric. HENT: Moist mucous membranes. LUNGS: Clear to auscultation bilaterally. CARDIOVASCULAR: Regular rate and rhythm. ABDOMEN: Soft, non-tender +bs MSK: Tender SI joints. Weakened dorsiflexion b/l EXTREMITIES: No edema. Non-tender. SKIN: No rashes or lesions. Warm. NEUROLOGIC: Weak left dorsiflexion, plantar flexion PSYCHIATRIC: Cooperative. Appropriate mood and affect [facility] Medical History (Updated 01/24/25 @ 13:00 by Radha Bansal MD) Cataracts, bilateral TMJ syndrome Sore throat Rib fracture Occipital headache Neuropathy Internal hernia Hypothyroidism Hemothorax GERD (gastroesophageal reflux disease) Depression COVID-19 Cough Chronic back pain Carcinoma of sigmoid colon Basal cell carcinoma Asthma Androgen deficiency Allergic rhinitis Abdominal pain Surgical History Hx of colonoscopy Family History Mother Anxiety Dementia Father Chronic obstructive pulmonary disease Brother Chronic obstructive pulmonary disease Brother HTN (hypertension) Maternal Grandmother Heart attack Other FH: mental illness Social History Housing: House Alcohol intake: former Patient Tobacco Use Status: Never used Tobacco e-Cigarette/Vaping Use: Never Used Second Hand Smoke Exposure: Yes service: Yes Current occupational status: retired Current occupational exposures/hazards: No Cognitive needs: No Hearing needs: No Vision needs: No Questionnaire Thrive Questionnaire Date Thrive assessed: 07/19/24 I am a: Patient What is your living situation today?: I have a steady place to live Within the past 12 months, did the food you bought not last and you didn't have the money to get more?: Never true Within the past 12 months, did you worry whether your food would run out before you got money to buy more?: Never true Do you have trouble paying for medicines?: No Do you have trouble getting transportation to medical appointments?: No Do you have trouble paying your heating and electricity bill?: No Do you have trouble taking care of your child, family member or friend?: No Do you have trouble with day-to-day activities such as bathing, preparing meals, shopping, managing finances, etc.?: No Are you currently unemployed and looking for a job?: No Are you interested in more education?: No Please select the resources that you would like help with: None Currently or been in a relationship where the following occur: I choose not to answer THRIVE Score: 0 KIERSTEN-7 AMB Questionnaire KIERSTEN-7 Date KIERSTEN - 7 assessed: 07/14/23 Source: Developed by Drs. Dhruv Spencer, Olivia Rodríguez, Rusty Francisco and colleagues, with an educational from [employer]. Physical exam (Primary Care) Vital Signs: Last Vital Signs Temp 97.9 F 01/24/25 09:43 Pulse 64 01/24/25 09:43 Resp 12 01/24/25 09:43 BP 122/72 01/24/25 09:43 Pulse Ox 97 01/24/25 09:43 Oxygen Delivery Method Room Air 01/24/25 09:43 BMI result Body Mass Index 28.6 Tobacco/Smoking Status: Tobacco use Status Tobacco use date assessed 12/27/24 01/24/25 09:43 Patient Tobacco Use Status Never used Tobacco 01/24/25 09:43 e-Cigarette/Vaping Use Never Used 01/24/25 09:43 Thrive Assessment: Date of Thrive Assessment Date Thrive assessed 07/19/24 01/24/25 09:43 Currently or been in a relationship where the following occur: I choose not to answer Coding Level of Care Code Est Pt Level 4 (22861) Diagnoses Sacral pain M53.3 Bilateral calf pain M79.661; M79.662 Laterality: bilateral Leg weakness, bilateral R29.898 Lumbosacral radiculopathy M54.17 Assessment & Plan Assessment & Plan (1) Sacral pain: Code(s): M53.3 - Sacrococcygeal disorders, not elsewhere classified Category: Medical (2) Calf pain: Code(s): M79.669 - Pain in unspecified lower leg Category: Medical Qualifiers: Laterality: bilateral Qualified Code(s): M79.661 - Pain in right lower leg; M79.662 - Pain in left lower leg (3) Leg weakness, bilateral: Code(s): R29.898 - Other symptoms and signs involving the musculoskeletal system Category: Medical (4) Lumbosacral radiculopathy: Code(s): M54.17 - Radiculopathy, lumbosacral region Category: Medical Plan Buttock and leg pain Could be residual following surgery. MRI sacrum pending. EMGs ordered. Arterial duplex r/o PAD Trial journavx. Coupon sent with rx Continue f/up pain management/physiatry Orders: Orders NE electromyogram (EMG) Today M79.669 - Pain in unspecified lower leg, R29.898 - Other symptoms and signs involving the musculoskeletal system NE nerve conduction velocity Today M79.669 - Pain in unspecified lower leg, R29.898 - Other symptoms and signs involving the musculoskeletal system US arterial duplex LE BI Today M79.669 - Pain in unspecified lower leg, R29.898 - Other symptoms and signs involving the musculoskeletal system Medications: New suzetrigine (Journavx) MEMBER ID MAULIK ALBERTS [id number] [facility] [id number] 50 mg PO BID 30 tabs 0RF
[2025-01-24 09:43] VITALS: BP 122/72; PULSE 64; RESP 12; TEMP 36.6; O2SAT 97; BMI 28.6
--- OUTSIDE RECORDS SUMMARY | 2025-01-24 10:30 | XMS_ITS | Encounter Summary ---
Author Organization [facility] Address [address] [facility] [address] [facility] [address] [place] [address] Phone Care Team Providers Care Maitre D Name Role Phone Radha Gonzalez MD Primary Care Provider + [phone] Encounter Details Date Type Department Care Team (Late st Contact Info) Description 10/15/2022 Procedure Pass [facility] [address] [place] [phone] Social History Tobacco Use Types Packs/Day Years [...] 11:20 AM EST Office Visit [facility] [address] [place] [address] Jennifer Ag MD [address] [place] [address] [email or web address] documented as of this encounter Visit Diagnoses Not on filedocumented in this encounter Care Teams Maitre D Relationship Specialty Start Date End Date Radha Gonzalez MD PCP - General Internal Medicine 08/15/22 documented as of this encounter Additional Source Comments The information contained in this document represents components of the legal health record. It is not the complete legal health record.[facility]
--- OUTSIDE RECORDS SUMMARY | 2025-01-24 10:30 | XMS_ITS | Clinical Summary ---
Author Organization [facility] Address [address] [place] [address] Care Team Providers Care Desulfurizer Machine Name Role Phone Radha Bansal MD Primary Care Provider [phone] Allergies Active Allergy Reactions Criticality Noted Date [...] topic Insurance MEDICARE PART A & B [facility] Care Teams Desulfurizer Machine Relationship Specialty Start Date End Date Radha Bansal MD [address] [place] [address] [place] [phone] PCP - General
--- OUTSIDE RECORDS SUMMARY | 2025-01-24 10:30 | XMS_ITS | Encounter Summary ---
Author Organization [facility] Address [address] [facility] [address] [place] [address] Phone Care Team Providers Care Emu Farm Worker Name Role Phone Radha Gonzalez MD Primary Care Provider + [phone] Encounter Details Date Type Department Care Team (Late Contact Info) Description 10/09/2022 Procedure Pass [facility] [address] [facility] [address] [place] [address] Social History Tobacco Use Types Packs/Day Years [...] AM EST Office Visit [facility] [address] [place] [address] Jennifer Ag MD [address] [place] [phone] [email or web address] documented as of this encounter Visit Diagnoses Not on filedocumented in this encounter Care Teams Emu Farm Worker Relationship Specialty Start Date End Date Radha Gonzalez MD PCP - General Internal Medicine 08/15/22 documented as of this encounter Additional Source Comments The information contained in this document represents components of the legal health record. It is not the complete legal health record.[facility]
--- OUTSIDE RECORDS SUMMARY | 2025-01-24 10:31 | XMS_ITS | Clinical Summary ---
Author Organization [facility] Address [address] [place] [address] Phone Care Team Providers Care Inspector Electromechanical Name Role Phone Radha Gonzalez MD Primary Care Provider Allergies Active Allergy Reactions Criticality Noted Date Comments Clindamycin Hives,Rash Low 06/05/2010 Scratchy throat Levofloxacin Itching 02/24/201403/2013 Medications escitalopram oxalate (LEXAPRO) 20 MG tablet 07/30/19 23 Active gabapentin (NEURONTIN) 100 MG capsule TAKE 1 TO 3 CAPSULES BY MOUTH 1 TO 2 HOURS BEFORE BEDTIME 05/19/19 23 Active tamsulosin (FLOMAX) 0.4 mg Cap Take 0.8 mg by mouth. 02/13/20 22 Active latanoprost (XALATAN) 0.005 % ophthalmic solution INSTILL 1 DROP INTO THE LEFT EYE EVERY EVENING DIRECTED 07/24/19 23 Active hydrOXYzine (ATARAX) 25 MG tablet 05/30/19 23 Active lidocaine (LIDODERM) 5 % APPLY TOPICALLY UP TO 3 PATCHES AT A TIME TO AFFECTED AREA 12 HOURS ON AND 12 HOURS OFF 05/24/19 23 Active fluticasone propionate (FLOVENT HFA) 110 mcg/actuation inhaler See Instructions, INHALE 1 PUFF BY MOUTH TWICE DAILY, # 12 Gm, 0 [id number], 168, cm, 05/02/21 11:36:00 EST, Height, 83.5, kg, 04/30/21 13:11:00 EST, Dry Weight 06/25/19 Active docusate sodium (COLACE) 100 MG capsule Take 100 mg by mouth. 10/31/19 22 Active cholecalciferol (VITAMIN D3) 2,000 unit capsule Take 2,000 Units by mouth daily. Active cyanocobalamin, vitamin B-12, 1,000 mcg Cap Take by mouth. A ctive folic acid 20 mg Cap Take 800 mcg by mouth. Active multivitamin-mi nerals-lutein (CENTRUM SILVER) Tab Take 1 tablet by [...] lungs 2 (two) times a day. Active testosterone (ANDROGEL) 20.25 mg/1.25 gram (1.62 %) transdermal gel pump Apply to the skin 3 pumps on Mondays, Wednesdays and Fridays and 2 pumps on the other days 150 g 5 07/14/19 25 Active levothyroxine (SYNTHROID, LEVOTHROID) 100 MCG tablet TAKE 1 TABLET(100 MCG) BY MOUTH EVERY MORNING 90 tablet 1 01/10/20 25 Active levothyroxine (SYNTHROID, LEVOTHROID) 100 MCG tablet Take 1 tablet (100 mcg total) by mouth every morning. 90 tablet 3 12/09/19 24 025 Discontinued Active Problems Problem Noted Date Diagnosed Date [...] prevention. -Would repeat DEXA after 01/12/2025 at [facility]. Assessment & Plan (06/07/2023 8:46 PM EDT): [...] Would repeat DEXA after 01/12/2025 at [facility] [place]. Assessment & Plan (02/20/2023 4:39 PM [...] Encounters Date Type Department Care Team Description 01/09/2025 Refill [facility] [address] [place] [address] Jennifer Ag MD Medication Refill from Last 3 Months Social History Tobacco [...] 11:20 AM EST Office Visit [facility] [address] [place] [phone] Jennifer Ag MD [address] [place] [phone] [email or web address] [facility] Maintenance Due Date Last Done Comments LIPID PANEL 1945 HEPATITIS C SCREENING 07/16/1963 ZOSTER VACCINES (3 of 3) 12/17/2019 10/22/2019, 11/23 DEPRESSION SCREENING 06/17/2024 06/18/2023 INFLUENZA VACCINE (#1) 2024 , 12/10/2021, 11/29/2020, Additional history exists COVID-19 VACCINE (2024- season) 2024 11/12/2022, 12/10/2021, 06/06/2021, Additional history [...] MD LAB BLOOD BKR ORDERABLES Final Result [address] [id number] from Last 3 Months or Most Recently Relevant to Health Maintenance Insurance [place] [employer]EX SUPPLEMENT MEDICARE PART A & B Member Subscriber Plan / Payer (Ef fective 2010-Present) Name:Calvin Tejada Member ID:[id number] Relation to Subscriber:Self Name:Calvin Tejada Subscriber ID:[id number] Payer ID:[id number] Group ID:Not on file Type:Medicare Address: [facility] ab&jb properties and services [facility] [address] [place] [phone] [employer] MEDEX SUPPLEMENT MEDICARE PART A & B [place] [employer] SUPPLEMENT [employer]OSS MEDEX SUPPLEMENT [place] MEDEX SUPPLEMENT MEDICARE PART A & B [place] MEDEX SUPPLEMENT [place] MEDEX SUPPLEMENT MEDICARE PART A & B [place] MED[employer] SUPPLEMENT MEDICARE PART A & B [employer] SUPPLEMENT MEDICARE PART A & B Care Teams Inspector Electromechanical Relationship Specialty Start Date End Date Radha Gonzalez MD PCP - General Internal Medicine 08/15/22 Additional Source Comments The information contained in this document represents components of the legal health record. It is not the complete legal health record.[facility]
== END 2025-01-24 10:23 | disposition home or self-care (01) ==
LOC: HO.HMCFM 09:37
PROVIDERS: PCP Internal Medicine; Visit Provider Internal Medicine
DX: M53.3 Sacrococcygeal disorders, not elsewhere classified (principal); M79.661 Pain in right lower leg; M79.662 Pain in left lower leg; R29.898 Other symptoms and signs involving the musculoskeletal system; M54.17 Radiculopathy, lumbosacral region

== ENCOUNTER → 2025-01-24 09:37 | Outpatient (BNVA) | payer MEDICARE, SELFPAY | PROVIDERS: PCP Internal Medicine; Visit Provider Internal Medicine | DX: M53.3 Sacrococcygeal disorders, not elsewhere classified (principal); M79.661 Pain in right lower leg; M79.662 Pain in left lower leg; R29.898 Other symptoms and signs involving the musculoskeletal system; M54.17 Radiculopathy, lumbosacral region; G89.29 Other chronic pain; Z87.311 Personal history of (healed) other pathological fracture; Z98.890 Other specified postprocedural states | CPT/HCPCS: 99212 ==

== ENCOUNTER 2025-01-26 14:52 | Outpatient (AMB) | payer MEDICARE, SELFPAY ==
--- NOTE | 2025-01-26 14:54 | MHC.OFFVIS ---
Vital Signs 01/26/25 14:55 Height 5 ft 8 in Weight 187 lb BMI 28.4 BP 145/70 H Blood Pressure Location Lt brachial Position Sitting Respiration 16 Pulse 60 Pulse Source Pulse Oximeter Pulse Oximetry (%) 96 Oxygen Delivery Method Room Air Intake Visit Reasons: Lumbar Radiculopathy System Technologist Required: No Accompanied by: Allergies clindamycin Allergy (Severe, Verified 01/26/25 14:59) Rash levofloxacin (From Levaquin) Allergy (Mild, Verified 01/26/25 14:59) Rash HPI Comments Details: Calvin is very pleasant 79 years old gentleman who presents in my office with complains on pain in the lower back with radiation to bilateral lower extremities, he reports that he had spinal stenosis in the past and had surgery on his lower back. He reports that his problem started in 2024 after the operation on his back. Most of the pain he is suffering from he reports is the pain which starts in bilateral hips and radiates down the bilateral lower thighs to the level of the knees and sometimes below the level of the knees. Because of his pain he can not sleep normally can not do activities of daily living he is able to take care of himself but he can not function normally. He is retired individual. Weather changes in movements aggravate his pain. Topical medications and oral medications make his pain better. This pain is more severe in morning in the afternoon and less severe in the evening time. In terms of tissue damage he describes his pain as shooting, stabbing, sharp, hot burning, tiring, aching, radiating, piercing sensation. He had images in [facility] available for review. He had an MRI of the lumbar spine results of which dictated as below. He had a extensive course of physical therapy many times without relief. He had massage therapy with short lived pain alleviation. I had acupuncture with no pain relief. He reports that he was counseled for depression in the past. He had multiple injections in the past including caudal epidural steroid injection in October of 2024 without help. He had injection for bursitis of both hips without help. His past surgical history included L2-L3 laminotomy and L4-5 laminectomy. [facility], [facility] Medical History (Updated 02/02/25 @ 07:43 by Kostas Manrique MD) Cataracts, bilateral TMJ syndrome Sore throat Rib fracture Occipital headache Neuropathy Internal hernia Hypothyroidism Hemothorax GERD (gastroesophageal reflux disease) Depression COVID-19 Cough Chronic back pain Carcinoma of sigmoid colon Basal cell carcinoma Asthma Androgen deficiency Allergic rhinitis Abdominal pain Surgical History (Updated 01/28/25 @ 07:22 by Nadia Weathers MA) History of intestinal surgery History of cancer surgery History of back surgery Hx of colonoscopy Family History Mother Anxiety Dementia Father Chronic obstructive pulmonary disease Brother Chronic obstructive pulmonary disease Brother HTN (hypertension) Maternal Grandmother Heart attack Other FH: mental illness Social History Housing: House Alcohol intake: former Patient Tobacco Use Status: Never used Tobacco e-Cigarette/Vaping Use: Never Used Second Hand Smoke Exposure: Yes service: Yes Current occupational status: retired Current occupational exposures/hazards: No Cognitive needs: No Hearing needs: No Vision needs: No Review of Systems Const All systems reviewed & are unremarkable except as noted in HPI and below ENT Reports Normal hearing present Neuro Reports Normal hearing present, Denies Abnormal speech present, Denies confusion and Denies Sensory deficit (Neuro) Psych Denies confusion Physical Exam Vital Signs: Last Vital Signs Pulse 60 01/26/25 14:55 Resp 16 01/26/25 14:55 BP 145/70 H 01/26/25 14:55 Pulse Ox 96 01/26/25 14:55 Oxygen Delivery Method Room Air 01/26/25 14:55 BMI result Body Mass Index 28.4 Const General: no acute distress; No confusion Orientation/consciousness: patient oriented x3 and No confusion Eyes General: appearance normal, both eyes and all related structures Pupils: Equal, round and reactive pupils present EOM: EOMs intact bilaterally Neck Neck: Yes full ROM Chest Chest palpation & inspection: normal inspection of the chest Resp Effort & Inspection: normal respiratory effort, able to speak in complete sentences, normal respiratory pattern, no audible wheezes and no cough Cardio Jugular venous distension: no JVD GI Inspection: Yes normal to inspection Back/Spine/Pelvis Other: Able to stand on bilateral tiptoes however with difficulty. Also able to stand on bilateral heels also with difficulty. SLR is positive bilaterally. Neuro General: patient oriented x3, gait normal and No confusion Cranial nerves: Yes CN's II-XII intact bilaterally, Yes Equal, round and reactive pupils present, Yes Normal hearing present and Yes Ability to bilaterally elevate shoulders present Speech: No Abnormal speech present Gait exam (Neuro): Normal gait present Motor exam (neuro): 5/5 motor strength present throughout Sensory Exam: No Sensory deficit (Neuro) Extrem General: No pedal edema Psych Speech and movement: Normal speech and movement present Affect: normal affect Attitude: cooperative Thought process: Normal thought process present Thought content: Normal thought content present Insight: Good insight present (Psych) Judgement: Good judgement present (Psych) Results Reviewed Results Reviewed: MR lumbar spine with and without gadolinium Comparison: None Findings: Lumbar alignment is maintained. Vertebral body height is maintained. No bone marrow edema or bone lesion. Degenerative disc disease throughout the lumbar spine. Distal conus terminates at T11-12. T12-L1 and L1-2 demonstrate mild spondylotic disc bulges and ligamentum flavum thickening at L1-2. No significant stenosis. At L2-3 spondylotic disc bulge and facet arthropathy and previous left hemilaminectomy. There is enhancement in the laminectomy defect also involving adjacent left paramidline soft tissues. There is mild canal and neural foraminal stenosis bilaterally. At L3-4 spondylotic disc bulge and facet arthropathy with mild canal and lateral recess stenosis bilaterally. No significant foraminal stenosis. At L4-5 previous bilateral laminectomies with mild spondylotic disc bulge and facet arthropathy with mild stenosis of the neural foramina. At L5-S1 mild spondylotic disc bulge with prominent facet arthropathy with mild stenosis of the lateral recesses bilaterally. Postcontrast administration there is enhancement in the laminectomy defects at L2-3 and in left posterior soft tissues. No loculated fluid collection. IMPRESSION: 1. Previous left hemilaminectomy at L2-3 and bilateral laminectomies at L4-5. 2. Multilevel degenerative changes and spondylotic disc bulges and facet arthropathy with stenosis as described. 3. No focal disc herniation. 4. Enhancement at the L2-3 left hemilaminectomy defect in in left sided soft tissues with no loculated fluid collection. Fluid collection Assessment & Plan Assessment & Plan (1) Greater trochanteric bursitis of both hips: Code(s): M70.61 - Trochanteric bursitis, right hip; M70.62 - Trochanteric bursitis, left hip Category: Medical (2) Postlaminectomy syndrome: Code(s): M96.1 - Postlaminectomy syndrome, not elsewhere classified Category: Medical (3) Chronic pain syndrome: Code(s): G89.4 - Chronic pain syndrome Category: Medical (4) Iliotibial band syndrome, unspecified leg: Code(s): M76.30 - Iliotibial band syndrome, unspecified leg Category: Medical Plan It looks like that the patient is complaining mostly on pain with iliotibial band syndrome and trochanteric bursitis pain. I explained to the patient that the most effective treatment for this condition is physical therapy and topical application of the medications. I explained to him that I will send him to physical therapy to start his treatment. I also recommended him to go to the pharmacy and [id number] obtain lidocaine patches and diclofenac ointment. I recommended him to apply lidocaine patches 12 hours on every night and after he remove lidocaine patches washed the area out and apply in the morning diclofenac gel. We agreed that the patient will complete physical therapy and after that he will give us a call and schedule appointment with me. Orders: Orders PT Evaluation and Treatment 01/26/25 M70.61 - Trochanteric bursitis, right hip, M70.62 - Trochanteric bursitis, left hip Coding Level of Care Code New Pt Level 3 (17410) Diagnoses Greater trochanteric bursitis of both hips M70.61; M70.62 Postlaminectomy syndrome M96.1 Chronic pain syndrome G89.4 Iliotibial band syndrome, unspecified leg M76.30
[2025-01-26 14:55] VITALS: BP 145/70; PULSE 60; RESP 16; O2SAT 96; BMI 28.4
--- OUTSIDE RECORDS SUMMARY | 2025-01-26 21:03 | XMS_ITS | Encounter Summary ---
Author Organization [facility] Address [address] [place] [address] Phone Care Team Providers Care Water Superintendent Name Role Phone Radha Gonzalez MD Primary Care Provider + [phone] Encounter Details Date Type Department Care Team (Late Contact Info) Description 10/09/2022 Procedure Pass [facility] Solar System Installer [facility] [address] [address] [place] [address] Social History Tobacco Use Types Packs/Day Years [...] AM EST Office Visit [facility] [address] [place] [address] Jennifer Ag MD [address] [place] [phone] [email or web address] documented as of this encounter Visit Diagnoses Not on filedocumented in this encounter Care Teams Water Superintendent Relationship Specialty Start Date End Date Radha Gonzalez MD PCP - General Internal Medicine 08/15/22 documented as of this encounter Additional Source Comments The information contained in this document represents components of the legal health record. It is not the complete legal health record.[facility]
--- OUTSIDE RECORDS SUMMARY | 2025-01-26 21:04 | XMS_ITS | Clinical Summary ---
Author Organization [facility] Address [address] [place] [address] Phone Care Team Providers Care Va Underwriter Name Role Phone Radha Gonzalez MD Primary [...] TWICE DAILY, # 12 Gm, 0 [id number], 168, cm, 05/02/21 11:36:00 EST, Height, 83.5, [...] prevention. -Would repeat DEXA after 01/12/2025 at [facility]. Assessment & Plan (06/07/2023 8:46 PM [...] prevention. Would repeat DEXA after 01/12/2025 at [facility]. Assessment & Plan (02/20/2023 4:39 PM [...] Team Description 01/09/2025 Refill [facility] [address] [place] [address] Jennifer Ag MD Medication Refill from Last [...] 11:20 AM EST Office Visit [facility] [address] [place] [address] Jennifer Ag MD [address] [place] [address] [email or web address] Health Maintenance Due Date Last Done Comments [...] MD LAB BLOOD BKR ORDERABLES Final Result [address] [address] from Last 3 Months or Most Recently Relevant to Health Maintenance Insurance [employer] MEDEX SUPPLEMENT MEDICARE PART A & B Member Subscriber Plan / Payer (Ef fective 2010-Present) Name:Calvin Tejada Member ID:[id number] Relation to Subscriber:Self Name:Calvin Tejada Subscriber ID:[id number] Payer ID:[id number] Group ID:Not on file Type:Medicare Address: [facility] [employer]™ [employer] [facility]. [address] [place] [address] [employer] CROSS MEDEX SUPPLEMENT MEDICARE PART A & B [employer] MED[employer] SUPPLEMENT [employer] CROSS MEDEX SUPPLEMENT [employer] MEDEX SUPPLEMENT MEDICARE PART A & B [employer] MEDEX SUPPLEMENT [employer] MEDEX SUPPLEMENT MEDICARE PART A & B [employer] MEDEX SUPPLEMENT MEDICARE PART A & B [employer] MEDEX SUPPLEMENT MEDICARE PART A & B Care Teams Va Underwriter Relationship Specialty Start Date End Date Radha Gonzalez MD PCP - General Internal Medicine 08/15/22 Additional Source Comments The information contained in this document represents components of the legal health record. It is not the complete legal health record.[facility]
--- OUTSIDE RECORDS SUMMARY | 2025-01-26 21:04 | XMS_ITS | Encounter Summary ---
Author Organization [facility] Address [address] [facility] [address] [place] [address] Phone Care Team Providers Care Pet Training Instructor Name Role Phone Radha Gonzalez MD Primary Care Provider + [phone] Encounter Details Date Type Department Care Team (Late st Contact Info) Description 10/15/2022 Procedure Pass [facility] [address] [place] [phone] Social History Tobacco Use Types Packs/Day Years [...] 11:20 AM EST Office Visit [facility] [address] [place] [address] Jennifer Ag MD [address] [place] [phone] [email or web address] documented as of this encounter Visit Diagnoses Not on filedocumented in this encounter Care Teams Pet Training Instructor Relationship Specialty Start Date End Date Radha Gonzalez MD PCP - General Internal Medicine 08/15/22 documented as of this encounter Additional Source Comments The information contained in this document represents components of the legal health record. It is not the complete legal health record.[facility]
--- OUTSIDE RECORDS SUMMARY | 2025-01-26 21:04 | XMS_ITS | Clinical Summary ---
Author Organization [facility] Address [address] [place] [address] Care Team Providers Care Advertiser Name Role Phone Radha Bansal MD Primary Care Provider [phone] Allergies Active Allergy Reactions Criticality Noted Date [...] Description 03/06/2025 11:15 AM EST Office Visit [facility] [address] [address] Navi Horton MD [address] [facility] [address] [place] [address] Health Maintenance Due Date Last Done [...] topic Insurance MEDICARE PART A & B [facility] Care Teams Advertiser Relationship Specialty Start Date End Date Radha Bansal MD [address] [place] [phone] PCP - General
== END 2025-01-26 15:36 | disposition home or self-care (01) ==
LOC: HO.PMC 14:53
PROVIDERS: PCP Internal Medicine; Referring Provider Internal Medicine; Visit Provider Anesthesiology
DX: M70.61 Trochanteric bursitis, right hip (principal); M70.62 Trochanteric bursitis, left hip; M96.1 Postlaminectomy syndrome, not elsewhere classified; G89.4 Chronic pain syndrome; M76.30 Iliotibial band syndrome, unspecified leg
CPT/HCPCS: 99203

== ENCOUNTER → 2025-01-26 14:52 | Outpatient (BNVA) | payer MEDICARE, SELFPAY | PROVIDERS: PCP Internal Medicine; Referring Provider Internal Medicine; Visit Provider Anesthesiology | DX: G89.4 Chronic pain syndrome (principal); M70.61 Trochanteric bursitis, right hip; M70.62 Trochanteric bursitis, left hip; M96.1 Postlaminectomy syndrome, not elsewhere classified; M76.30 Iliotibial band syndrome, unspecified leg | CPT/HCPCS: 99202 ==

== ENCOUNTER → 2025-01-27 08:46 | Outpatient (BNV) | payer MEDICARE, SELFPAY | PROVIDERS: PCP Internal Medicine; Visit Provider Radiology Diagnostic Radiology | DX: M53.3 Sacrococcygeal disorders, not elsewhere classified (principal); M16.0 Bilateral primary osteoarthritis of hip | CPT/HCPCS: 72195 ==

== ENCOUNTER 2025-01-27 09:17 | Outpatient (REF) | payer MEDICARE, SELFPAY ==
--- NOTE | ~2025-01-27 | MR_ITS ---
EXAMINATION: MR PELVIS WITH CONTRAST CLINICAL INFORMATION: Bilateral leg pain, lower back pain and numbness with shakiness in the mornings, symptoms since 2011, no injury COMPARISON: MRI lumbar spine 11/12/2024 TECHNIQUE: Multiplanar multisequence MRI of the pelvis and sacrum was performed without IV contrast FINDINGS: BONES/MARROW: SI joints are symmetrical. There are no erosions. There is focal edema like signal adjacent the inferior left articular portion of the SI joint and very minimally on the right involving the iliac side only. There is no bony fusion. Bone marrow signal is physiologic otherwise. Laminectomy has been performed at L3 The right hip joint demonstrates moderate axial joint space narrowing with moderate marginal osteophytes. The left hip joint demonstrates mild to moderate marginal osteophytes with minimal joint space narrowing. ARTICULAR CARTILAGE: No articular cartilage defects are evident in the SI joints. There is diffuse thinning of articular cartilage in both hip joints. SOFT TISSUES: There is a multiloculated cyst extending from the posterior superior right hip labrum at 10-11:00. Fluid signal traverses the anterior superior left hip labrum at 1:00. No hip joint effusion is present. There is minimal peritendinous fluid signal around the right gluteus medias tendon and left gluteus medias and minimus tendons near the greater trochanters. There is minimal peritendinous fluid signal along the lateral aspect of the right hamstring tendon. There is no fatty streaking of pelvic musculature. There is mild edema like signal through the left paraspinal musculature at L3: Postsurgical in nature. No abnormalities are noted along the major neurovascular bundles. MR/MR pelvis wo con IMPRESSION: Posterior superior right hip labral tear with paralabral cyst. Anterior superior left hip labral tear. 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 Mild nonspecific degenerative change involving left greater than right SI joints. Mild changes of tendinopathy involving the right gluteus medius, right hamstring, and left gluteus medius and minimus tendons. Electronically signed by: Asad Pitt MD 01/27/2025 10:38 AM EST
--- OUTSIDE RECORDS SUMMARY | 2025-01-27 10:01 | XMS_ITS | Encounter Summary ---
Author Organization [facility] Address [address] [facility] [place] [address] Phone Care Team Providers Care Pst Specialist Name Role Phone Radha Gonzalez MD Primary Care Provider + [phone] Encounter Details Date Type Department Care Team (Late Contact Info) Description 10/09/2022 Procedure Pass [facility] Habitat Conservation Planner [facility] [address] [facility] [address] [place] [address] Social History Tobacco Use Types Packs/Day Years [...] AM EST Office Visit [facility] [address] [place] [address] Jennifer Ag MD [address] [place] [phone] [email or web address] documented as of this encounter Visit Diagnoses Not on filedocumented in this encounter Care Teams Pst Specialist Relationship Specialty Start Date End Date Radha Gonzalez MD PCP - General Internal Medicine 08/15/22 documented as of this encounter Additional Source Comments The information contained in this document represents components of the legal health record. It is not the complete legal health record.[facility]
--- OUTSIDE RECORDS SUMMARY | 2025-01-27 10:01 | XMS_ITS | Clinical Summary ---
Author Organization [facility] Address [address] [place] [address] Care Team Providers Care Air Pollution Control Engineer Name Role Phone Radha Bansal MD Primary Care Provider [phone] Allergies Active Allergy Reactions Criticality Noted Date [...] Description 03/06/2025 11:15 AM EST Office Visit [facility] [address] [address] Navi Horton MD [address] [facility] [address] [place] [address] Health Maintenance Due Date Last Done [...] topic Insurance MEDICARE PART A & B [facility] Care Teams Air Pollution Control Engineer Relationship Specialty Start Date End Date Radha Bansal MD [address] [place] [phone] PCP - General
--- OUTSIDE RECORDS SUMMARY | 2025-01-27 10:02 | XMS_ITS | Clinical Summary ---
Author Organization [facility] Address [address] [place] [address] Phone Care Team Providers Care Duster Tender Name Role Phone Radha Gonzalez MD Primary [...] TWICE DAILY, # 12 Gm, 0 [facility], [id number], 168, cm, 05/02/21 11:36:00 EST, Height, 83.5, [...] prevention. -Would repeat DEXA after 01/12/2025 at [facility] [place]. Assessment & Plan (06/07/2023 8:46 PM [...] prevention. Would repeat DEXA after 01/12/2025 at [facility]. Assessment & Plan (02/20/2023 4:39 PM [...] Team Description 01/09/2025 Refill [facility] [address] [place] [address] Jennifer Ag MD Medication Refill from Last [...] 11:20 AM EST Office Visit [facility] [address] [place] [address] Jennifer Ag MD [address] [place] [phone] [email or web address] Health Maintenance Due Date Last Done Comments [...] MD LAB BLOOD BKR ORDERABLES Final Result [address] [address] from Last 3 Months or Most Recently Relevant to Health Maintenance Insurance [employer] MEDEX SUPPLEMENT MEDICARE PART A & B [facility] CROSS MEDEX SUPPLEMENT MEDICARE PART A & B [employer] SUPPLEMENT [facility] CROSS MEDEX SUPPLEMENT [employer] MEDEX SUPPLEMENT MEDICARE PART A & B [employer] SUPPLEMENT [employer] MEDEX SUPPLEMENT MEDICARE PART A & B [employer] MEDEX SUPPLEMENT MEDICARE PART A & B [employer] SUPPLEMENT MEDICARE PART A & B Care Teams Duster Tender Relationship Specialty Start Date End Date Radha Gonzalez MD PCP - General Internal Medicine 08/15/22 Additional Source Comments The information contained in this document represents components of the legal health record. It is not the complete legal health record.[facility]
--- OUTSIDE RECORDS SUMMARY | 2025-01-27 10:02 | XMS_ITS | Encounter Summary ---
Author Organization [facility] Address [address] [facility] [address] [address] [place] [address] Phone Care Team Providers Care Search Marketing Analyst Name Role Phone Radha Gonzalez MD Primary Care Provider + [phone] Encounter Details Date Type Department Care Team (Late st Contact Info) Description 10/15/2022 Procedure Pass [facility] Graining Operator Center [address] [place] [address] Social History Tobacco Use Types Packs/Day Years [...] AM EST Office Visit [facility] [address] [place] [phone] Jennifer Ag MD [address] [place] [phone] [email or web address] documented as of this encounter Visit Diagnoses Not on filedocumented in this encounter Care Teams Search Marketing Analyst Relationship Specialty Start Date End Date Radha Gonzalez MD PCP - General Internal Medicine 08/15/22 documented as of this encounter Additional Source Comments The information contained in this document represents components of the legal health record. It is not the complete legal health record.[facility]
== END 2025-01-27 09:18 | disposition home or self-care (01) ==
LOC: HO.MRI 09:17
PROVIDERS: PCP Internal Medicine; Visit Provider Internal Medicine
DX: R29.898 Other symptoms and signs involving the musculoskeletal system (principal); M53.3 Sacrococcygeal disorders, not elsewhere classified; M54.17 Radiculopathy, lumbosacral region; M79.604 Pain in right leg; M79.605 Pain in left leg; R20.0 Anesthesia of skin; R25.1 Tremor, unspecified
CPT/HCPCS: 72195

== ENCOUNTER 2025-02-14 10:18 | Outpatient (AMB) | payer MEDICARE, SELFPAY ==
[2025-02-14 10:20] VITALS: BMI 28.4
--- NOTE | 2025-02-14 10:20 | A.PHYSOV ---
Vital Signs 02/14/25 10:20 Height 5 ft 8 in Weight 187 lb BMI 28.4 Intake Visit Reasons: F/U after inj 12/10/24 and Bursa hip inj Intake Note: Patient is a 79 year old male in office today for a follow up after Caudal Epidural Injection 12/10/24. Patient is a requesting a bursa injection. Animal Rescuer Required: No Allergies clindamycin Allergy (Severe, Verified 02/14/25 10:21) Rash levofloxacin (From Levaquin) Allergy (Mild, Verified 02/14/25 10:21) Rash [facility] [place] [facility] Medical History (Updated 02/02/25 @ 07:43 by Kostas Manrique MD) Cataracts, bilateral TMJ syndrome Sore throat Rib fracture Occipital headache Neuropathy Internal hernia Hypothyroidism Hemothorax GERD (gastroesophageal reflux disease) Depression COVID-19 Cough Chronic back pain Carcinoma of sigmoid colon Basal cell carcinoma Asthma Androgen deficiency Allergic rhinitis Abdominal pain Surgical History History of intestinal surgery History of cancer surgery History of back surgery Hx of colonoscopy Family History Mother Anxiety Dementia Father Chronic obstructive pulmonary disease Brother Chronic obstructive pulmonary disease Brother HTN (hypertension) Maternal Grandmother Heart attack Other FH: mental illness Social History Housing: House Alcohol intake: former Patient Tobacco Use Status: Never used Tobacco e-Cigarette/Vaping Use: Never Used Second Hand Smoke Exposure: Yes service: Yes Current occupational status: retired Current occupational exposures/hazards: No Cognitive needs: No Hearing needs: No Vision needs: No Physical Exam Vital Signs: BMI result Body Mass Index 28.4 Office Procedures AMB Hip Injection AMB Hip Injection Procedure Details: Bilateral Greater trochanteric bursal injection: The risks, benefits and complications of the left greater trochanteric bursitis/gluteal tendinopathy were discussed with the patient, including but not limited to infection, increased serum glucose, nerve damage, bleeding and pain. All questions were answered to the patient's satisfaction. Verbal consent was obtained. The patient was eager to proceed. Patient was cleansed with Betadine, ethyl chloride was then used to desensitize the skin. Using an a 25-gauge needle 40 mg of Kenalog and 3 mL 2% lidocaine were injected over the greater trochanter of maximal tenderness. The patient tolerated the procedure well without immediate complication. Postinjection instructions were given. The procedure was repeated on the right. Hip (Bursa) Injection - : Bilateral All charges added?: Procedure code (CPT) selection complete Office Meds Kenalog 40 mg/mL suspension for injection Performing Provider: JOSUE Broussard Performing Location: [facility] Administered by: JOSUE Broussard on 02/14/25 10:54 Dose Route Admin Location Dispensed Lot Number Expiration Date [facility] Operational Risk Consultant 40 mg intrabursal 1 mL [id number] [employer] Total Dispensed Waste 1 mL 0 % lidocaine (PF) 20 mg/mL (2 %) injection solution Performing Provider: JOSUE Broussard Performing Location: [facility] Administered by: JOSUE Broussard on 02/14/25 10:54 Dose Route Admin Location Dispensed Lot Number Expiration Date [facility] Operational Risk Consultant 60 mg intrabursal 5 mL [id number] [facility] Total Dispensed Waste 5 mL 40 % Assessment & Plan Assessment & Plan (1) Greater trochanteric bursitis of both hips: Code(s): M70.61 - Trochanteric bursitis, right hip; M70.62 - Trochanteric bursitis, left hip Category: Medical Plan Mr. Mallory franklin want to buy pizza today Orders: Orders AMB Hip/Bursa Injection Today M70.61 - Trochanteric bursitis, right hip, M70.62 - Trochanteric bursitis, left hip Coding Level of Care Code Procedure Only Diagnoses Greater trochanteric bursitis of both hips M70.61; M70.62 CPT Codes AMB Hip Injection - Hip/Bursa Injection - : Bilateral ([id number])
--- OUTSIDE RECORDS SUMMARY | 2025-02-14 11:32 | XMS_ITS | Clinical Summary ---
Author Organization [facility] Address [address] [place] [address] Phone Care Team Providers Care Human Resources Designate Name Role Phone Radha Gonzalez MD Primary [...] TWICE DAILY, # 12 Gm, [id number], 168, cm, 05/02/21 11:36:00 EST, Height, 83.5, [...] other days 150 g 5 5 Active levothyroxine (SYNTHROID, LEVOTHROID) 100 MCG tablet TAKE 1 TABLET(100 MCG) BY MOUTH EVERY MORNING 90 tablet 1 5 Active Active Problems Problem Noted Date [...] prevention. -Would repeat DEXA after 01/12/2025 at [facility]. Assessment & Plan (06/07/2023 8:46 PM EDT): [...] prevention. [facility] Assessment & Plan (02/20/2023 4:39 PM EST): [...] Type Department Care Team Description 01/09/2025 Refill [facility] [address] [place] [address] Jennifer Ag MD Medication Refill from Last [...] Description 04/26/2025 11:20 AM EST Office Visit [facility] [address] [place] [address] Jennifer Ag MD [address] [place] [address] [email or web address] Health Maintenance Due Date Last Done Comments [...] MD LAB BLOOD BKR ORDERABLES Final Result [facility] [address] [place] [address] from Last 3 Months or Most Recently Relevant to Health Maintenance Insurance [employer] MEDEX SUPPLEMENT MEDICARE PART A & B [employer] MED[employer] SUPPLEMENT MEDICARE PART A & B [employer] SUPPLEMENT [employer] SUPPLEMENT [employer] MED[employer] SUPPLEMENT MEDICARE PART A & B [employer] SUPPLE[employer] MED[employer] SUPPLEMENT MEDICARE PART A & B [employer] SU[employer] MEDICARE PART A & B [employer] MEDICARE PART A & B Care Teams Human Resources Designate Relationship Specialty Start Date End Date Radha Gonzalez MD PCP - General Internal Medicine 08/15/22 Additional Source Comments The information contained in this document represents components of the legal health record. It is not the complete legal health record.[facility]
--- OUTSIDE RECORDS SUMMARY | 2025-02-14 11:32 | XMS_ITS | Clinical Summary ---
Author Organization [facility] Address [address] [place] [address] Care Team Providers Care Manager Operations Research Name Role Phone Radha Bansal MD Primary Care Provider [phone] Allergies Active Allergy Reactions Criticality Noted Date [...] Description 03/06/2025 11:15 AM EST Office Visit [facility] [address] [address] Navi Horton MD [address] [facility] [address] [place] [address] Health Maintenance Due Date Last Done [...] topic Insurance MEDICARE PART A & B [facility] Care Teams Manager Operations Research Relationship Specialty Start Date End Date Radha Bansal MD [address] [place] [phone] PCP - General
--- OUTSIDE RECORDS SUMMARY | 2025-02-14 11:33 | XMS_ITS | Encounter Summary ---
Author Organization [facility] Address [address] [facility] [address] [place] [address] Phone Care Team Providers Care Mottle Lay Up Operator Name Role Phone Radha Gonzalez MD Primary Care Provider [phone] Encounter Details Date Type Department Care Team (Late st Contact Info) Description 10/15/2022 Procedure Pass [facility] Acoustic Intelligence Specialist Center [address] [place] [address] Social History Tobacco Use Types Packs/Day Years [...] Description 04/26/2025 11:20 AM EST Office Visit [facility] Endocrinology Clinic [address] [place] [address] Jennifer Ag MD [address] [place] [address] [email or web address] documented as of this encounter Visit Diagnoses Not on filedocumented in this encounter Care Teams Mottle Lay Up Operator Relationship Specialty Start Date End Date Radha Gonzalez MD PCP - General Internal Medicine 08/15/22 documented as of this encounter Additional Source Comments The information contained in this document represents components of the legal health record. It is not the complete legal health record.[facility]
--- OUTSIDE RECORDS SUMMARY | 2025-02-14 11:33 | XMS_ITS | Encounter Summary ---
Author Organization [facility] Address [address] [facility] [address] [place] [address] Phone Care Team Providers Care Recycle Coordinator Name Role Phone Radha Gonzalez MD Primary Care Provider Encounter Details Date Type Department Care Team (Late Contact Info) Description 10/09/2022 Procedure Pass [facility] Toe Pounder Center [address] [facility] [address] [place] [address] Social History Tobacco Use Types Packs/Day Years [...] Description 04/26/2025 11:20 AM EST Office Visit [facility] Endocrinology Clinic [address] [place] [address] Jennifer Ag MD [address] [place] [address] [email or web address] documented as of this encounter Visit Diagnoses Not on filedocumented in this encounter Care Teams Recycle Coordinator Relationship Specialty Start Date End Date Radha Gonzalez MD PCP - General Internal Medicine 08/15/22 documented as of this encounter Additional Source Comments The information contained in this document represents components of the legal health record. It is not the complete legal health record.[facility]
== END 2025-02-14 10:58 | disposition home or self-care (01) ==
LOC: HO.HPHYS 10:18
PROVIDERS: PCP Internal Medicine; Visit Provider Physician Assistant
DX: M70.61 Trochanteric bursitis, right hip (principal); M70.62 Trochanteric bursitis, left hip
CPT/HCPCS: 20610

== ENCOUNTER → 2025-02-14 10:18 | Outpatient (BNVA) | payer MEDICARE, SELFPAY | PROVIDERS: PCP Internal Medicine; Visit Provider Physician Assistant | DX: M70.62 Trochanteric bursitis, left hip (principal); M70.61 Trochanteric bursitis, right hip | CPT/HCPCS: 20610; J2003; J3301 ==

== ENCOUNTER 2025-02-21 08:18 | Outpatient (REF) | payer MEDICARE, SELFPAY ==
--- NOTE | 2025-02-21 08:23 | EMG_ITS ---
Chief complaint: Bilateral leg pain Referred by: Jarad Bansal MD Procedure done: NCS and EMG of bilateral lower extremities Bilateral peroneal and tibial motor studies were performed with F responses and tibial H reflexes. Bilateral sural and peroneal sensory studies were performed and needle examination was performed. Findings: Motor amplitude was [id number] early reduced with mild slowing of conduction velocity. Superficial peroneal conduction velocity was mildly slow. Amplitudes in sensory studies were moderately diminished. Impression: Nnmbriam-tq-[id number] axonal sensory motor peripheral neuropathy Codin 53888 x2 MTDD
--- OUTSIDE RECORDS SUMMARY | 2025-02-21 09:55 | XMS_ITS | Encounter Summary ---
Author Organization [facility] Address [address] [facility] [address] [place] [address] Phone Care Team Providers Care Optical Systems Engineer Name Role Phone Radha Gonzalez MD Primary Care Provider [phone] Encounter Details Date Type Department Care Team (Late st Contact Info) Description 10/15/2022 Procedure Pass [facility] [address] [place] [address] Social History Tobacco Use Types Packs/Day Years [...] Description 04/26/2025 11:20 AM EST Office Visit [facility] Endocrinology Clinic [address] [place] [address] Jennifer Ag MD [address] [place] [address] [email or web address] documented as of this encounter Visit Diagnoses Not on filedocumented in this encounter Care Teams Optical Systems Engineer Relationship Specialty Start Date End Date Radha Gonzalez MD PCP - General Internal Medicine 08/15/22 documented as of this encounter Additional Source Comments The information contained in this document represents components of the legal health record. It is not the complete legal health record.[facility]
--- OUTSIDE RECORDS SUMMARY | 2025-02-21 09:55 | XMS_ITS | Clinical Summary ---
Author Organization [facility] Address [address] [place] [address] Care Team Providers Care Build Technician Name Role Phone Radha Bansal MD Primary Care Provider [phone] Allergies Active Allergy Reactions Criticality Noted Date [...] Description 03/06/2025 11:15 AM EST Office Visit [facility] [address] [address] Navi Horton MD [address] [facility] [address] [place] [address] Health Maintenance Due Date Last Done [...] topic Insurance MEDICARE PART A & B [facility] Care Teams Build Technician Relationship Specialty Start Date End Date Radha Bansal MD [address] [place] [phone] PCP - General
--- OUTSIDE RECORDS SUMMARY | 2025-02-21 09:55 | XMS_ITS | Clinical Summary ---
Author Organization [facility] Address [address] [place] [address] Phone Care Team Providers Care Lieutenant General Name Role Phone Radha Gonzalez MD Primary [...] TWICE DAILY, # 12 Gm, [id number], 168, cm, 05/02/21 11:36:00 EST, Height, 83.5, [...] prevention. -Would [place] [facility] Assessment & Plan (06/07/2023 8:46 PM EDT): [...] prevention. [facility] Assessment & Plan (02/20/2023 4:39 PM EST): [...] Care Team Description 01/09/2025 Refill [facility] Endocrinology Clinic [address] [place] [address] Jennifer Ag MD Medication Refill from Last [...] Description 04/26/2025 11:20 AM EST Office Visit [facility] Endocrinology Clinic [address] [place] [address] Jennifer Ag MD [address] [place] [phone] [email or web address] Health Maintenance Due Date Last Done Comments [...] MD LAB BLOOD BKR ORDERABLES Final Result [facility] [address] [place] [address] from Last 3 Months or Most Recently Relevant to Health Maintenance Insurance [email or web address] MEDEX SUPPLEMENT MEDICARE PART A & B [email or web address] MED[employer] SUPPLEMENT MEDICARE PART A & B [email or web address] MEDEX SUPPLEMENT [email or web address] MEDEX SUPPLEMENT [email or web address] SUPPLEMENT MEDICARE PART A & B [email or web address] MEDEX SUPPLEMENT [email or web address] MED[employer] SUPPLEMENT MEDICARE PART A & B [email or web address] SUPPLEMENT MEDICARE PART A & B [email or web address] SUPPLEMENT MEDICARE PART A & B Care Teams Lieutenant General Relationship Specialty Start Date End Date Radha Gonzalez MD PCP - General Internal Medicine 08/15/22 Additional Source Comments The information contained in this document represents components of the legal health record. It is not the complete legal health record.[facility]
--- OUTSIDE RECORDS SUMMARY | 2025-02-21 09:55 | XMS_ITS | Encounter Summary ---
Author Organization [facility] Address [address] [facility] [address] [place] [address] Phone Care Team Providers Care Certified Lactation Educator Name Role Phone Radha Gonzalez MD Primary Care Provider [phone] Encounter Details Date Type Department Care Team (Late Contact Info) Description 10/09/2022 Procedure Pass [facility] Senior Telecommunications Engineer Center [address] [facility] [address] [place] [address] Social History Tobacco Use Types Packs/Day Years [...] Description 04/26/2025 11:20 AM EST Office Visit [facility] End[facility]ology Clinic [address] [place] [address] Jennifer Ag MD [address] [place] [address] [email or web address] documented as of this encounter Visit Diagnoses Not on filedocumented in this encounter Care Teams Certified Lactation Educator Relationship Specialty Start Date End Date Radha Gonzalez MD PCP - General Internal Medicine 08/15/22 documented as of this encounter Additional Source Comments The information contained in this document represents components of the legal health record. It is not the complete legal health record.[facility]
== END 2025-02-21 08:19 | disposition home or self-care (01) ==
LOC: HO.NEURO 08:18
PROVIDERS: PCP Internal Medicine; Visit Provider Internal Medicine
DX: R29.898 Other symptoms and signs involving the musculoskeletal system (principal); M79.669 Pain in unspecified lower leg
CPT/HCPCS: 95886; 95911

== ENCOUNTER → 2025-02-21 08:23 | Outpatient (BNV) | payer MEDICARE, SELFPAY | PROVIDERS: PCP Internal Medicine; Visit Provider Psychiatry & Neurology Neurology | DX: G62.89 Other specified polyneuropathies (principal) | CPT/HCPCS: 95886; 95910 ==